=== PATIENT | male | born 1930 | race Caucasian/White ===

== ENCOUNTER 2017-01-06 13:05 | Inpatient (IN) | payer MEDICARE, OTHER ==
[~2017-01-06] VITALS: Ht 165.1 cm; Wt 67.3 kg
[2017-01-06] VITALS (9 sets, daily range): BP systolic 103–136; BP diastolic 56–76; PULSE 84–118; RESP 16–18; TEMP 96.3–97.6; O2SAT 94–98
[~2017-01-06 13:05] MED LIST: ALPR0.5T3 PO; ASPI81CH CHEW; BUME2TAB PO; DIGO0.12 PO; DONE10TA7 PO; FAMO20TA2 PO; GABA300C5 PO; LEVO75TA3 PO; METO25TA6 PO; POTA-245 PO; SERT-132 PO; TRAZ50TA12 PO
[2017-01-06] MEDS ORDERED: EYECAP PO (13:07)
[2017-01-06] MEDS ORDERED: TRAZ100T4 PO (13:07)
[2017-01-06] MEDS ORDERED: TRAZ50TA12 PO (13:52)
[2017-01-06] MEDS ORDERED: PROSTAB PO (13:52)
[2017-01-06] MEDS ORDERED: SENITAB2 PO (13:52)
[2017-01-06 14:37] LABS: CHLORIDE 102 MEQ/L (98-107); POTASSIUM 4.3 MEQ/L (3.5-5.1); SODIUM (NA) 138 MEQ/L (136-145)
[2017-01-06 14:41] LABS: ANION GAP 10 MEQ/L (5-15); BICARBONATE 26.2 MEQ/L (21.0-32.0); BLOOD UREA NITROGEN 40 MG/DL (7-18)
[2017-01-06 14:43] LABS: AUTOMATED NEUTROPHIL # 4.4 TH/MM3 (1.8-7.7); BASOPHIL % 0.5 % (0.0-2.0); EOSINOPHIL % 0.4 % (0.0-4.0); HEMATOCRIT 23.4 % (39.0-51.0); LYMPHOCYTE # 0.6 TH/MM3 (1.0-4.8); MEAN CELL VOLUME 106.3 FL (80.0-100.0); MEAN CORPUSCULAR HEMOGLOBIN 34.8 PG (27.0-34.0); MEAN CORPUSCULAR HGB CONC 32.7 % (32.0-36.0); MONO % 17.4 % (0.0-8.0); NEUT % 71.7 % (16.0-70.0); PLATELET COUNT 122 TH/MM3 (150-450); RED CELL DISTRIBUTION WIDTH 28.8 % (11.6-17.2); WHITE BLOOD COUNT 6.1 TH/MM3 (4.0-11.0)
--- NOTE | 2017-01-06 14:43 | RADHPO ---
EXAM DATE/TIME: 01/06/2017 13:58 [facility] COMPARISON: No previous studies available for comparison. INDICATIONS : Short of breath. MEDICAL HISTORY : Hypertension. Congestive heart failure. Afib. Anemia. SURGICAL HISTORY : Valve replacement. ENCOUNTER: Initial ACUITY: 1 day PAIN SCORE: 8/10 LOCATION: Bilateral chest FINDINGS: The heart is enlarged. Central bronchopulmonary markings are fairly well delineated. There is some patchy areas of consolidation in the right costophrenic angle. No definite infiltrates in the left l jennie. Evidence of prior median sternotomy and valve replacement. CONCLUSION: Partial consolidative infiltrate in the right costophrenic angle. Cardiomegaly. Dominick Carnes MD on January 06, 2017 at 14:40 Board Certified Radiologist. This report was verified electronically.
[2017-01-06 14:44] LABS: ALT (GPT) 61 U/L (12-78); AST (GOT) 41 U/L (15-37); GLOMERULAR FILTRATION RATE 41 ML/MIN (>89)
[2017-01-06 14:45] LABS: TOTAL BILIRUBIN ADULT 1.2 MG/DL (0.2-1.0)
[2017-01-06 14:47] LABS: ALKALINE PHOSPHATASE 133 U/L (45-117)
--- NOTE | 2017-01-06 14:47 | PD ---
HPI Chief Complaint: Respiratory Symptoms Time Seen by Provider: 13:22 Travel History International Travel<30 days: No Contact w/Intl Traveler<30days: No Traveled to known affect area: No History of Present Illness HPI This is an 86-year-old male who has a history of myelodysplastic syndrome and congestive heart failure who presents to the emergency department with increasing shortness of breath, constant, moderate severity, worse with laying flat which is been going on for 2 days. Patient reports he was blood transfusion-dependent and was getting blood transfusions every 2-3 weeks prior to leaving the [place]. 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 They just saw a nurse practitioner today who is going to be his primary care physician and she sent him to the emergency department for evaluation. His legs have also been increasingly swollen. He is supposed to be on Bumex but he didn't get it today because they were coming to the emergency department. PFSH Past Medical History Hx Anticoagulant Therapy: Yes (ASA 81 MG DAILY) Anemia: Yes Atrial Fibrillation: Yes High Cholesterol: Yes Congestive Heart Failure: Yes Dementia: Yes Hypertension: Yes Medical other: Yes (MYELODYSPLASTIC SYNDROME) Immunizations Current: Yes Thyroid Disease: Yes (HYPO) Past Surgical History Cardiac Surgery: Yes (1 VALVE REPLACEMENT, 1 VALVE REPAIR) Eye Surgery: Yes (BILATERAL CATARACTS REMOVED) Tonsillectomy: Yes Other Surgery: Yes (BILATERAL INGUINAL HERNIA REPAIR) Social History Alcohol Use: Yes (RARE) Tobacco Use: No (NEVER) Substance Use: No Allergies-Medications (Allergen,Severity, Reaction): Coded Allergies: No Known Allergies (Unverified , 01/06/17) Reported Meds & Prescriptions Reported Meds & Active Scripts Active Reported Trazodone (Trazodone HCl) 50 Mg Tab 100 Mg PO HS Senior Tabs (Multiple Vitamins W/ Minerals) 1 Tab Tab 1 Tab PO DAILY Prosight (Multiple Vitamins W/ Minerals) 1 Tab Tab 1 Tab PO BID Sertraline (Sertraline HCl) 50 Mg Tab 50 Mg PO DAILY Metoprolol Succinate ER 24 HR (Metoprolol Succinate) 25 Mg Tab 12.5 Mg PO HS Levothyroxine (Levothyroxine Sodium) 75 Mcg Tab 75 Mcg PO DAILY Gabapentin 300 Mg Cap 300 Mg PO TID Famotidine 20 Mg Tab 20 Mg PO DAILY Donepezil 10 Mg Tab 10 Mg PO BID Digoxin 0.125 Mg Tab 0.125 Mg PO DAILY Bumetanide 2 Mg Tab 2 Mg PO DAILY Aspirin 81 Mg Chew 81 Mg CHEW DAILY Alprazolam 0.5 Mg Tab 0.5 Mg PO HS PRN Review of Systems ROS Limitations: Hearing Impaired Physical Exam Narrative GENERAL: Frail elderly male in no acute distress SKIN: Focused skin assessment warm and dry. HEAD: Atraumatic. Normocephalic. EYES: Pupils equal and round. No injection or drainage. Pale conjunctiva ENT: Moist mucous membranes NECK: Trachea midline. CARDIOVASCULAR: Regular rate and rhythm. No murmur appreciated. 2+ pitting edema in the bilateral lower extremities, right greater than left which family reports is chronic. RESPIRATORY: Clear to auscultation. Breath sounds equal bilaterally. GASTROINTESTINAL: Abdomen soft, non-tender, nondistended. MUSCULOSKELETAL: No obvious deformities. NEUROLOGICAL: Awake and alert. No obvious cranial nerve deficits. Moving all extremities. PSYCHIATRIC: Appropriate mood and affect; insight and judgment normal. Data Data Last Documented VS Vital Signs Date Time Temp Pulse Resp B/P Pulse Ox O2 Delivery O2 Flow Rate FiO2 01/06/17 13:30 103 16 96 Room Air 01/06/17 13:15 97.4 108/59 Orders Type And Screen (01/06/17 13:42) Prothrombin Time / Inr (Pt) (01/06/17 13:42) Act Partial Throm Time (Ptt) (01/06/17 13:42) Complete Blood Count With Diff (01/06/17 13:42) Comprehensive Metabolic Panel (01/06/17 13:42) ^ Insert Iv (01/06/17 13:42) B-Type Natriuretic Peptide (01/06/17 13:42) Chest, Single Ap (01/06/17 ) Bumetanide Inj (Bumex Inj) (01/06/17 15:30) Admit Order (Ed Use Only) (01/06/17 15:37) Labs Laboratory Tests Test 01/06/17 14:10 White Blood Count 6.1 TH/MM3 Red Blood Count 2.20 MIL/MM3 Hemoglobin 7.6 GM/DL Hematocrit 23.4 % Mean Corpuscular Volume 106.3 FL Mean Corpuscular Hemoglobin 34.8 PG Mean Corpuscular Hemoglobin 32.7 % Concent Red Cell Distribution Width 28.8 % Platelet Count 122 TH/MM3 Mean Platelet Volume 8.7 FL Neutrophils (%) (Auto) 71.7 % Lymphocytes (%) (Auto) 10.0 % Monocytes (%) (Auto) 17.4 % Eosinophils (%) (Auto) 0.4 % Basophils (%) (Auto) 0.5 % Neutrophils # (Auto) 4.4 TH/MM3 Lymphocytes # (Auto) 0.6 TH/MM3 Monocytes # (Auto) 1.1 TH/MM3 Eosinophils # (Auto) 0.0 TH/MM3 Basophils # (Auto) 0.0 TH/MM3 CBC Comment AUTO DIFF Differential Comment AUTO DIFF CONFIRMED Platelet Estimate LOW Platelet Morphology Comment NORMAL Basophilic Stippling FAINT Ovalocytes 1+ Prothrombin Time 14.9 SEC Prothromb Time International 1.3 RATIO Ratio Activated Partial 29.7 SEC Thromboplast Time Sodium Level 138 MEQ/L Potassium Level 4.3 MEQ/L Chloride Level 102 MEQ/L Carbon Dioxide Level 26.2 MEQ/L Anion Gap 10 MEQ/L Blood Urea Nitrogen 40 MG/DL Creatinine 1.60 MG/DL Estimat Glomerular Filtration 41 ML/MIN Rate Random Glucose 116 MG/DL Calcium Level 8.6 MG/DL Total Bilirubin 1.2 MG/DL Aspartate Amino Transf 41 U/L (AST/SGOT) Alanine Aminotransferase 61 U/L (ALT/SGPT) Alkaline Phosphatase 133 U/L B-Type Natriuretic Peptide 3017 PG/ML Total Protein 7.4 GM/DL Albumin 3.8 GM/DL Blood Type A POSITIVE Antibody Screen NEGATIVE Blood Bank Comment [facility] Medical Decision Making Medical Screen Exam Complete: Yes Emergency Medical Condition: Yes Differential Diagnosis Congestive heart failure, symptomatic anemia, pneumonia, pulmonary embolism Narrative Course This is an 86-year-old male who presents to the emergency department with a history of myelodysplastic syndrome and congestive heart failure here with shortness of breath. He appears grossly volume overloaded on exam. He is placed in a monitor and an IV was established. Labs are obtained which demonstrate anemia and a BNP of 3000. He has an infiltrate on chest x-ray which I suspect is pulmonary edema as he is otherwise afebrile and has no leukocytosis. He was given a dose of IV Bumex. I think patient requires admission for IV diuresis. He likely requires a blood transfusion but I might consider diuresing the patient first in the setting of his high risk of worsening pulmonary edema. Physician Communication Physician Communication Discussed with Dr. Linn Diagnosis Primary Impression: Congestive heart failure Qualified Code: I50.9 - Acute congestive heart failure, unspecified congestive heart failure type Additional Impression: Symptomatic anemia Admitting Information Admitting Physician Requests: it La العراقي MD Jan 06, 2017 14:47
[2017-01-06 15:00] LABS: APTT (PATIENT) 29.7 SEC (24.3-30.1); INTERNATIONAL NORMALIZED RATIO 1.3 RATIO; PROTHROMBIN TIME - PATIENT 14.9 SEC (9.8-11.6)
[2017-01-06 15:15] LABS: HEMO FLAGS AUTO DIFF
[2017-01-06] MEDS ORDERED: BUMETANIDE INJ 1 MG/4 ML VIAL IV PUSH ONE ×2 (15:30→16:30)
[2017-01-06] MEDS ORDERED: SENNOSIDES 8.6 MG TAB PO PRN (15:45)
[2017-01-06] MEDS ORDERED: MAGNESIUM HYDROXIDE SUSP 30 ML CUP PO PRN (15:45)
[2017-01-06] MEDS ORDERED: BISACODYL 10 MG SUPP RECTAL PRN (15:45)
[2017-01-06] MEDS ORDERED: NALOXONE HCL 0.4 MG/ML AMP IV PRN (15:45)
[2017-01-06] MEDS ORDERED: SODIUM CHLORIDE 0.9% FLUSH 10 ML FLUSH IV FLUSH PRN (15:45)
[2017-01-06] MEDS ORDERED: LACTULOSE SYRUP 20 GM/30 ML CUP PO PRN (15:45)
[2017-01-06 15:59] LABS: OVALOCYTES 1+ (NORMAL)
[2017-01-06 16:00] LABS: PLATELET ESTIMATE SMEAR LOW (NORMAL); PLATELET MORPHOLOGY NORMAL (NORMAL); SCAN/DIFF AUTO DIFF CONFIRMED
[2017-01-06] MEDS ORDERED: PILL SPLITTER OTHER PRN (16:00)
[2017-01-06] MEDS ORDERED: SODIUM CHLOR 0.9% 250 ML INJ 250 ML IV ONE (16:15)
[2017-01-06] MEDS ORDERED: POTASSIUM CHLORIDE 10 MEQ CONTROLLED RELEASE TAB PO ONE (16:30)
[2017-01-06] MEDS ORDERED: FUROSEMIDE 40 MG/4 ML VIAL IV PUSH ONE (16:30)
--- NOTE | 2017-01-06 16:34 | HHI.HP ---
[facility] Primary Care Physician TREVOR Tapia Admission Diagnosis chf, symptomatic anemia Diagnoses: (1) Shortness of breath Diagnosis: Principal (2) Orthopnea Diagnosis: Principal (3) Acute exacerbation of congestive heart failure Diagnosis: Principal (4) Myelodysplastic syndrome Diagnosis: Secondary (5) Atrial fibrillation Diagnosis: Secondary Chief Complaint: Shortness of breath, can't sleep Travel History International Travel<30 Days: No Contact w/Intl Traveler <30 Da: No Traveled to Known Affected Are: No History of Present Illness Written by Jeffrey Soni, acting as scribe for Dr. Linn on 01/06/17 at 16: 33. 86 year-old male with known history of chronic atrial fibrillation, congestive heart failure, myelodysplastic disorder, cardiac valve replacement, hypertension, dementia, hypothyroidism who presented to hospital because of worsening shortness of breath and dyspnea. 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 He traveled here for vacation with his daughter and son-in-law. And over last couple days he is been having worsening shortness of breath, dyspnea, unable to sleep at night, orthopnea. He does have intermittent chest discomfort which he states that with known on for a long time. He is followed by his regular doctors in [place]. And indicates that his medications were adjusted a week ago. He states that his diuretic was decreased down to only 1 tablet a day from 2 tablets a day because of possible underlying kidney abnormalities. Patient indicates that he is Short of Breath like This in the past Because of His Myelodysplastic Disorder When He Had Severe Anemia Requiring Transfusion. Patient indicates that the last time that that happened was a couple months ago and his hemoglobin was in the 6ish. Patient does indicate he does have chronic atrial fibrillation which he is not on any anticoagulation at this time due to his anemia, myelodysplastic disorder. He does have chronic right lower extremity edema in which he states is had workup done before to rule out any DVT. The son-in-law indicates that he is had a 2 pound weight gain every day for the last 3 days. The patient had workup done emergency department and found to have elevated BNP, pleural effusion and recommended admission for further evaluation management. Review of Systems Constitutional: COMPLAINS OF: Weight gain, DENIES: Diaphoretic episodes, Fatigue, Fever, Weight loss, Chills, Dizziness, Change in appetite, Night Sweats Eyes: DENIES: Blurred vision, Diplopia, Eye inflammation, Eye pain, Vision loss , Photosensitivity, Double Vision Ears, nose, mouth, throat: DENIES: Vertigo, Nasal discharge, Throat pain, Ear Pain, Running Nose, Sinus Pain Respiratory: COMPLAINS OF: Cough, Sputum production, Shortness of breath, DENIES: Apneas, Snoring, Wheezing, Hemoptysis Cardiovascular: COMPLAINS OF: Lower Extremity Edema, Orthopnea, DENIES: Chest pain, Palpitations, Syncope, Dyspnea on Exertion Gastrointestinal: COMPLAINS OF: Diarrhea, DENIES: Abdominal pain, Black stools , Bloody stools, Constipation, Nausea, Vomiting, Difficulty Swallowing, Anorexia Musculoskeletal: DENIES: Joint pain, Muscle aches, Stiffness, Joint Swelling, Back pain, Neck pain Neurologic: DENIES: Abnormal gait, Headache, Localized weakness, Paresthesias, Seizures, Speech Problems, Tremor, Poor Balance Past Family Social History Past Medical History Hypertension Chronic atrial fibrillation Hypothyroidism Congestive heart failure Chronic kidney disease Dementia Myelodysplastic syndrome requiring transfusion Macular degeneration Hyperlipidemia Past Surgical History Cardiac valve replacement Cardiac valve repair Bilateral cataract surgery Bilateral hernia repair Reported Medications Reported Meds & Active Scripts Active Reported Trazodone (Trazodone HCl) 50 Mg Tab 100 Mg PO HS Senior Tabs (Multiple Vitamins W/ Minerals) 1 Tab Tab 1 Tab PO DAILY Prosight (Multiple Vitamins W/ Minerals) 1 Tab Tab 1 Tab PO BID Sertraline (Sertraline HCl) 50 Mg Tab 50 Mg PO DAILY Metoprolol Succinate ER 24 HR (Metoprolol Succinate) 25 Mg Tab 12.5 Mg PO HS Levothyroxine (Levothyroxine Sodium) 75 Mcg Tab 75 Mcg PO DAILY Gabapentin 300 Mg Cap 300 Mg PO TID Famotidine 20 Mg Tab 20 Mg PO DAILY Donepezil 10 Mg Tab 10 Mg PO BID Digoxin 0.125 Mg Tab 0.125 Mg PO DAILY Bumetanide 2 Mg Tab 2 Mg PO DAILY Aspirin 81 Mg Chew 81 Mg CHEW DAILY Alprazolam 0.5 Mg Tab 0.5 Mg PO HS PRN Allergies: Coded Allergies: No Known Allergies (Unverified , 01/06/17) Family History Reviewed is significant for mother having late onset diabetes, father having kidney stones Social History Patient denies any tobacco use, does drink alcohol occasionally. No illicit drug use Physical Exam Vital Signs Vital Signs Date Time Temp Pulse Resp B/P Pulse Ox O2 Delivery O2 Flow Rate FiO2 01/06/17 13:30 103 16 96 Room Air 01/06/17 13:15 97.4 112 16 108/59 96 Physical Exam GENERAL: Well-developed, well-nourished, in no acute distress. alert and orientated HEENT: Head is normocephalic without any lesions or masses noted. Facial features are symmetric. Eyes: Pupils equal round reactive to light. Extraocular muscles are intact. Conjunctivae were clear. Oropharyngeal: Pharynx without any erythema edema. Tongue is midline without deviation. Buccal mucosa is moist without any masses or lesions NECK: Supple without any masses. Trachea midline no deviation. No JVD, no bruits are appreciated CARDIAC: Regular rhythm, regular rate. S1/S2 are heard. 2 or 6 ejection murmur left sternal border. Gallops or rubs. LUNGS: Diminished breath sounds noted mainly right lower lung field. No wheeze, rhonchi or rales. No use of accessory muscles on inspiration or expiration. ABDOMEN: Soft, nontender. Nondistended. Bowel sounds heard in all 4 quadrants. No organomegaly or masses. Negative rebound, negative guarding EXTREMITIES: Bilateral lower extremity 2+ pitting edema. Right lower extremity is larger than left by 2 cm. Pulses are equal bilaterally. No cyanosis or clubbing NEUROLOGY: Mood and affect appear appropriate. Cranial nerves II through XII grossly intact. Muscle strength 5/5 in upper and lower extremities bilaterally. Deep tendon reflexes are 2+ in upper and lower extremities bilaterally. Laboratory Laboratory Tests Test 01/06/17 14:10 White Blood Count 6.1 Red Blood Count 2.20 Hemoglobin 7.6 Hematocrit 23.4 Mean Corpuscular Volume 106.3 Mean Corpuscular Hemoglobin 34.8 Mean Corpuscular Hemoglobin 32.7 Concent Red Cell Distribution Width 28.8 Platelet Count 122 Mean Platelet Volume 8.7 Neutrophils (%) (Auto) 71.7 Lymphocytes (%) (Auto) 10.0 Monocytes (%) (Auto) 17.4 Eosinophils (%) (Auto) 0.4 Basophils (%) (Auto) 0.5 Neutrophils # (Auto) 4.4 Lymphocytes # (Auto) 0.6 Monocytes # (Auto) 1.1 Eosinophils # (Auto) 0.0 Basophils # (Auto) 0.0 CBC Comment AUTO DIFF Differential Comment AUTO DIFF CONFIRMED Platelet Estimate LOW Platelet Morphology Comment NORMAL Basophilic Stippling FAINT Ovalocytes 1+ Prothrombin Time 14.9 Prothromb Time International 1.3 Ratio Activated Partial 29.7 Thromboplast Time Sodium Level 138 Potassium Level 4.3 Chloride Level 102 Carbon Dioxide Level 26.2 Anion Gap 10 Blood Urea Nitrogen 40 Creatinine 1.60 Estimat Glomerular Filtration 41 Rate Random Glucose 116 Calcium Level 8.6 Total Bilirubin 1.2 Aspartate Amino Transf 41 (AST/SGOT) Alanine Aminotransferase 61 (ALT/SGPT) Alkaline Phosphatase 133 B-Type Natriuretic Peptide 3017 Total Protein 7.4 Albumin 3.8 Blood Type A POSITIVE Antibody Screen NEGATIVE Blood Bank Comment Result Diagram: 01/06/17 1410 01/06/17 1410 Imaging Last Impressions Chest X-Ray 01/06/17 0000 Signed Impressions: Service Date/Time: Friday, January 06, 2017 13:58 - CONCLUSION: Partial consolidative infiltrate in the right costophrenic angle. Cardiomegaly. Dominick Carnes MD Assessment and Plan Assessment and Plan Acute congestive heart failure, unknown diastolic versus systolic Likely secondary to reduction in patient's diuretic over the last week. Chest x-ray does show pleural effusion noted in the right costophrenic angle, cardiomegaly, bilateral lower extremity edema, elevated BNP Patient given Bumex 1 mg IV, will continue diuretic Insert Lawson for fluid monitoring, likely some component of outlet obstruction. Strict input and output Continue beta benji, evaluate for KAYA inhibitor use. Patient blood pressure low at this time Obtain echocardiogram Lower extremity edema, right greater than left. Obtain venous Doppler/ultrasound to evaluate for DVT Chronic atrial fibrillation Obtain digoxin level Continue home medications Patient/family indicates that he has not anticoagulated secondary to myelodysplastic syndrome Myelodysplastic syndrome Hemoglobin 7.6, platelet count 122 Transfuse to maintain hemoglobin greater than 8.0 Hypothyroidism Obtain TSH Resume replacement therapy Chronic kidney disease, unknown stage at this time Continue monitor renal function Avoid nephrotoxins DVT prevention Sequential compression devices, avoid chemical prophylaxis secondary to myelodysplastic syndrome Code Status Full code Discussed Condition With [facility] ED physician, nurse, family at bedside. This note was transcribed by scribe [Jeffrey Soni]. I, Dr. Masoud Linn personally performed the history, physical exam, and medical decision making; and confirmed the accuracy of the information in the transcribed note. Authenticated by Dr. Masoud Linn on 01/06/17 at 17:55. Physician Certification 2 Midnight Certification Type: Admission for Inpatient Services Order for Inpatient Services The services are ordered in accordance with Medicare regulations or non- Medicare payer requirements, as applicable. In the case of services not specified as inpatient-only, they are appropriately provided as inpatient services in accordance with the 2-midnight benchmark. Estimated LOS (days): 2 days is the estimated time the patient will need to remain in the hospital, assuming treatment plan goals are met and no additional complications. Post-Hospital Plan: Not yet determined Problem Qualifiers (1) Acute exacerbation of congestive heart failure: Qualified Code: I50.9 - Acute on chronic congestive heart failure, unspecified congestive heart failure type (2) Atrial fibrillation: Qualified Code: I48.91 - Atrial fibrillation, unspecified type Jeffrey Soni Jan 06, 2017 16:33 Masoud Linn MD Jan 06, 2017 17:55
[2017-01-06 16:37] LABS: DIGOXIN 1.2 NG/ML (0.8-2.0)
--- NOTE | 2017-01-06 17:14 | RADHPO ---
EXAM DATE/TIME: 01/06/2017 16:50 [facility] COMPARISON: No previous studies available for comparison. INDICATIONS : Bilateral leg pain and swelling. MEDICAL HISTORY : Hypercholesterolemia. Hypothyroidism. Hypertension. CHF. A-fib. Dementia. Myelodysplastic syndrome. SURGICAL HISTORY : Tonsillectomy.Inguinal hernia repair. Valve replacement. ENCOUNTER: Initial ACUITY: 4 - 6 months PAIN SCORE: 3/10 LOCATION: Bilateral legs. TECHNIQUE: Venous ultrasound of the left and right leg was performed from the inguinal ligament to the proximal calf. Real-time, color Doppler and spectral tracing, compression and augmentation techniques were us ed. FINDINGS: RIGHT LEG: There is normal compressibility of the deep venous system from the inguinal region to the proximal ca lf. No echogenic clot is seen in the lumen of the common femoral, femoral, popliteal, and posterior tibial veins. There is a normal response of the venous system to proximal and distal augmentation an d respiration. LEFT LEG: There is normal compressibility of the deep venous system from the inguinal region to the proximal ca lf. No echogenic clot is seen in the lumen of the common femoral, femoral, popliteal, and posterior tibial veins. There is a normal response of the venous system to proximal and distal augmentation an d respiration. CONCLUSION: The study is negative for deep venous thrombosis bilateral lower extremities. Dominick Carnes MD on January 06, 2017 at 17:11 Board Certified Radiologist. This report was verified electronically.
[2017-01-06] MEDS: SODIUM CHLORIDE 0.9% FLUSH 10 ML FLUSH IV FLUSH SCH (21:00)
[2017-01-06] MEDS: DONEPEZIL HCL 5 MG TAB PO SCH (21:00)
[2017-01-06] MEDS: DOCUSATE SODIUM 50 MG/SENNA 8.6 MG TAB PO SCH (21:00)
[2017-01-06] MEDS ORDERED: GABAPENTIN 100 MG CAP PO SCH (21:00)
[2017-01-06] MEDS: METOPROLOL SUCCINATE 25 MG EXTENDED RELEASE TAB PO SCH (22:17)
[2017-01-07] VITALS: BP 103/65; PULSE 84; RESP 18; TEMP 96.5; O2SAT 94
[2017-01-07 04:00] VITALS: BP 118/60; PULSE 89; RESP 18; TEMP 96.4; O2SAT 94
[2017-01-07] MEDS: LEVOTHYROXINE SODIUM 75 MCG TAB PO SCH (04:52)
[2017-01-07 05:56] LABS: BASOPHIL % 0.5 % (0.0-2.0); EOSINOPHIL % 0.4 % (0.0-4.0); HEMATOCRIT 24.5 % (39.0-51.0); LYMPH % 8.4 % (9.0-44.0); LYMPHOCYTE # 0.7 TH/MM3 (1.0-4.8); MEAN CELL VOLUME 101.9 FL (80.0-100.0); MEAN CORPUSCULAR HEMOGLOBIN 34.6 PG (27.0-34.0); MEAN CORPUSCULAR HGB CONC 33.9 % (32.0-36.0); MONO % 12.8 % (0.0-8.0); NEUT % 77.9 % (16.0-70.0); PLATELET COUNT 111 TH/MM3 (150-450); RED CELL DISTRIBUTION WIDTH 31.7 % (11.6-17.2); WHITE BLOOD COUNT 8.8 TH/MM3 (4.0-11.0)
[2017-01-07 06:19] LABS: CHLORIDE 102 MEQ/L (98-107); POTASSIUM 4.1 MEQ/L (3.5-5.1); SODIUM (NA) 139 MEQ/L (136-145)
[2017-01-07 06:20] LABS: HEMO FLAGS AUTO DIFF
[2017-01-07 06:28] LABS: ANION GAP 10 MEQ/L (5-15); BICARBONATE 26.8 MEQ/L (21.0-32.0)
[2017-01-07 06:31] LABS: ALT (GPT) 55 U/L (12-78); AST (GOT) 37 U/L (15-37); BLOOD UREA NITROGEN 36 MG/DL (7-18); GLOMERULAR FILTRATION RATE 41 ML/MIN (>89)
[2017-01-07 06:33] LABS: TOTAL BILIRUBIN ADULT 2.5 MG/DL (0.2-1.0)
[2017-01-07 06:34] LABS: ALKALINE PHOSPHATASE 121 U/L (45-117)
[2017-01-07 07:40] LABS: OVALOCYTES 1+ (NORMAL); SCAN/DIFF AUTO DIFF CONFIRMED
[2017-01-07 08:00] VITALS: BP 101/63; PULSE 78; RESP 20; TEMP 96.5; O2SAT 90
[2017-01-07] MEDS: DOCUSATE SODIUM 50 MG/SENNA 8.6 MG TAB PO SCH ×2 (09:00→21:00)
[2017-01-07 10:00] VITALS: PULSE 80
[2017-01-07] MEDS: BUMETANIDE 1 MG TAB PO SCH (10:06)
[2017-01-07] MEDS: DONEPEZIL HCL 5 MG TAB PO SCH ×2 (10:06→21:40)
[2017-01-07] MEDS: DIGOXIN 0.125 MG TAB PO SCH (10:06)
[2017-01-07] MEDS: FAMOTIDINE 20 MG TAB PO SCH (10:07)
[2017-01-07] MEDS: SERTRALINE HCL 50 MG TAB PO SCH (10:07)
[2017-01-07] MEDS: GABAPENTIN 100 MG CAP PO SCH ×2 (10:08→21:40)
[2017-01-07] MEDS: SODIUM CHLORIDE 0.9% FLUSH 10 ML FLUSH IV FLUSH SCH ×2 (10:09→21:07)
[2017-01-07] MEDS ORDERED: traMADol HCL 50 MG TAB PO PRN (11:45)
[2017-01-07 11:57] VITALS: BP 136/71; PULSE 97; RESP 24; TEMP 97.1; O2SAT 95
[2017-01-07] MEDS ORDERED: BUMETANIDE INJ 1 MG/4 ML VIAL IV PUSH ONE (12:30)
[2017-01-07] MEDS ORDERED: TAMSULOSIN HCL 0.4 MG CAP PO ONE (12:30)
--- NOTE | 2017-01-07 12:40 | HHI.PR ---
Subjective Remarks Patient says that shortness of breath and alertness is better. He reports extreme pain from Lawson. Asking to be removed. Denies any chest pain. Patient also reports chronic diarrhea over the past month. He does report recent antibiotic use for tooth infection several months ago. Objective Vital Signs Date Time Temp Pulse Resp B/P Pulse Ox O2 Delivery O2 Flow Rate FiO2 01/07/17 11:57 97.1 97 24 136/71 95 01/07/17 08:00 96.5 78 20 101/63 90 01/07/17 04:00 96.4 89 18 118/60 94 01/07/17 00:00 96.5 84 18 103/65 94 01/06/17 23:25 96.3 84 18 103/63 94 01/06/17 23:10 97.6 99 18 121/56 94 01/06/17 20:00 96.5 87 18 121/76 97 01/06/17 20:00 118 01/06/17 18:20 110 01/06/17 17:44 96.5 87 18 121/76 97 01/06/17 16:00 90 16 118/68 96 Room Air 01/06/17 15:00 104 16 136/73 96 Room Air 01/06/17 14:00 100 16 124/74 98 Room Air 01/06/17 13:30 103 16 96 Room Air 01/06/17 13:15 97.4 112 16 108/59 96 I/O 01/06/17 01/06/17 01/06/17 01/07/17 01/07/17 01/07/17 07:00 15:00 23:00 07:00 15:00 23:00 Intake Total 980 ml 550 ml Output Total 200 ml 2135 ml 1200 ml Balance -200 ml -1155 ml -650 ml Intake Oral 980 ml 200 ml IV Total 350 ml Output Urine Total 200 ml 2135 ml 1200 ml # Voids 1 5 # Bowel Movements 0 Result Diagram: 01/07/173 01/07/173 Imaging Last Impressions Lower Extremity Ultrasound 01/06/17 0000 Signed Impressions: Service Date/Time: Friday, January 06, 2017 16:50 - CONCLUSION: The study is negative for deep venous thrombosis bilateral lower extremities. Dominick Carnes MD Chest X-Ray 01/06/17 0000 Signed Impressions: Service Date/Time: Friday, January 06, 2017 13:58 - CONCLUSION: Partial consolidative infiltrate in the right costophrenic angle. Cardiomegaly. Dominick Carnes MD Objective Remarks GENERAL: Incision sitting up in bed. Appears uncomfortable from Lawson. He is alert. SKIN: Warm and dry. HEAD: Normocephalic. EYES: No scleral icterus. No injection or drainage. NECK: Supple, trachea midline. No JVD. CARDIOVASCULAR: Regular rate and rhythm without murmurs, gallops, or rubs. RESPIRATORY: Breath sounds equal bilaterally. No accessory muscle use. Crackles from yesterday have improved. GASTROINTESTINAL: Abdomen soft, non-tender, nondistended. MUSCULOSKELETAL: No cyanosis, trace peripheral edema. BACK: Nontender without obvious deformity. No CVA tenderness. A/P Assessment and Plan =====01/07/17 C. difficile ordered for diarrhea Remove Lawson. Start Flomax Hemoglobin 8.3 improved from 7.6 after transfusion. No signs of bleeding. //Acute congestive heart failure, unknown diastolic versus systolic Likely secondary to reduction in patient's diuretic over the last week. Chest x-ray does show pleural effusion noted in the right costophrenic angle, cardiomegaly, bilateral lower extremity edema, elevated BNP Patient given Bumex 1 mg IV, will continue diuretic Insert Lawson for fluid monitoring, likely some component of outlet obstruction. Strict input and output Continue beta benji, evaluate for KAYA inhibitor use. -Trying Flomax for urinary retention. We'll evaluate a beta benji use. Fluid overload improving. Echocardiogram pending. //Lower extremity edema, right greater than left. This is relatively chronic. Ultrasound negative for DVT. //Chronic atrial fibrillation Obtain digoxin level Continue home medications Patient/family indicates that he has not anticoagulated secondary to myelodysplastic syndrome //Myelodysplastic syndrome Hemoglobin 7.6, platelet count 122 Transfuse to maintain hemoglobin greater than 8.0 //Hypothyroidism Obtain TSH Resume replacement therapy //Chronic kidney disease, unknown stage at this time [place] 1.6 on admission. Stable. Monitor. -Avoid nephrotoxins //BPH/urinary retention. Patient post void 380 MLS upon Lawson placement. -01/07. With significant pain. We'll remove Lawson. Try Flomax. //Subacute diarrhea We'll order C. difficile of stool. Recent antibiotics for tooth infection several months ago. //DVT prevention Sequential compression devices, avoid chemical prophylaxis secondary to myelodysplastic syndrome Discharge Planning Depending on clinical course, may be able to go home to family. Masoud Linn MD Jan 07, 2017 12:40
--- NOTE | 2017-01-07 13:17 | RADHPO ---
EXAM DATE/TIME: 01/07/2017 12:55 [facility] COMPARISON: CHEST SINGLE AP, January 06, 2017, 13:58. INDICATIONS : Short of breath MEDICAL HISTORY : Hypercholesterolemia. Hyperparathyroidism. Hypertension. Congestive heart failure. Afib. Anemia. SURGICAL HISTORY : Tonsillectomy. Valve replacement. ENCOUNTER: Subsequent ACUITY: 2 days PAIN SCORE: 0/10 LOCATION: Bilateral chest FINDINGS: A single portable frontal view the chest shows worsening consolidation within the right lung base. Le ft lung is clear. Blunting of the costophrenic angles is seen bilaterally. Heart is enlarged. Median sternotomy wires and prosthetic heart valve. CONCLUSION: Cardiomegaly with tiny bilateral pleural effusions and right lower lobe intraalveolar opacity likely related to pulmonary edema. Dominick Platt Jr., MD on January 07, 2017 at 13:14 Board Certified Radiologist. This report was verified electronically.
--- NOTE | 2017-01-07 17:07 | ECHRPT ---
Indication: chf CONCLUSIONS LV enlargement. Mild LVH. The left ventricular systolic function is severely reduced with an estimated ejection fraction of 20 %. The right ventricle is mildly dilated. The left atrial size is [id number] dilated. The right atrial size is mildly dilated. The aortic root and proximal ascending aorta are not well visualized. Trace mitral valve regurgitation. Normally functioning mitral valve prosthesis.Trace aortic valve regurgitation. Aortic sclerosis. There is mild tricuspid valve regurgitation. BP: 121 / 76 HR: 87 Rhythm: Sinus MEASUREMENTS (Male / Female) Normal Values Technical Quality:Good 2D ECHO LV Diastolic Diameter PLAX 5.8 cm 4.2 - 5.9 / 3.9 - 5.3 cm LV Systolic Diameter PLAX 5.1 cm IVS Diastolic Thickness 1.2 cm 0.6 - 1.0 / 0.6 - 0.9 cm LVPW Diastolic Thickness 1.2 cm 0.6 - 1.0 / 0.6 - 0.9 cm LV Relative Wall Thickness 0.4 RV Internal Dim ED PLAX 4.4 cm LVOT Diameter 2.1 cm M-MODE Aortic Root Diameter MM 2.7 cm LA Systolic Diameter MM 5.2 cm LA Ao Ratio MM 1.9 DOPPLER AV Peak Velocity 181.0 cm/s AV Peak Gradient 13.1 mmHg AI Peak Velocity 335.0 cm/s AI Peak Gradient 44.9 mmHg AI Pressure Half Time 661.0 ms LVOT Peak Velocity 79.0 cm/s LVOT Peak Gradient 2.5 mmHg AV Area Cont Eq pk 1.5 cm Mitral E Point Velocity 193.0 cm/s Mitral A Point Velocity 62.3 cm/s Mitral E to A Ratio 3.1 TR Peak Velocity 309.0 cm/s TR Peak Gradient 38.0 mmHg PV Peak Velocity 95.0 cm/s PV Peak Gradient 3.6 mmHg FINDINGS Left Ventricle LV enlargement. Mild LVH. The left ventricular systolic function is severely reduced with an estimated ejection fraction of 20 %. Right Ventricle The right ventricle is mildly dilated. Left Atrium The left atrial size is [id number] dilated. Right Atrium The right atrial size is mildly dilated. Atrial Septum Normal atrial septal thickness without atrial level shunting by limited color doppler interrogation. Aorta The aortic root and proximal ascending aorta are not well visualized. Mitral Valve Trace mitral valve regurgitation. Normally functioning mitral valve prosthesis. Aortic Valve Trace aortic valve regurgitation. Aortic sclerosis. Tricuspid Valve There is mild tricuspid valve regurgitation. Pulmonary Valve No pulmonary valve regurgitation or stenosis. Vessels The inferior vena cava is normal in size. Pericardium No pericardial effusion. Ya Diane MD, FACC Edited by: [employer] CV Insecticide Supervisor (Electronically Signed) Final Date:07 January 2017 17:07 Amended: 08 January 2017 13:42 MTDD
[2017-01-07 17:49] LABS: INTERNATIONAL NORMALIZED RATIO 1.4 RATIO; PROTHROMBIN TIME - PATIENT 15.2 SEC (9.8-11.6)
[2017-01-07 19:02] LABS: C. DIFF EPI 027 PRESUMPTIVE NEGATIVE (NEGATIVE); C. DIFF TOXIN PCR NEGATIVE (NEGATIVE)
--- NOTE | 2017-01-07 19:35 | EKG ---
Date Performed: 01/06/2017 Time Performed: 16:15:50 PTAGE: 86 years EKG: Atrial fibrillation Left anterior fascicular block Inferior/lateral ST-T changes are nonspe cific Abnormal ECG NO PREVIOUS TRACING DOCTOR: Jorge Malin Interpretating Date/Time 01/07/2017 19:34:48
[2017-01-07 20:00] VITALS: BP 109/62; PULSE 98; RESP 16; TEMP 96.8; O2SAT 96
[2017-01-07] MEDS: METOPROLOL SUCCINATE 25 MG EXTENDED RELEASE TAB PO SCH (21:39)
[2017-01-07] MEDS: ALPRAZolam 0.5 MG TAB PO PRN (21:43)
[2017-01-08] VITALS: BP 100/56; PULSE 84; RESP 16; TEMP 96.4; O2SAT 97
[2017-01-08 04:00] VITALS: BP 96/55; PULSE 76; RESP 16; TEMP 96; O2SAT 98
[2017-01-08 05:48] LABS: AUTOMATED NEUTROPHIL # 3.2 TH/MM3 (1.8-7.7); BASOPHIL % 0.6 % (0.0-2.0); EOSINOPHIL # 0.1 TH/MM3 (0-0.4); EOSINOPHIL % 1.3 % (0.0-4.0); HEMATOCRIT 23.4 % (39.0-51.0); LYMPH % 17.5 % (9.0-44.0); LYMPHOCYTE # 0.9 TH/MM3 (1.0-4.8); MEAN CELL VOLUME 102.2 FL (80.0-100.0); MEAN CORPUSCULAR HEMOGLOBIN 33.8 PG (27.0-34.0); MONO % 16.5 % (0.0-8.0); NEUT % 64.1 % (16.0-70.0); PLATELET COUNT 110 TH/MM3 (150-450); RED BLOOD COUNT 2.29 MIL/MM3 (4.50-5.90); RED CELL DISTRIBUTION WIDTH 31.6 % (11.6-17.2)
[2017-01-08 05:53] LABS: HEMO FLAGS AUTO DIFF; POTASSIUM 3.5 MEQ/L (3.5-5.1)
[2017-01-08 06:04] LABS: BICARBONATE 28.3 MEQ/L (21.0-32.0); MAGNESIUM 2.7 MG/DL (1.5-2.5)
[2017-01-08] MEDS: LEVOTHYROXINE SODIUM 75 MCG TAB PO SCH (06:33)
[2017-01-08 07:31] LABS: OVALOCYTES 1+ (NORMAL); TARGET CELLS 1+ (NORMAL)
[2017-01-08 07:32] LABS: KERATOCYTES OCC (NORMAL); SCAN/DIFF AUTO DIFF CONFIRMED
[2017-01-08 08:00] VITALS: BP 115/58; PULSE 87; RESP 24; TEMP 97; O2SAT 94
[2017-01-08] MEDS: TAMSULOSIN HCL 0.4 MG CAP PO SCH (08:14)
[2017-01-08] MEDS: FAMOTIDINE 20 MG TAB PO SCH (08:14)
[2017-01-08] MEDS: GABAPENTIN 100 MG CAP PO SCH ×2 (08:15→22:28)
[2017-01-08] MEDS ORDERED: PHYTONADIONE 5 MG TAB PO ONE (08:15)
[2017-01-08] MEDS: DIGOXIN 0.125 MG TAB PO SCH (08:15)
[2017-01-08] MEDS: SERTRALINE HCL 50 MG TAB PO SCH (08:16)
[2017-01-08] MEDS: DONEPEZIL HCL 5 MG TAB PO SCH ×2 (08:16→22:27)
[2017-01-08] MEDS: BUMETANIDE 1 MG TAB PO SCH (08:17)
[2017-01-08] MEDS: DOCUSATE SODIUM 50 MG/SENNA 8.6 MG TAB PO SCH ×2 (08:17→21:00)
[2017-01-08] MEDS: SODIUM CHLORIDE 0.9% FLUSH 10 ML FLUSH IV FLUSH SCH ×2 (08:19→22:26)
[2017-01-08 08:32] LABS: ALT (GPT) 42 U/L (12-78); AST (GOT) 25 U/L (15-37)
[2017-01-08 08:33] LABS: INDIRECT BILIRUBIN 0.6 MG/DL (0.0-0.8); TOTAL BILIRUBIN ADULT 1.1 MG/DL (0.2-1.0)
[2017-01-08 08:34] LABS: ALKALINE PHOSPHATASE 106 U/L (45-117)
[2017-01-08] MEDS ORDERED: TAMSULOSIN HCL 0.4 MG CAP PO SCH (09:00)
--- NOTE | 2017-01-08 09:02 | MB ---
cc: AMILCAR GARCIA MD DATE OF CONSULTATION 01/07/2017 REASON FOR CONSULTATION 1. Gross hematuria following removal of Lawson catheter. 2. History of urinary retention. HISTORY OF PRESENT ILLNESS The patient is a 86-year-old male with a history of dementia who presented to the hospital yesterday with a several day history of worsening shortness of breath and dyspnea. The patient is here vacation from [place] where he is seen by multiple medical doctors including a tool and die inspector, sand molder and [employer] wms consultant. He has a known history of congestive heart failure and chronic atrial fibrillation. He recently had his diuretic decreased down to one tablet a day from q and since that time he has had perhaps worsened shortness of breath. He had also gained two pounds weight gain everyday for the last three days per his son-in-law. Upon admission, the patient had a Lawson catheter placed for strict intake and out take and was found to have approximately 400 in his bladder. He was started on aggressive diuresis when he was admitted. His urine was initially clear, however this morning, his urine became quite bloody but per the nurse the patient had been pulling on it quite frequently. The patient during this time was complaining of significant pain from the catheter especially at the tip of his penis. His catheter was subsequently removed at 3:30 earlier this afternoon. He has since voided at that time and had a PVR of only 132, however once he had voided, he does not have complete control of his bladder and his urine is grossly bloody was some clots. He states he usually does not have any problems urinating. He has a good stream and only gets up several times a night. However, since the catheter has been removed, he has had a very hard time controlling his bladder with symptom of leakage of urine as he gets a strong urge to go, but cannot make it to the urinal in time. He denies a history of hematuria in the past. Denies a history of kidney stones or urinary tract infections. He denies dysuria or frequency. He did not feel his bladder was full. He does feel like he emptying his bladder, but he is concerned about not being able to control his bladder. Denies abdominal pain, flank pain, nausea or vomiting. REVIEW OF SYSTEMS See HPI, otherwise all systems reviewed and were otherwise negative. PAST HISTORY Significant for: 1. Hypertension 2. Chronic atrial fibrillation 3. Hypothyroidism 4. Congestive heart failure 5. Chronic kidney disease 6. Dementia 7. Myelodysplastic syndrome 8. Macular degeneration 9. Hyperlipidemia PAST SURGICAL HISTORY 1. He has had a cardiac valve replacement 2. Bilateral cataract surgery 3. Bilateral hernia repair MEDICATIONS Include: 1. Trazodone 1. Metoprolol 2. Synthroid 3. Digoxin 4. Bumex 5. Alprazolam 6. Aspirin ALLERGIES NO KNOWN DRUG ALLERGIES. FAMILY HISTORY Father had kidney stones. No evidence of malignancies. SOCIAL HISTORY He denies any tobacco or illicit drug use. Does drink alcohol on occasion and is from [place]. PHYSICAL EXAMINATION VITAL SIGNS: Temperature 97.1, pulse 97, respiratory rate 24, BP 136/71, sating 95% on room air. GENERAL: He is alert and oriented x3 in no apparent distress, pleasant, cooperative gentleman who appears his stated age. HEAD: Normocephalic, atraumatic. NECK: Supple. Trachea is midline. No JVD. HEENT: Extraocular muscles intact. No scleral icterus and external nares are normal. LUNGS: Clear to auscultation bilaterally. No wheezes, rales or rhonchi. HEART: Irregularly irregular. No murmurs, gallops or rubs. ABDOMEN: Soft, nontender, nondistended. Positive bowel sounds. GENITOURINARY: No CVA tenderness bilaterally. His penis is circumcised. Testes are descended bilaterally, normal in size and consistency. He does have some blood at the meatus. His bladder is nonpalpable. EXTREMITIES: Nontender, 2+ edema. SKIN: No ulcers or rashes. Warm and moist. PSYCH: Normal affect. NEUROLOGIC: Cranial nerves II-XII intact. Strength 5/5 in all four extremities. He does ambulate. LABORATORY DATA White count 8.8, hemoglobin 8.3, hematocrit 24.5, platelet count 111. Sodium 139, potassium 4.1, chloride 102, bicarb 26.8, BUN 36, creatinine 1.60, calcium 8.4, glucose 108, C. Diff pending. ASSESSMENT AND PLAN The patient is an 86-year-old male admitted with CHF exacerbation with gross hematuria following catheter removal and possible urinary retention. Recommend conservative management at this time. The hematuria is likely from him pulling at the catheter. As long as he is adequately emptying his bladder and is not uncomfortable, would leave Lawson catheter out. Can use a [place] condom catheter if need to help prevent messes from happening on his bed as that is what the patient is ultimately concerned about. However if he does go into clot retention, he would need a three-way Lawson catheter placed and possibly start on continuous bladder irrigation. Hematuria is likely from him pulling at the catheter. We will start him on Flomax 0.4 mg daily. I instructed him on the proper use and possible side effects. Thank you for this consult. MD GAYLA Allen/JEFF /6:17 PM /8:46 AM
[2017-01-08 09:32] LABS: INTERNATIONAL NORMALIZED RATIO 1.3 RATIO; PROTHROMBIN TIME - PATIENT 14.4 SEC (9.8-11.6)
--- NOTE | 2017-01-08 11:14 | RADHPO ---
EXAM DATE/TIME: 01/08/2017 08:32 [facility] COMPARISON: No previous studies available for comparison. INDICATIONS : Abnormal labs. MEDICAL HISTORY : Hypothyroidism. Hypercholesterolemia. Congestive heart failure. Dementia. A-fib. Hypertension. Dyspne a. Anemia. Myelodysplastic syndrome. SURGICAL HISTORY : Tonsillectomy. Inguinal hernia repair. Valve replacement. ENCOUNTER: Initial ACUITY: 1 day PAIN SCORE: 2/10 LOCATION: Bilateral upper quadrant MEASUREMENTS: LIVER: 17.1 cm length COMMON DUCT: 5 mm RIGHT KIDNEY: 9.6 x 4.7 x 5.6 cm SPLEEN: 14.4 cm length FINDINGS: LIVER: Liver demonstrates normal echogenicity and is normal in size. There is a small amount of ascites. COMMON DUCT: Normal in caliber. GALLBLADDER: There is an isoechoic lesion in the gallbladder which appears adherent/associated with the gallbladde r wall measuring 1.2 x 0.5 x 0.6 cm. This demonstrates no significant internal vascularity. Gallbladd er wall is minimally prominent measuring up to 3 mm. This is regularly seen in patient's with abdomin al ascites. Minimal pericholecystic fluid is likely extension of ascites fluid. There is no sonograph ic Park's sign. PANCREAS: The visualized portions are within normal limits. RIGHT KIDNEY: No hydronephrosis, stone or mass. SPLEEN: Spleen is slightly enlarged measuring up to 14.4 cm. Ancillary: Incidental note of right pleural effusion. CONCLUSION: 1. Grossly normal-appearing liver by ultrasound examination. Mild splenomegaly. Small Amount of ascit es and right pleural effusion. Overall findings may reflect positive fluid balance in this patient wi th history of congestive heart failure. Congestive hepatopathy is in the differential diagnosis if pa arlynnt's liver enzymes are elevated. 2. 1.2 x 0.5 x 0.6 cm lesion in the gallbladder wall without significant internal vascularity. The di fferential considerations include adherent debris/sludge versus non-sessile gallbladder polyp. In gen eral, surgical consultation should be considered in patient's with polyps greater than 10 mm. Alterna tively followup examination may be performed, particularly if patient is a suboptimal surgical candid ate. Petey Vzaquez MD on January 08, 2017 at 10:55 Board Certified Radiologist. This report was verified electronically.
[2017-01-08 11:22] LABS: TRANSFERRIN IRON PROFILE 114 MG/DL (200-360)
[2017-01-08 11:37] LABS: FERRITIN 2102 NG/ML (26-388)
[2017-01-08 12:00] VITALS: BP 115/50; PULSE 86; RESP 20; TEMP 96.5; O2SAT 98
--- NOTE | 2017-01-08 14:44 | HHI.FF ---
Face to Face Verification Diagnosis: (1) Atrial fibrillation (2) Acute exacerbation of congestive heart failure (3) Congestive heart failure (4) Myelodysplastic syndrome (5) H/O heart valve replacement with bioprosthetic valve Physical Therapy Order: Evaluate and Treat Home Health Nursing Order: CHF education Nursing assessment with vital signs Instructions: Home health nursing for medication management. Home health nursing for CHF education. I have seen patient Gab Mancia on 01/08/17. My clinical findings support the need for the requested home health care services because: Deconditioned w/ increased weakness Med compliance is questionable I certify that my clinical findings support that this patient is homebound because: Unsafe to leave home unassisted Masoud Linn MD Jan 08, 2017 14:44
--- NOTE | 2017-01-08 15:25 | HHI.PR ---
Subjective Remarks Patient seen this morning around 10 AM. Says he is feeling better. Hematuria has improved. Urine now yellow. Patient continues with small liquid bowel movements. Denies any chest pain or shortness of breath. Discussed patient's case with daughter over the phone. She is planning on sending him to assisted living tomorrow where she will be staying with him full- time. We discussed the patient did not sleep too well last night, and that this is common in the hospital, and that it is an improvement from the somnolence on admission. We have gone down on his gabapentin which can build up in patients with renal failure. Daughter indicates that he shouldn't has a primary care doctor in the area, as well as Dr. Beverly and hematology who he will follow with. Daughter reports hemoglobin has been in the sixes in the past. Objective Vital Signs Date Time Temp Pulse Resp B/P Pulse Ox O2 Delivery O2 Flow Rate FiO2 01/08/17 12:00 96.5 86 20 115/50 98 01/08/17 08:00 97.0 87 24 115/58 94 01/08/17 04:00 96.0 76 16 96/55 98 01/08/17 00:00 96.4 84 16 100/56 97 01/07/17 20:00 96.8 98 16 109/62 96 01/07/17 20:00 98 I/O 01/07/17 01/07/17 01/07/17 01/08/17 01/08/17 01/08/17 07:00 15:00 23:00 07:00 15:00 23:00 Intake Total 550 ml 240 ml 250 ml 540 ml Output Total 1200 ml 500 ml 1350 ml 400 ml 650 ml Balance -650 ml -500 ml -1110 ml -150 ml -110 ml Intake Oral 200 ml 240 ml 250 ml 540 ml IV Total 350 ml Output Urine Total 1200 ml 500 ml 1350 ml 400 ml 650 ml Stool Total 0 ml Bladder Scan Volume Amount 132 ml # Voids 1 # Bowel Movements 1 2 Result Diagram: 01/08/17 0440 01/08/17 0440 Imaging Last Impressions Liver Ultrasound 01/08/17 0000 Signed Impressions: Service Date/Time: January 08:32 - CONCLUSION: 1. Grossly normal-appearing liver by ultrasound examination. Mild splenomegaly. Small Amount of ascites and right pleural effusion. Overall findings may reflect positive fluid balance in this patient with history of congestive heart failure. Congestive hepatopathy is in the differential diagnosis if patient's liver enzymes are elevated. 2. 1.2 x 0.5 x 0.6 cm lesion in the gallbladder wall without significant internal vascularity. The differential considerations include adherent debris/sludge versus non-sessile gallbladder polyp. In general , surgical consultation should be considered in patient's with polyps greater than 10 mm. Alternatively followup examination may be performed, particularly if patient is a suboptimal surgical candidate. Petey Vazquez MD Chest X-Ray 01/07/17 0000 Signed Impressions: Service Date/Time: Saturday, January 07, 2017 12:55 - CONCLUSION: Cardiomegaly with tiny bilateral pleural effusions and right lower lobe intraalveolar opacity likely related to pulmonary edema. Dominick Platt Jr., MD Lower Extremity Ultrasound 01/06/17 0000 Signed Impressions: Service Date/Time: Friday, January 06, 2017 16:50 - CONCLUSION: The study is negative for deep venous thrombosis bilateral lower extremities. Dominick Carnes MD Objective Remarks GENERAL: sitting up on edge of bed. Appears comfortable.. He is alert. SKIN: Warm and dry. HEAD: Normocephalic. EYES: No scleral icterus. No injection or drainage. NECK: Supple, trachea midline. No JVD. CARDIOVASCULAR: Regular rate and rhythm without murmurs, gallops, or rubs. RESPIRATORY: Breath sounds equal bilaterally. No accessory muscle use. No crackles. GASTROINTESTINAL: Abdomen soft, non-tender, nondistended. MUSCULOSKELETAL: No cyanosis, trace peripheral edema. BACK: Nontender without obvious deformity. No CVA tenderness. A/P Assessment and Plan =====01/08/17 //CHF. improved fluid overload. EF 20%. unknown baseline. We'll try to get outside records. We'll discuss with family. //Chronic diarrhea. C. difficile reviewed and negative. Discontinue precautions. Stool pathogens, as well as Giardia pending. //Hematuria appears improved. Discontinue condom catheter. Continue Flomax. Urology assistance appreciated. 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 As patient says he is feeling well, his fatigue was likely not from anemia. //Iron overload. Elevated ferritin. Likely from multiple blood transfusions. We'll hold off on blood pressure and fusion and loss of sleep necessary. Patient will follow-up with hematology as outpatient. //1.2 x 0.5 x 0.6 cm lesion in the gallbladder wall. Only to follow with PCP as outpatient. //Acute congestive heart failure, unknown diastolic versus systolic Likely secondary to reduction in patient's diuretic over the last week. Chest x-ray does show pleural effusion noted in the right costophrenic angle, cardiomegaly, bilateral lower extremity edema, elevated BNP Patient given Bumex 1 mg IV, will continue diuretic Insert Lawson for fluid monitoring, likely some component of outlet obstruction. Strict input and output Continue beta benji, evaluate for KAYA inhibitor use. -Trying Flomax for urinary retention. We'll evaluate a beta benji use. Fluid overload improving. Echocardiogram pending. //Lower extremity edema, right greater than left. This is relatively chronic. Ultrasound negative for DVT. //Chronic atrial fibrillation Obtain digoxin level Continue home medications Patient/family indicates that he has not anticoagulated secondary to myelodysplastic syndrome //Myelodysplastic syndrome Hemoglobin 7.6, platelet count 122 Initially considered to maintain hemoglobin greater than 8.0, however patient appears to be in better with diuresis, hemoglobin at same level as admission. -As patient already has what appears to be iron low overload, will conservatively manage anemia, transfuse if symptomatic. -Patient will follow-up with scruff worker, Dr. Beverly as outpatient //Hypothyroidism TSH 6.0. However this is in hospitalized setting. Resume replacement therapy -This will need to be rechecked as an outpatient. //Chronic kidney disease, unknown stage at this time -Possibly cardiorenal syndrome from fluid overload. CR 1.6 on admission. Improving with diuresis. Monitor. -Avoid nephrotoxins //BPH/urinary retention. Patient post void 380 MLS upon Lawson placement. -01/07. With significant pain. We'll remove Lawson. Try Flomax. -01/08. Pain resolved. Appears to be urinating without obstruction. Removed condom catheter. //Subacute diarrhea We'll order C. difficile of stool. Recent antibiotics for tooth infection several months ago. -Negative for C. difficile. Labs are still pending. -Follow up with primary care for this when discharge. //DVT prevention Sequential compression devices, avoid chemical prophylaxis secondary to myelodysplastic syndrome Discharge Planning Patient will be going to assisted living possibly tomorrow. Daughter will likely be staying with him. Masoud Linn MD Jan 08, 2017 15:25
[2017-01-08 16:00] VITALS: BP 114/61; PULSE 78; RESP 20; TEMP 96.2; O2SAT 96
[2017-01-08 20:00] VITALS: BP 121/87; PULSE 103; PULSE 90; RESP 16; TEMP 95.9; O2SAT 95
[2017-01-08] MEDS: ALPRAZolam 0.5 MG TAB PO PRN (22:26)
[2017-01-08] MEDS: METOPROLOL SUCCINATE 25 MG EXTENDED RELEASE TAB PO SCH (22:28)
[2017-01-09] VITALS: BP_SYST 101; BP_SYST 155; BP_DIAS 108; BP_DIAS 53; PULSE 88; RESP 16; TEMP 95.7; O2SAT 96
[2017-01-09 04:00] VITALS: BP 102/60; PULSE 86; RESP 16; TEMP 95.9; O2SAT 96
[2017-01-09] MEDS: LEVOTHYROXINE SODIUM 75 MCG TAB PO SCH (06:28)
[2017-01-09 07:10] LABS: AUTOMATED NEUTROPHIL # 3.3 TH/MM3 (1.8-7.7); BASOPHIL % 0.6 % (0.0-2.0); EOSINOPHIL # 0.1 TH/MM3 (0-0.4); EOSINOPHIL % 1.5 % (0.0-4.0); HEMATOCRIT 23.4 % (39.0-51.0); LYMPH % 14.9 % (9.0-44.0); LYMPHOCYTE # 0.8 TH/MM3 (1.0-4.8); MEAN CORPUSCULAR HEMOGLOBIN 33.8 PG (27.0-34.0); MEAN CORPUSCULAR HGB CONC 32.8 % (32.0-36.0); MONO % 16.7 % (0.0-8.0); NEUT % 66.3 % (16.0-70.0); PLATELET COUNT 108 TH/MM3 (150-450); RED BLOOD COUNT 2.27 MIL/MM3 (4.50-5.90); RED CELL DISTRIBUTION WIDTH 30.6 % (11.6-17.2); WHITE BLOOD COUNT 5.1 TH/MM3 (4.0-11.0)
[2017-01-09 07:12] LABS: POTASSIUM 3.6 MEQ/L (3.5-5.1)
[2017-01-09 07:15] LABS: HEMO FLAGS AUTO DIFF
[2017-01-09 07:16] LABS: BICARBONATE 27.1 MEQ/L (21.0-32.0); MAGNESIUM 2.6 MG/DL (1.5-2.5)
[2017-01-09 07:48] LABS: ACANTHOCYTES 1+ (NORMAL); KERATOCYTES OCC (NORMAL); OVALOCYTES 1+ (NORMAL); TEARDROP RBCS 1+ (NORMAL)
[2017-01-09 07:49] LABS: SCAN/DIFF AUTO DIFF CONFIRMED
[2017-01-09 08:00] VITALS: BP 102/60; PULSE 73; RESP 18; TEMP 97.4; O2SAT 94
[2017-01-09] MEDS: DIGOXIN 0.125 MG TAB PO SCH (08:04)
[2017-01-09] MEDS: BUMETANIDE 1 MG TAB PO SCH (08:04)
[2017-01-09] MEDS: TAMSULOSIN HCL 0.4 MG CAP PO SCH (08:05)
[2017-01-09] MEDS: GABAPENTIN 100 MG CAP PO SCH (08:05)
[2017-01-09] MEDS: FAMOTIDINE 20 MG TAB PO SCH (08:06)
[2017-01-09] MEDS: DONEPEZIL HCL 5 MG TAB PO SCH (08:06)
[2017-01-09] MEDS: SERTRALINE HCL 50 MG TAB PO SCH (08:07)
[2017-01-09] MEDS: DOCUSATE SODIUM 50 MG/SENNA 8.6 MG TAB PO SCH (08:07)
[2017-01-09] MEDS: SODIUM CHLORIDE 0.9% FLUSH 10 ML FLUSH IV FLUSH SCH (08:09)
[2017-01-09] MEDS ORDERED: GABA100C4 PO (09:14)
[2017-01-09] MEDS ORDERED: BUME1TAB PO (09:14)
[2017-01-09] MEDS ORDERED: TAMS5CAP PO (09:14)
--- NOTE | 2017-01-09 11:10 | HHI.PR ---
Subjective Remarks Patient seen this morning around 10 AM. Says he is feeling well. Denies any chest pain or shortness of breath. Denies any nausea or vomiting. Denies any dysuria or hematuria. Denies any diarrhea. Eating breakfast. Objective Vital Signs Date Time Temp Pulse Resp B/P Pulse Ox O2 Delivery O2 Flow Rate FiO2 01/09/17 08:00 97.4 73 18 102/60 94 01/09/17 04:00 95.9 86 16 102/60 96 01/09/17 00:00 95.7 88 16 101/53 96 01/08/17 20:00 95.9 90 16 121/87 95 01/08/17 20:00 103 01/08/17 16:00 96.2 78 20 114/61 96 01/08/17 12:00 96.5 86 20 115/50 98 I/O 01/08/17 01/08/17 01/08/17 01/09/17 01/09/17 01/09/17 07:00 15:00 23:00 07:00 15:00 23:00 Intake Total 250 ml 540 ml 240 ml Output Total 400 ml 650 ml 300 ml Balance -150 ml -110 ml -60 ml Intake Oral 250 ml 540 ml 240 ml Output Urine Total 400 ml 650 ml 300 ml Stool Total 0 ml # Voids 6 # Bowel Movements 2 1 Result Diagram: 01/09/1762601/09/17626 Objective Remarks GENERAL: sitting up on edge of bed eating breakfast. Appears comfortable.. He is alert to being in hospital, year, not to month. No change on exam. SKIN: Warm and dry. HEAD: Normocephalic. EYES: No scleral icterus. No injection or drainage. NECK: Supple, trachea midline. No JVD. CARDIOVASCULAR: Regular rate and rhythm without murmurs, gallops, or rubs. RESPIRATORY: Breath sounds equal bilaterally. No accessory muscle use. No crackles. GASTROINTESTINAL: Abdomen soft, non-tender, nondistended. MUSCULOSKELETAL: No cyanosis, trace peripheral edema. BACK: Nontender without obvious deformity. No CVA tenderness. A/P Assessment and Plan =====01/09/17 //CHF. improved fluid overload. EF 20%. Baseline ejection fraction around 30 % one month prior. Patient has refused AICD, catheterization in the past, and he is high risk for catheterization. Fluid restrictions. //Chronic diarrhea. Appears to be improved. Giardia antigen reviewed and negative. Stool pathogens pending. //Urinary obstruction Hematuria appears improved. I'll with urology as outpatient. Continue Flomax. //Chronic anemia secondary to myelodysplastic syndrome hemoglobin and 7.7 again today. Discussed with daughter yesterday. will follow-up with hematology as outpatient //Acute congestive heart failure, unknown diastolic versus systolic Likely secondary to reduction in patient's diuretic over the last week. Chest x-ray does show pleural effusion noted in the right costophrenic angle, cardiomegaly, bilateral lower extremity edema, elevated BNP Patient given Bumex 1 mg IV, will continue diuretic Insert Lawson for fluid monitoring, likely some component of outlet obstruction. Strict input and output Continue beta benji, evaluate for KAYA inhibitor use. -Trying Flomax for urinary retention. We'll evaluate a beta benji use. Fluid overload improved. Echocardiogram 20%. pt and family decline any invasive intervention. -avoid kaya due to kidney function, can be considered in future. //Lower extremity edema, right greater than left. This is relatively chronic. Ultrasound negative for DVT. //Chronic atrial fibrillation Obtain digoxin level Continue home medications Patient/family indicates that he is not anticoagulated secondary to myelodysplastic syndrome //Myelodysplastic syndrome Hemoglobin 7.6, platelet count 122 Initially considered to maintain hemoglobin greater than 8.0, however patient appears to be in better with diuresis, hemoglobin at same level as admission. -As patient already has what appears to be iron low overload, will conservatively manage anemia, transfuse if symptomatic. -Patient will follow-up with laborer livestock, Dr. Beverly as outpatient //Hypothyroidism TSH 6.0. However this is in hospitalized setting. Resume replacement therapy -This will need to be rechecked as an outpatient. //Chronic kidney disease, unknown stage at this time -Possibly cardiorenal syndrome from fluid overload. CR 1.6 on admission. Improving with diuresis. Monitor. -Avoid nephrotoxins //BPH/urinary retention. Patient post void 380 MLS upon Lawson placement. -/7. With significant pain. We'll remove Lawson. Try Flomax. -01/08. Pain resolved. Appears to be urinating without obstruction. Removed condom catheter. //Subacute diarrhea We'll order C. difficile of stool. Recent antibiotics for tooth infection several months ago. -Negative for C. difficile. Giardia negative. Labs are still pending. -Follow up with primary care for this when discharge. //Iron overload. Elevated ferritin. Likely from multiple blood transfusions. Hold off on blood transfusions. Patient will follow-up with hematology as outpatient. //1.2 x 0.5 x 0.6 cm lesion in the gallbladder wall. follow with PCP as outpatient. //DVT prevention Sequential compression devices, avoid chemical prophylaxis secondary to myelodysplastic syndrome Discharge Planning Patient will be going to assisted living today. Daughter will likely be staying with him. Masoud Linn MD Jan 09, 2017 11:10
--- NOTE | 2017-01-09 11:14 | HHI.DS ---
Discharge Summary Admission Date Jan 06, 2017 at 15:37 Discharge Date: Jan 09, 2017 Admitting Diagnosis chf, symptomatic anemia (1) Shortness of breath ICD Code: R06.02 Diagnosis: Principal (2) Orthopnea ICD Code: R06.01 Diagnosis: Principal (3) Acute exacerbation of congestive heart failure ICD Code: I50.9 Diagnosis: Principal (4) Myelodysplastic syndrome ICD Code: D46.9 Diagnosis: Secondary (5) Atrial fibrillation ICD Code: I48.91 Diagnosis: Secondary Procedures no invasive procedures. Please see echocardiogram report. Brief History - From Admission Written by Jeffrey Soni, acting as scribe for Dr. Linn on 01/06/17 at 16: 33. 86 year-old male with known history of chronic atrial fibrillation, congestive heart failure, myelodysplastic disorder, cardiac valve replacement, hypertension, dementia, hypothyroidism who presented to hospital because of worsening shortness of breath and dyspnea. 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 He traveled here for vacation with his daughter and son-in-law. And over last couple days he is been having worsening shortness of breath, dyspnea, unable to sleep at night, orthopnea. He does have intermittent chest discomfort which he states that with known on for a long time. He is followed by his regular doctors in [place]. And indicates that his medications were adjusted a week ago. He states that his diuretic was decreased down to only 1 tablet a day from 2 tablets a day because of possible underlying kidney abnormalities. Patient indicates that he is Short of Breath like This in the past Because of His Myelodysplastic Disorder When He Had Severe Anemia Requiring Transfusion. Patient indicates that the last time that that happened was a couple months ago and his hemoglobin was in the 6ish. Patient does indicate he does have chronic atrial fibrillation which he is not on any anticoagulation at this time due to his anemia, myelodysplastic disorder. He does have chronic right lower extremity edema in which he states is had workup done before to rule out any DVT. The son-in-law indicates that he is had a 2 pound weight gain every day for the last 3 days. The patient had workup done emergency department and found to have elevated BNP, pleural effusion and recommended admission for further evaluation management. CBC/BMP: 01/09/17 0627 01/09/17 0627 Significant Findings Laboratory Tests Test 01/06/17 01/06/17 01/07/17 01/07/17 14:10 15:04 04:43 17:30 Red Blood Count 2.20 MIL/MM3 2.40 MIL/MM3 (4.50-5.90) (4.50-5.90) Hemoglobin 7.6 GM/DL 8.3 GM/DL (13.0-17.0) (13.0-17.0) Hematocrit 23.4 % 24.5 % (39.0-51.0) (39.0-51.0) Mean Corpuscular Volume 106.3 FL 101.9 FL (80.0-100.0) (80.0-100.0) Mean Corpuscular Hemoglobin 34.8 PG 34.6 PG (27.0-34.0) (27.0-34.0) Red Cell Distribution Width 28.8 % 31.7 % (11.6-17.2) (11.6-17.2) Platelet Count 122 TH/MM3 111 TH/MM3 (150-450) (150-450) Neutrophils (%) (Auto) 71.7 % 77.9 % (16.0-70.0) (16.0-70.0) Monocytes (%) (Auto) 17.4 % 12.8 % (0.0-8.0) (0.0-8.0) Lymphocytes # (Auto) 0.6 TH/MM3 0.7 TH/MM3 (1.0-4.8) (1.0-4.8) Monocytes # (Auto) 1.1 TH/MM3 1.1 TH/MM3 (0-0.9) (0-0.9) Platelet Estimate LOW (NORMAL) Basophilic Stippling FAINT (NORMAL) Ovalocytes 1+ (NORMAL) 1+ (NORMAL) Prothrombin Time 14.9 SEC 15.2 SEC (9.8-11.6) (9.8-11.6) Blood Urea Nitrogen 40 MG/DL (7-18) 36 MG/DL (7-18) Creatinine 1.60 MG/DL 1.60 MG/DL (0.60-1.30) (0.60-1.30) Estimat Glomerular Filtration 41 ML/MIN (>89) 41 ML/MIN (>89) Rate Random Glucose 116 MG/DL 108 MG/DL (74-106) (74-106) Total Bilirubin 1.2 MG/DL 2.5 MG/DL (0.2-1.0) (0.2-1.0) Aspartate Amino Transf 41 U/L (15-37) (AST/SGOT) Alkaline Phosphatase 133 U/L 121 U/L (45-117) (45-117) B-Type Natriuretic Peptide 3017 PG/ML (0-100) Thyroid Stimulating Hormone 6.000 uIU/ML 3rd Gen (0.358-3.740) Lymphocytes (%) (Auto) 8.4 % (9.0-44.0) Calcium Level 8.4 MG/DL (8.5-10.1) Vitamin B12 Level GREATER THAN 2000 PG/ML (193-986) Test 01/08/17 01/08/17 01/08/17 01/09/17 04:40 09:15 14:54 06:27 Red Blood Count 2.29 MIL/MM3 2.27 MIL/MM3 (4.50-5.90) (4.50-5.90) Hemoglobin 7.7 GM/DL 8.2 GM/DL 7.7 GM/DL (13.0-17.0) (13.0-17.0) (13.0-17.0) Hematocrit 23.4 % 23.4 % (39.0-51.0) (39.0-51.0) Mean Corpuscular Volume 102.2 FL 103.0 FL (80.0-100.0) (80.0-100.0) Red Cell Distribution Width 31.6 % 30.6 % (11.6-17.2) (11.6-17.2) Platelet Count 110 TH/MM3 108 TH/MM3 (150-450) (150-450) Monocytes (%) (Auto) 16.5 % 16.7 % (0.0-8.0) (0.0-8.0) Lymphocytes # (Auto) 0.9 TH/MM3 0.8 TH/MM3 (1.0-4.8) (1.0-4.8) Target Cells 1+ (NORMAL) Ovalocytes 1+ (NORMAL) 1+ (NORMAL) Blood Urea Nitrogen 34 MG/DL (7-18) 34 MG/DL (7-18) Creatinine 1.50 MG/DL 1.40 MG/DL (0.60-1.30) (0.60-1.30) Estimat Glomerular Filtration 44 ML/MIN (>89) 48 ML/MIN (>89) Rate Magnesium Level 2.7 MG/DL 2.6 MG/DL (1.5-2.5) (1.5-2.5) Total Iron Binding Capacity 160 MCG/DL (250-450) Percent Iron Saturation GREATER THAN 50.0 % (20-50) Ferritin 2102 NG/ML (26-388) Total Bilirubin 1.1 MG/DL (0.2-1.0) Direct Bilirubin 0.5 MG/DL (0.0-0.2) Prothrombin Time 14.4 SEC (9.8-11.6) Tear Drop Cells 1+ (NORMAL) Acanthocytes 1+ (NORMAL) Calcium Level 8.4 MG/DL (8.5-10.1) Imaging Last Impressions Liver Ultrasound 01/08/17 0000 Signed Impressions: Service Date/Time: January 08:32 - CONCLUSION: 1. Grossly normal-appearing liver by ultrasound examination. Mild splenomegaly. Small Amount of ascites and right pleural effusion. Overall findings may reflect positive fluid balance in this patient with history of congestive heart failure. Congestive hepatopathy is in the differential diagnosis if patient's liver enzymes are elevated. 2. 1.2 x 0.5 x 0.6 cm lesion in the gallbladder wall without significant internal vascularity. The differential considerations include adherent debris/sludge versus non-sessile gallbladder polyp. In general , surgical consultation should be considered in patient's with polyps greater than 10 mm. Alternatively followup examination may be performed, particularly if patient is a suboptimal surgical candidate. Petey Vazquez MD Chest X-Ray 01/07/17 0000 Signed Impressions: Service Date/Time: Saturday, January 07, 2017 12:55 - CONCLUSION: Cardiomegaly with tiny bilateral pleural effusions and right lower lobe intraalveolar opacity likely related to pulmonary edema. Dominick Platt Jr., MD Lower Extremity Ultrasound 01/06/17 0000 Signed Impressions: Service Date/Time: Friday, January 06, 2017 16:50 - CONCLUSION: The study is negative for deep venous thrombosis bilateral lower extremities. Dominick Carnes MD Hospital Course Patient presented with fluid overload, improved with diuresis. Flomax helped with his urinary retention, gabapentin level was decreased secondary to suspected toxicity. Ejection fraction measured to be 20%, from baseline around 30%. Patient did not wish any invasive intervention, which is consistent with his previous wishes as per family. Patient was discharged home with diuretics, 2 L fluid restriction, instructions for daily weights. Follow up with cardiology. Regarding anemia. Hemoglobin in the sevens on admission, Patient was transfused on admission, initially with hemoglobin increased to 8.3, however downtrending to the sevens. Patient has follow-up with oncology as outpatient. Patient fatigue improved greatly with diuresis, decrease in gabapentin dosage , which is most likely the primary cause of his fatigue. He will follow-up with oncology as outpatient. creatinine and was 1.6, improved by discharge with diuresis.Lawson was placed on admission, however this continued secondary to discomfort. Patient did have some hematuria, which resolved spontaneously. He will follow up with urology as outpatient. for problem-based summary from most recent progress note, please see below. =====01/09/17 //CHF. improved fluid overload. EF 20%. Baseline ejection fraction around 30 % one month prior. Patient has refused AICD, catheterization in the past, and he is high risk for catheterization. Fluid restrictions. //Chronic diarrhea. Appears to be improved. Giardia antigen reviewed and negative. Stool pathogens pending. //Urinary obstruction Hematuria appears improved. I'll with urology as outpatient. Continue Flomax. //Chronic anemia secondary to myelodysplastic syndrome hemoglobin and 7.7 again today. Discussed with daughter yesterday. will follow-up with hematology as outpatient //Acute congestive heart failure, unknown diastolic versus systolic Likely secondary to reduction in patient's diuretic over the last week. Chest x-ray does show pleural effusion noted in the right costophrenic angle, cardiomegaly, bilateral lower extremity edema, elevated BNP Patient given Bumex 1 mg IV, will continue diuretic Insert Lawson for fluid monitoring, likely some component of outlet obstruction. Strict input and output Continue beta benji, evaluate for KAYA inhibitor use. -Trying Flomax for urinary retention. We'll evaluate a beta benji use. Fluid overload improved. Echocardiogram 20%. pt and family decline any invasive intervention. -avoid kaya due to kidney function, can be considered in future. //Lower extremity edema, right greater than left. This is relatively chronic. Ultrasound negative for DVT. //Chronic atrial fibrillation Obtain digoxin level Continue home medications Patient/family indicates that he is not anticoagulated secondary to myelodysplastic syndrome //Myelodysplastic syndrome Hemoglobin 7.6, platelet count 122 Initially considered to maintain hemoglobin greater than 8.0, however patient appears to be in better with diuresis, hemoglobin at same level as admission. -As patient already has what appears to be iron low overload, will conservatively manage anemia, transfuse if symptomatic. -Patient will follow-up with swift tender, Dr. Beverly as outpatient //Hypothyroidism TSH 6.0. However this is in hospitalized setting. Resume replacement therapy -This will need to be rechecked as an outpatient. //Chronic kidney disease, unknown stage at this time -Possibly cardiorenal syndrome from fluid overload. CR 1.6 on admission. Improving with diuresis. Monitor. -Avoid nephrotoxins //BPH/urinary retention. Patient post void 380 MLS upon Lawson placement. -01/07. With significant pain. We'll remove Lawson. Try Flomax. -01/08. Pain resolved. Appears to be urinating without obstruction. Removed condom catheter. //Subacute diarrhea We'll order C. difficile of stool. Recent antibiotics for tooth infection several months ago. -Negative for C. difficile. Giardia negative. Labs are still pending. -Follow up with primary care for this when discharge. //Iron overload. Elevated ferritin. Likely from multiple blood transfusions. Hold off on blood transfusions. Patient will follow-up with hematology as outpatient. //1.2 x 0.5 x 0.6 cm lesion in the gallbladder wall. follow with PCP as outpatient. //DVT prevention Sequential compression devices, avoid chemical prophylaxis secondary to myelodysplastic syndrome Discharge Planning Patient will be going to assisted living today. Daughter will likely be staying with him. Pt Condition on Discharge: Good Discharge Disposition: ACLF/NARAYAN Discharge Time: > 30 minutes Discharge Instructions DIET: Follow Instructions for: Heart Healthy Diet Fluid Restrictions: 2 Liters Activities you can perform: Regular-No Restrictions Follow up Referrals: Appointment for Follow Up with Mando Crow MD referral for palliative care. Cardiology - 1 Week Oncology - 1 Week with Charisse Beverly MD PCP Follow-up - 1 Week with Shanda [facility] Urology - 1 Week with Luis Antonio Rowe MD New Medications: Bumetanide (Bumetanide) 1 Mg Tab 1 MG PO DAILY@1600 #30 Ref 0 TAB Gabapentin (Gabapentin) 100 Mg Cap 100 MG PO BID Pain Management Days 30 CAP Tamsulosin (Flomax) 0.4 Mg Cap 0.4 MG PO DAILY help urine flow Days 30 CAP Continued Medications: Alprazolam (Alprazolam) 0.5 Mg Tab 0.5 MG PO HS PRN SLEEP Ref 0 TAB Aspirin (Aspirin) 81 Mg Chew 81 MG CHEW DAILY Ref 0 TAB Bumetanide (Bumetanide) 2 Mg Tab 2 MG PO DAILY Ref 0 TAB Digoxin (Digoxin) 0.125 Mg Tab 0.125 MG PO DAILY Regulate Heart Beat #30 Ref 0 TAB Donepezil (Donepezil) 10 Mg Tab 10 MG PO BID Dementia #30 Ref 0 TAB Famotidine (Famotidine) 20 Mg Tab 20 MG PO DAILY #60 Ref 0 TAB Levothyroxine (Levothyroxine) 75 Mcg Tab 75 MCG PO DAILY Thyroid #30 Ref 0 TAB Metoprolol Succinate ER 24 HR (Metoprolol Succinate ER 24 HR) 25 Mg Tab 12.5 MG PO HS #30 Ref 0 TAB Multiple Vitamins W/ Minerals (Prosight) 1 Tab Tab 1 TAB PO BID Multiple Vitamins W/ Minerals (Senior Tabs) 1 Tab Tab 1 TAB PO DAILY Sertraline (Sertraline) 50 Mg Tab 50 MG PO DAILY #30 Ref 0 TAB Discontinued Medications: Gabapentin (Gabapentin) 300 Mg Cap 300 MG PO TID #90 Ref 0 CAP Trazodone (Trazodone) 50 Mg Tab 100 MG PO HS Control Depression #30 Ref 0 TAB Masoud Linn MD Jan 09, 2017 11:14
[2017-01-26] MEDS ORDERED: TRAZ100T6 PO (11:06)
[2017-02-02] MEDS ORDERED: TAMS5CAP PO (13:59)
== END 2017-01-09 15:03 | DRG 292 ==
LOC: PHED 13:05 → PHEDA 15:37 → PH3A 16:36
PROVIDERS: ADMIT Internal Medicine; ATTEND Internal Medicine
PROC: 0T9B70Z Drainage of Bladder with Drainage Device, Via Natural or Artificial Opening (ICD-10-PCS; principal; 2017-01-06)
PROC: 30233N1 Transfusion of Nonautologous Red Blood Cells into Peripheral Vein, Percutaneous Approach (ICD-10-PCS; 2017-01-06)
DX: I13.0 Hypertensive heart and chronic kidney disease with heart failure and stage 1 through stage 4 chronic kidney disease, or unspecified chronic kidney disease (principal); T83.84XA Pain due to genitourinary prosthetic devices, implants and grafts, initial encounter; I48.2 Chronic atrial fibrillation; F03.90 Unspecified dementia, unspecified severity, without behavioral disturbance, psychotic disturbance, mood disturbance, and anxiety; D46.9 Myelodysplastic syndrome, unspecified; I50.9 Heart failure, unspecified; R31.0 Gross hematuria; N13.9 Obstructive and reflux uropathy, unspecified; N18.9 Chronic kidney disease, unspecified; E03.9 Hypothyroidism, unspecified; D63.8 Anemia in other chronic diseases classified elsewhere; Y84.6 Urinary catheterization as the cause of abnormal reaction of the patient, or of later complication, without mention of misadventure at the time of the procedure; H35.30 Unspecified macular degeneration; E78.00 Pure hypercholesterolemia, unspecified; Z95.2 Presence of prosthetic heart valve; Z79.82 Long term (current) use of aspirin; E78.5 Hyperlipidemia, unspecified; Z84.1 Family history of disorders of kidney and ureter; Z83.3 Family history of diabetes mellitus; K52.9 Noninfective gastroenteritis and colitis, unspecified
CPT/HCPCS: 36430; 71010; 76705; 80053; 80069; 80076; 80162; 82247; 82248; 82607; 82728; 83540; 83550; 83735; 83880; 84443; 85018; 85025; 85384; 85610; 85730; 86850; 86900; 86901; 86920; 87329; 87493; 93005; 93306; 93970; J1940; J7050; P9016

== ENCOUNTER 2017-01-26 12:15 | Emergency (ER) | payer MEDICARE, OTHER ==
[~2017-01-26] VITALS: Ht 165.1 cm; Wt 72.0 kg
[~2017-01-26 12:15] MED LIST changes: +BUME1TAB PO; +GABA100C4 PO; -GABA300C5 PO; -POTA-245 PO; +PROSTAB PO; +SENITAB2 PO; +TAMS5CAP PO; +TRAZ100T6 PO; -TRAZ50TA12 PO
[2017-01-26 12:17] VITALS: BP 121/59; PULSE 94; RESP 20; TEMP 97.5; O2SAT 98
--- NOTE | 2017-01-26 12:44 | PD ---
Physical Exam Time Seen by Provider: 12:42 Narrative 86yo M c/o SOB x 1 week w/ worsening. Sent by TREVOR Barron; seen at office this morning. Blood transfusion or Thursday. Hx CHF. Daughter reports his "belly is filling up." Patient seen in triage. Awaiting bed placement. VS reviewed. Data Data Last Documented VS Vital Signs Date Time Temp Pulse Resp B/P Pulse Ox O2 Delivery O2 Flow Rate FiO2 01/26/17 12:17 97.5 94 20 121/59 98 Room Air MDM Supervised Visit with MIMI: Portia Diaz Jan 26, 2017 12:44
--- NOTE | 2017-01-26 13:43 | RADRPT ---
EXAM DATE/TIME: 01/26/2017 13:16 [facility] COMPARISON: CHEST SINGLE AP, January 07, 2017, 12:55. INDICATIONS : Shortness of breath and cough. MEDICAL HISTORY : Hypertension. Congestive heart failure. Afib. SURGICAL HISTORY : Valve repair. ENCOUNTER: Initial ACUITY: 1 week PAIN SCORE: 0/10 LOCATION: Bilateral chest FINDINGS: Median sternotomy wires with surgical features of prior cardiac valve replacement. Mild diffuse inter stitial prominence. Mild posterior bilateral lower lobe airspace disease. Cardiac silhouette is enlar ged. Remainder of the exam is unchanged. CONCLUSION: 1. Mild bilateral posterior lower lobe airspace disease which may reflect atelectasis although differ ential considerations include aspiration and pneumonia. 2. Cardiomegaly with mild positive fluid balance. Petey Vazquez MD on January 26, 2017 at 13:38 Board Certified Radiologist. This report was verified electronically.
[2017-01-26 14:27] VITALS: BP 143/75; PULSE 98; RESP 16; O2SAT 99
[2017-01-26] MEDS ORDERED: SODIUM CHLORIDE 0.9% FLUSH 10 ML FLUSH IVF PRN (14:45)
--- NOTE | 2017-01-26 14:47 | PD ---
HPI Chief Complaint: Respiratory Distress Time Seen by Provider: 14:47 Travel History International Travel<30 days: No Contact w/Intl Traveler<30days: No Traveled to known affect area: No History of Present Illness HPI 86-year-old male with a history of atrial fibrillation, congestive heart failure , hyperlipidemia, hypertension, valve replacement and repair, myelodysplastic syndrome, dementia presents to the emergency department for evaluation of worsening orthopnea over the past 3 days. Patient is accompanied by his daughter who provides much of the history due to the patient's dementia and poor memory. The patient's daughter states that the patient has been unable to sleep since Thursday night due to shortness of breath at night. States that he also had abdominal distention over the past several days as well. He has swelling in his lower legs but states this is stable and unchanged. States he has had a dry nonproductive cough over the past 2-3 days. Denies any fever, chills, nausea, vomiting, abdominal pain, diarrhea, constipation. No other complaints. PFSH Past Medical History Hx Anticoagulant Therapy: Yes (ASA 81 MG DAILY) Anemia: Yes Atrial Fibrillation: Yes Heart Rhythm Problems: Yes (AFIB) Cancer: No Cardiovascular Problems: Yes (CHF) High Cholesterol: Yes Congestive Heart Failure: Yes Dementia: Yes Endocrine: Yes Genitourinary: Yes Hypertension: Yes Immune Disorder: No Musculoskeletal: No Neurologic: No Psychiatric: No Reproductive: No Respiratory: Yes Immunizations Current: Yes Thyroid Disease: Yes (HYPO) Influenza Vaccination: Yes Past Surgical History Cardiac Surgery: Yes (1 VALVE REPLACEMENT, 1 VALVE REPAIR 3 yrs ago) Eye Surgery: Yes (BILATERAL CATARACTS REMOVED) Tonsillectomy: Yes Other Surgery: Yes (BILATERAL INGUINAL HERNIA REPAIR) Social History Alcohol Use: Yes (RARE) Tobacco Use: No (NEVER) Substance Use: No Allergies-Medications (Allergen,Severity, Reaction): Coded Allergies: No Known Allergies (Unverified , 01/26/17) Reported Meds & Prescriptions Reported Meds & Active Scripts Active Zithromax (Azithromycin) 500 Mg Tab 500 Mg PO DAILY 5 Days Flomax (Tamsulosin HCl) 0.4 Mg Cap 0.4 Mg PO DAILY 30 Days Bumetanide 1 Mg Tab 1 Mg PO DAILY@1600 Reported Klor-Con M20 (Potassium Chloride Microencaps) 20 Meq Tab 20 Meq PO DAILY Gabapentin 300 Mg Cap 300 Mg PO BID Tamsulosin (Tamsulosin HCl) 0.4 Mg Cap 0.4 Mg PO DAILY@1600 Preservision Areds (Multiple Vitamins W/ Minerals) 1 Tab 1 Tab PO BID Trazodone (Trazodone HCl) 100 Mg Tablet 100 Mg PO HS Senior Tabs (Multiple Vitamins W/ Minerals) 1 Tab Tab 1 Tab PO DAILY Sertraline (Sertraline HCl) 50 Mg Tab 50 Mg PO DAILY Metoprolol Succinate ER 24 HR (Metoprolol Succinate) 25 Mg Tab 12.5 Mg PO HS Levothyroxine (Levothyroxine Sodium) 75 Mcg Tab 75 Mcg PO DAILY Famotidine 20 Mg Tab 20 Mg PO DAILY Donepezil 10 Mg Tab 10 Mg PO BID Digoxin 0.125 Mg Tab 0.125 Mg PO DAILY Bumetanide 2 Mg Tab 2 Mg PO DAILY Aspirin 81 Mg Chew 81 Mg CHEW DAILY Alprazolam 0.5 Mg Tab 0.5 Mg PO HS PRN Review of Systems Except as stated in HPI: all other systems reviewed are Neg Physical Exam Narrative GENERAL: Well-nourished and well-developed pleasant male patient in no acute distress who is nontoxic appearing. SKIN: Warm and dry. HEAD: Normocephalic and atraumatic. EYES: No injection, drainage, or hyphema noted. PERRLA. EOMI. ENT: No nasal drainage noted. Oropharynx is clear. NECK: Supple and the trachea is midline. CARDIOVASCULAR: Regular rate and rhythm. RESPIRATORY: Breath sounds decreased in bilateral bases. No accessory muscle use, wheezing, rhonchi, or crackles. GASTROINTESTINAL: Abdomen is mildly distended however soft and nontender. No rebound tenderness or guarding. No peritoneal signs. MUSCULOSKELETAL: Mild bilateral ankle edema. No obvious deformities, cyanosis, or ecchymosis is present throughout the upper and lower extremities. Patient has full range of motion without any signs of neurovascular compromise. NEUROLOGICAL: Awake, alert, and oriented. Normal speech and gait. Cranial nerves are grossly intact. Data Data Last Documented VS Vital Signs Date Time Temp Pulse Resp B/P Pulse Ox O2 Delivery O2 Flow Rate FiO2 01/26/17 17:04 76 16 138/65 99 Room Air 01/26/17 12:17 97.5 Orders Chest, Pa & Lat (01/26/17 ) Electrocardiogram (01/26/17 ) Complete Blood Count With Diff (01/26/17 14:43) Comprehensive Metabolic Panel (01/26/17 14:43) B-Type Natriuretic Peptide (01/26/17 14:43) Act Partial Throm Time (Ptt) (01/26/17 14:43) Prothrombin Time / Inr (Pt) (01/26/17 14:43) Ckmb (Isoenzyme) Profile (01/26/17 14:43) Troponin I (01/26/17 14:43) Iv Access Insert/Monitor (01/26/17 14:43) Ecg Monitoring (01/26/17 14:43) Oximetry (01/26/17 14:43) Sodium Chloride 0.9% Flush (Ns Flush) (01/26/17 14:45) Furosemide Inj (Lasix Inj) (01/26/17 16:30) Ct Abd/Pel W/O Iv Contrast (01/26/17 16:26) Labs Laboratory Tests Test 01/26/17 15:05 White Blood Count 5.8 TH/MM3 Red Blood Count 2.49 MIL/MM3 Hemoglobin 8.7 GM/DL Hematocrit 25.8 % Mean Corpuscular Volume 103.4 FL Mean Corpuscular Hemoglobin 35.1 PG Mean Corpuscular Hemoglobin 33.9 % Concent Red Cell Distribution Width 31.5 % Platelet Count 90 TH/MM3 Mean Platelet Volume 9.8 FL Neutrophils (%) (Auto) 73.5 % Lymphocytes (%) (Auto) 10.1 % Monocytes (%) (Auto) 13.7 % Eosinophils (%) (Auto) 1.4 % Basophils (%) (Auto) 1.3 % Neutrophils # (Auto) 4.3 TH/MM3 Lymphocytes # (Auto) 0.6 TH/MM3 Monocytes # (Auto) 0.8 TH/MM3 Eosinophils # (Auto) 0.1 TH/MM3 Basophils # (Auto) 0.1 TH/MM3 CBC Comment AUTO DIFF Differential Comment AUTO DIFF CONFIRMED Platelet Estimate LOW Platelet Morphology Comment NORMAL Ovalocytes 1+ Keratocytes OCC Prothrombin Time 14.0 SEC Prothromb Time International 1.3 RATIO Ratio Activated Partial 30.4 SEC Thromboplast Time Sodium Level 136 MEQ/L Potassium Level 4.8 MEQ/L Chloride Level 102 MEQ/L Carbon Dioxide Level 25.1 MEQ/L Anion Gap 9 MEQ/L Blood Urea Nitrogen 29 MG/DL Creatinine 1.55 MG/DL Estimat Glomerular Filtration 43 ML/MIN Rate Random Glucose 138 MG/DL Calcium Level 9.0 MG/DL Total Bilirubin 0.8 MG/DL Aspartate Amino Transf 25 U/L (AST/SGOT) Alanine Aminotransferase 24 U/L (ALT/SGPT) Alkaline Phosphatase 114 U/L Total Creatine Kinase 59 U/L Troponin I 0.05 NG/ML B-Type Natriuretic Peptide 1757 PG/ML Total Protein 7.2 GM/DL Albumin 3.7 GM/DL MDM Medical Decision Making Medical Screen Exam Complete: Yes Emergency Medical Condition: Yes Differential Diagnosis CHF exacerbation versus pneumonia versus dehydration versus electrolyte abnormality Narrative Course 86-year-old male with history of heart failure presents to the emergency department for evaluation of worsening shortness of breath at night when sleeping. Patient is afebrile, vital signs are stable. On physical examination his abdomen is distended and he has some bilateral lower extremity edema. Breath sounds are decreased at bases. EKG shows atrial fibrillation with a ventricular rate of 80 bpm, elevations or depressions. IV access is obtained, labs of been drawn and sent. Patient was placed on cardiac telemetry and pulse oximetry monitoring. Chest x-ray shows bilateral lower lobe airspace disease which may reflect atelectasis although differential considerations include aspiration or pneumonia. There is a mild positive fluid balance. CBC shows anemia with a hemoglobin of 8.7, hematocrit 25.8. This appears about at the patient's baseline. CMP shows renal insufficiency with a creatinine of 1.55, BUN 29, GFR 43. This is at the patient's baseline. Troponin is 0.05. BNP is 1757. Coags are unremarkable. CT of the abdomen and pelvis without contrast shows small shrunken liver with trace ascites and moderate intra-abdominal fat. There is no mass identified on this noncontrast head CT. Discussed all findings with the patient and his daughter. He has remained stable and without complaint while here in the emergency department. The patient's labs show he has heart failure however I don't believe this is acute heart failure. He is given a dose of Lasix 40 mg IV and is instructed to take his diuretics at home as prescribed. He'll be discharged with Zithromax for potential pneumonia noted on chest x-ray and the cough he has been experiencing over the last several days. I discussed the case with my attending physician Dr. Newell who also evaluated the patient and is in agreement with this plan. Patient is stable for discharge to home. Diagnosis Primary Impression: Congestive heart failure Qualified Code: I50.9 - Chronic congestive heart failure, unspecified congestive heart failure type Additional Impressions: Distended abdomen Pneumonia Qualified Code: J18.9 - Pneumonia of both lower lobes due to infectious organism Referrals: Primary Care Physician Patient Instructions: General Instructions Additional Instructions: Take your diuretic as prescribed by your doctor. Follow-up with your Primary Care Physician. Return to the ED for any acute worsening of symptoms. Med/Other Pt SpecificInfo: Prescription(s) given Scripts Azithromycin (Zithromax)500 Mg [id number] Mg PO DAILY 5 Days Ref 0 Prov:Vanessa Newell DO 01/26/17 Disposition: 01 DISCHARGE HOME Condition: Stable Portia Marlow Jan 26, 2017 14:47
[2017-01-26] MEDS ORDERED: TAMS0.4C4 PO (14:57)
[2017-01-26] MEDS ORDERED: OCUVTAB4 PO (14:57)
[2017-01-26] MEDS ORDERED: GABA300C5 PO (14:59)
[2017-01-26] MEDS ORDERED: POTA-245 PO (15:00)
[2017-01-26 15:30] LABS: APTT (PATIENT) 30.4 SEC (24.3-30.1); INTERNATIONAL NORMALIZED RATIO 1.3 RATIO
[2017-01-26 15:33] LABS: AUTOMATED NEUTROPHIL # 4.3 TH/MM3 (1.8-7.7); BASOPHIL # 0.1 TH/MM3 (0-0.2); BASOPHIL % 1.3 % (0.0-2.0); EOSINOPHIL # 0.1 TH/MM3 (0-0.4); EOSINOPHIL % 1.4 % (0.0-4.0); HEMATOCRIT 25.8 % (39.0-51.0); HEMO FLAGS AUTO DIFF; LYMPH % 10.1 % (9.0-44.0); LYMPHOCYTE # 0.6 TH/MM3 (1.0-4.8); MEAN CELL VOLUME 103.4 FL (80.0-100.0); MEAN CORPUSCULAR HEMOGLOBIN 35.1 PG (27.0-34.0); MEAN CORPUSCULAR HGB CONC 33.9 % (32.0-36.0); MONO % 13.7 % (0.0-8.0); NEUT % 73.5 % (16.0-70.0); PLATELET COUNT 90 TH/MM3 (150-450); RED BLOOD COUNT 2.49 MIL/MM3 (4.50-5.90); RED CELL DISTRIBUTION WIDTH 31.5 % (11.6-17.2); WHITE BLOOD COUNT 5.8 TH/MM3 (4.0-11.0)
[2017-01-26 16:00] LABS: ALKALINE PHOSPHATASE 114 U/L (45-117); ALT (GPT) 24 U/L (12-78); ANION GAP 9 MEQ/L (5-15); AST (GOT) 25 U/L (15-37); BICARBONATE 25.1 MEQ/L (21.0-32.0); BLOOD UREA NITROGEN 29 MG/DL (7-18); CHLORIDE 102 MEQ/L (98-107); GLOMERULAR FILTRATION RATE 43 ML/MIN (>89); POTASSIUM 4.8 MEQ/L (3.5-5.1); SODIUM (NA) 136 MEQ/L (136-145); TOTAL BILIRUBIN ADULT 0.8 MG/DL (0.2-1.0)
[2017-01-26 16:05] LABS: CREATINE KINASE 59 U/L (39-308)
[2017-01-26 16:12] LABS: KERATOCYTES OCC (NORMAL); OVALOCYTES 1+ (NORMAL); PLATELET ESTIMATE SMEAR LOW (NORMAL); PLATELET MORPHOLOGY NORMAL (NORMAL); SCAN/DIFF AUTO DIFF CONFIRMED
[2017-01-26] MEDS ORDERED: FUROSEMIDE 40 MG/4 ML VIAL IV PUSH ONE (16:30)
[2017-01-26 17:04] VITALS: BP 138/65; PULSE 76; RESP 16; O2SAT 99
--- NOTE | 2017-01-26 17:19 | RADRPT ---
EXAM DATE/TIME: 01/26/2017 16:46 [facility] COMPARISON: No previous studies available for comparison. INDICATIONS : Abdominal pain and distention for three months. ORAL CONTRAST: No oral contrast ingested. RADIATION DOSE: 14.27 CTDIvol (mGy) MEDICAL HISTORY : Hypothyroidism. Congestive heart failure. SURGICAL HISTORY : None. ENCOUNTER: Initial ACUITY: 3 months PAIN SCALE: 5/10 LOCATION: Bilateral abdomen TECHNIQUE: Volumetric scanning of the abdomen and pelvis was performed. Using automated exposure control and ad justment of the mA and/or kV according to patient size, radiation dose was kept as low as reasonably achievable to obtain optimal diagnostic quality images. DICOM format image data is available electro nically for review and comparison. FINDINGS: Small right pleural effusion is evident. There is biventricular cardiomegaly and mitral valve prosth esis evident. Trace ascites is evident. The liver is small. The spleen is prominent. The pancreas and adrenals a re unremarkable. Small gallstones are noted. The kidneys are small without hydronephrosis. Multiple diverticuli are present in the sigmoid colon without diverticulitis. Abundant abdominal fat is noted There is an inguinal hernia on the left containing only fat Moderate vascular calcifications are noted Extensive degenerative changes are present in the thoracolumbar spine. CONCLUSION: Small shrunken liver with trace ascites and moderate intra-abdominal fat. There is n o mass identified on this noncontrast CT Terry Carrero MD FACR on January 26, 2017 at 17:14 Board Certified Radiologist. This report was verified electronically.
[2017-01-26] MEDS ORDERED: ZITH500T PO (17:37)
--- NOTE | 2017-01-27 17:23 | EKG ---
Date Performed: 01/26/2017 Time Performed: 14:35:47 PTAGE: 86 years EKG: ATRIAL FIBRILLATION BORDERLINE LEFT AXIS DEVIATION POSSIBLE RIGHT VENTRICULAR CONDUCTION DE LAY NONSPECIFIC ST & T-WAVE ABNORMALITY ABNORMAL RHYTHM ECG PREVIOUS TRACING : 01/06/2017 16.15 Compared to prior tracing no significant change DOCTOR: Moreno Najera Interpretating Date/Time 01/27/2017 17:21:21
[2017-02-02] MEDS ORDERED: TAMS5CAP PO (13:59)
== END 2017-01-26 18:23 | disposition home or self-care (01) ==
LOC: NEPE 12:15
DX: I50.9 Heart failure, unspecified (principal); J18.9 Pneumonia, unspecified organism; D64.9 Anemia, unspecified; N28.9 Disorder of kidney and ureter, unspecified; E78.5 Hyperlipidemia, unspecified; I10 Essential (primary) hypertension; D46.9 Myelodysplastic syndrome, unspecified; F03.90 Unspecified dementia, unspecified severity, without behavioral disturbance, psychotic disturbance, mood disturbance, and anxiety; I48.91 Unspecified atrial fibrillation
CPT/HCPCS: 71020; 74176; 80053; 82550; 83880; 84484; 85025; 85610; 85730; 93005; 96374; 99285; J1940

== ENCOUNTER → 2017-04-08 | Outpatient (CLI) | payer MEDICARE, OTHER ==
[~2017-04-08] MED LIST changes: +ALBUAER3 INH; +ATOR40TA16 PO; -BUME2TAB PO; -DONE10TA7 PO; +FINA5TAB2 PO; +FLUT1SPR5 EACH NARE; -GABA100C4 PO; +OCUVTAB4 PO; -PROSTAB PO; +SACU1TAB PO; +SPIR25 PO; +TAMS0.4C4 PO; +TORS1TAB12 PO; +TRAZ50TA12 PO; +TRIAM.1%T TOPICAL
[2017-04-08 12:19] LABS: AUTOMATED NEUTROPHIL # 3.2 TH/MM3 (1.8-7.7); BASOPHIL # 0.1 TH/MM3 (0-0.2); BASOPHIL % 1.9 % (0.0-2.0); EOSINOPHIL # 0.1 TH/MM3 (0-0.4); EOSINOPHIL % 1.6 % (0.0-4.0); HEMATOCRIT 25.9 % (39.0-51.0); LYMPH % 13.6 % (9.0-44.0); LYMPHOCYTE # 0.6 TH/MM3 (1.0-4.8); MEAN CELL VOLUME 101.9 FL (80.0-100.0); MEAN CORPUSCULAR HEMOGLOBIN 32.6 PG (27.0-34.0); MONO % 14.7 % (0.0-8.0); NEUT % 68.2 % (16.0-70.0); PLATELET COUNT 53 TH/MM3 (150-450); RED BLOOD COUNT 2.54 MIL/MM3 (4.50-5.90); WHITE BLOOD COUNT 4.7 TH/MM3 (4.0-11.0)
[2017-04-08 12:20] LABS: HEMO FLAGS AUTO DIFF
[2017-04-08 12:27] LABS: PLATELET ESTIMATE SMEAR LOW (NORMAL); PLATELET MORPHOLOGY NORMAL (NORMAL); SCAN/DIFF AUTO DIFF CONFIRMED
[2017-04-08 13:47] LABS: BLOOD, URINE NEG (NEG); GLUCOSE,URINE NEG (NEG); HYALINE CAST, URINE 4 /lpf (RARE); KETONE, URINE NEG (NEG); NITRITE,URINE NEG (NEG); URINE COLOR LIGHT-YELLOW (YELLW/STRAW)
[2017-04-08 14:23] LABS: DIGOXIN 1.2 NG/ML (0.8-2.0)
== END ==
LOC: OLAB 12:00
PROVIDERS: ATTEND Nurse Practitioner Family
DX: Z00.00 Encounter for general adult medical examination without abnormal findings (principal)
CPT/HCPCS: 36415; 80162; 81001; 82306; 82570; 83970; 84156; 85025; 86160; 86162; 86803

== ENCOUNTER → 2017-04-21 | Outpatient (CLI) | payer MEDICARE, OTHER ==
[~2017-04-21] MED LIST changes: -TAMS5CAP PO; -TRAZ100T6 PO
[2017-04-21 10:12] LABS: HEMATOCRIT 24.1 % (39.0-51.0); MEAN CELL VOLUME 101.1 FL (80.0-100.0); MEAN CORPUSCULAR HEMOGLOBIN 34.1 PG (27.0-34.0); MEAN CORPUSCULAR HGB CONC 33.7 % (32.0-36.0); PLATELET COUNT 88 TH/MM3 (150-450); RED BLOOD COUNT 2.39 MIL/MM3 (4.50-5.90); RED CELL DISTRIBUTION WIDTH 29.6 % (11.6-17.2); WHITE BLOOD COUNT 7.7 TH/MM3 (4.0-11.0)
[2017-04-21 10:17] LABS: REVIEW FLAG FINAL
[2017-04-21 12:52] LABS: ALT (GPT) 19 U/L (12-78); ANION GAP 9 MEQ/L (5-15); AST (GOT) 16 U/L (15-37); BICARBONATE 23.9 MEQ/L (21.0-32.0); BLOOD UREA NITROGEN 34 MG/DL (7-18); CHLORIDE 104 MEQ/L (98-107); GLOMERULAR FILTRATION RATE 33 ML/MIN (>89); GLUCOSE,FASTING 107 MG/DL (74-99); POTASSIUM 4.3 MEQ/L (3.5-5.1); SODIUM (NA) 137 MEQ/L (136-145)
[2017-04-21 12:55] LABS: ALKALINE PHOSPHATASE 88 U/L (45-117)
== END ==
LOC: OLAB 09:51
PROVIDERS: ATTEND Nurse Practitioner Family
DX: R06.02 Shortness of breath (principal); D64.9 Anemia, unspecified; I50.22 Chronic systolic (congestive) heart failure
CPT/HCPCS: 36415; 80053; 85027

== ENCOUNTER 2017-05-13 12:38 | Inpatient (IN) | payer MEDICARE, OTHER ==
[~2017-05-13] VITALS: Ht 165.1 cm; Wt 71.6 kg
[2017-05-13] VITALS (14 sets, daily range): BP systolic 91–137; BP diastolic 55–69; PULSE 52–136; RESP 16–21; TEMP 97.4–98.5; O2SAT 95–100
[~2017-05-13 12:38] MED LIST changes: -ALBUAER3 INH; -ATOR40TA16 PO; -SPIR25 PO; -TORS1TAB12 PO
[2017-05-13] MEDS ORDERED: SODIUM CHLOR 0.9% 1000 ML INJ 1,000 ML IV ONE (13:00)
[2017-05-13] MEDS ORDERED: SODIUM CHLORIDE 0.9% FLUSH 10 ML FLUSH IVF PRN (13:00)
--- NOTE | 2017-05-13 13:09 | PD ---
HPI Chief Complaint: Chest Pain Time Seen by Provider: 12:51 Travel History International Travel<30 days: No Contact w/Intl Traveler<30days: No Traveled to known affect area: No History of Present Illness HPI 86-year-old male with PMH of A. fib, CHF, HTN, hypothyroidism, bovine valve replacement, myelodysplastic syndrome presents to the ED for evaluation of 1 week history of increasing shortness of breath and burning chest pain. Worsened on exertion. Patient also complains of decreased appetite over the last few days. He denies fevers, chills, palpitations, cough, nausea, vomiting. He endorses chronic loose stools, no worse today. Denies melena, hematochezia , BRBPR. The patient went to see his primary care provider today, EKG there showed A. fib with RVR. The patient was encouraged to come to the ED. He refused and decided to go have lab work drawn. After being called back with the result that his hemoglobin was 6.2 he decided to present to the ED. The patient's daughter is at bedside and helps to provide the history. He is followed by Dr. Crooks, cardiology and Dr. Mcgraw, heme/onc. [facility] Past Medical History Hx Anticoagulant Therapy: Yes (ASA 81 MG DAILY) Anemia: Yes Atrial Fibrillation: Yes Heart Rhythm Problems: Yes (AFIB) Cancer: No Cardiovascular Problems: Yes (CHF) High Cholesterol: Yes Congestive Heart Failure: Yes Dementia: Yes Endocrine: Yes Genitourinary: Yes Hypertension: Yes Immune Disorder: No Musculoskeletal: No Neurologic: No Psychiatric: No Reproductive: No Respiratory: Yes Immunizations Current: Yes Thyroid Disease: Yes (HYPO) Past Surgical History Cardiac Surgery: Yes (1 VALVE REPLACEMENT, 1 VALVE REPAIR 3 yrs ago) Eye Surgery: Yes (BILATERAL CATARACTS REMOVED) Tonsillectomy: Yes Other Surgery: Yes (BILATERAL INGUINAL HERNIA REPAIR) Social History Alcohol Use: Yes (RARE) Tobacco Use: No (NEVER) Substance Use: No Allergies-Medications (Allergen,Severity, Reaction): Coded Allergies: No Known Allergies (Unverified , 05/13/17) Reported Meds & Prescriptions Reported Meds & Active Scripts Active Tamsulosin (Tamsulosin HCl) 0.4 Mg Cap 0.4 Mg PO HS Flonase Nasal [place] (Fluticasone Nasal [place]) 50 Mcg/Act [place] 50 Mcg EACH NARE BID Entresto (Sacubitril-Valsartan) 24-26 Mg Tab 1 Tab PO BID Sertraline (Sertraline HCl) 50 Mg Tab 50 Mg PO DAILY Metoprolol Succinate ER 24 HR (Metoprolol Succinate) 25 Mg Tab 12.5 Mg PO HS Famotidine 20 Mg Tab 20 Mg PO DAILY Digoxin 0.125 Mg Tab 0.125 Mg PO DAILY Bumetanide 1 Mg Tab 1 Mg PO DAILY Triamcinolone Topical (Triamcinolone Acetonide) 0.1 % Oint 1 Applic TOPICAL BID Levothyroxine (Levothyroxine Sodium) 75 Mcg Tab 75 Mcg PO DAILY Reported Finasteride 5 Mg Tab 5 Mg PO DAILY Do not crush. Preservision Areds (Multiple Vitamins W/ Minerals) 1 Tab 1 Tab PO BID Senior Tabs (Multiple Vitamins W/ Minerals) 1 Tab Tab 1 Tab PO DAILY Aspirin 81 Mg Chew 81 Mg CHEW DAILY Alprazolam 0.5 Mg Tab 0.5 Mg PO HS PRN Review of Systems Except as stated in HPI: all other systems reviewed are Neg Physical Exam Narrative GENERAL: Well-nourished, well-developed thin, pleasant white male in no acute distress.. SKIN: Focused skin assessment warm/dry. HEAD: Normocephalic. EYES: No scleral icterus. No injection or drainage. NECK: Supple, trachea midline. No JVD or lymphadenopathy. CARDIOVASCULAR: Irregularly irregular rate without appreciable M/R/G. RESPIRATORY: Breath sounds clear and equal bilaterally. No accessory muscle use. GASTROINTESTINAL: Abdomen soft, non-tender, nondistended. Active bowel sounds. RECTAL EXAM: No masses or tenderness, stool is brown. Guaiac negative. MUSCULOSKELETAL: No cyanosis, or edema. BACK: Nontender without obvious deformity. No CVA tenderness. Data Data Last Documented VS Vital Signs Date Time Temp Pulse Resp B/P (MAP) Pulse Ox O2 Delivery O2 Flow Rate FiO2 05/13/17 15:16 97.4 110 19 117/68 99 05/13/17 12:56 Nasal Cannula 2.00 Orders Orders Electrocardiogram (05/13/17 12:52) Basic Metabolic Panel (Bmp) (05/13/17 12:52) B-Type Natriuretic Peptide (05/13/17 12:52) Ckmb (Isoenzyme) Profile (05/13/17 12:52) Complete Blood Count With Diff (05/13/17 12:52) Magnesium (Mg) (05/13/17 12:52) Prothrombin Time / Inr (Pt) (05/13/17 12:52) Act Partial Throm Time (Ptt) (05/13/17 12:52) Troponin I (05/13/17 12:52) Chest, Single Ap (05/13/17 12:52) Ecg Monitoring (05/13/17 12:52) Bilateral Bp Monitoring (05/13/17 12:52) Iv Access Insert/Monitor (05/13/17 12:52) Oximetry (05/13/17 12:52) Oxygen Administration (05/13/17 12:52) Sodium Chloride 0.9% Flush (Ns Flush) (05/13/17 13:00) Type And Screen (05/13/17 12:52) Red Blood Cells (Rbc) (05/13/17 12:52) Blood Product Administration (05/13/17 12:52) Sodium Chlor 0.9% 1000 Ml Inj (Ns 1000 M (05/13/17 13:00) Furosemide Inj (Lasix Inj) (05/13/17 14:45) Consult Cardiology (05/13/17 ) Consult Hematology (05/13/17 ) (Hub Use Only)Inp Phy Cons/Ref (05/13/17 ) Admit Order (Ed Use Only) (05/13/17 15:50) Labs Laboratory Tests Test 05/13/17 13:00 White Blood Count 4.7 TH/MM3 Red Blood Count 1.80 MIL/MM3 Hemoglobin 6.5 GM/DL Hematocrit 19.6 % Mean Corpuscular Volume 108.9 FL Mean Corpuscular Hemoglobin 36.0 PG Mean Corpuscular Hemoglobin Concent 33.1 % Red Cell Distribution Width 31.1 % Platelet Count 95 TH/MM3 Mean Platelet Volume 9.9 FL Neutrophils (%) (Auto) 73.3 % Lymphocytes (%) (Auto) 12.5 % Monocytes (%) (Auto) 12.2 % Eosinophils (%) (Auto) 0.8 % Basophils (%) (Auto) 1.2 % Neutrophils # (Auto) 3.4 TH/MM3 Lymphocytes # (Auto) 0.6 TH/MM3 Monocytes # (Auto) 0.6 TH/MM3 Eosinophils # (Auto) 0.0 TH/MM3 Basophils # (Auto) 0.1 TH/MM3 CBC Comment AUTO DIFF Differential Comment AUTO DIFF CONFIRMED Prothrombin Time 14.4 SEC Prothromb Time International Ratio 1.3 RATIO Activated Partial Thromboplast Time 27.9 SEC Blood Urea Nitrogen 46 MG/DL Creatinine 1.91 MG/DL Random Glucose 147 MG/DL Calcium Level 9.2 MG/DL Magnesium Level 2.8 MG/DL Sodium Level 138 MEQ/L Potassium Level 4.5 MEQ/L Chloride Level 107 MEQ/L Carbon Dioxide Level 20.0 MEQ/L Anion Gap 11 MEQ/L Estimat Glomerular Filtration Rate 33 ML/MIN Total Creatine Kinase 182 U/L Troponin I 2.34 NG/ML B-Type Natriuretic Peptide 4271 PG/ML MDM Medical Decision Making Medical Screen Exam Complete: Yes Emergency Medical Condition: Yes Differential Diagnosis Chest pain versus CHF exacerbation versus symptomatic anemia versus pneumonia versus ACS versus metabolic drainage from versus other Narrative Course 86-year-old male with PMH of A. fib, CHF, HTN, hypothyroidism, bovine valve replacement, myelodysplastic syndrome presents to the ED for evaluation of 1 week history of increasing shortness of breath and burning chest pain. Worsened on exertion. He denies fevers, chills, palpitations, cough, nausea, vomiting. He endorses chronic loose stools, no worse today. Denies melena, hematochezia, BRBPR. She was seen by the PCP today, EKG in the office showed A. fib with RVR. Hemoglobin on outpatient labs was 6.2. He is followed by Dr. Crooks, cardiology and Dr. Mcgraw, heme/onc. Vitals reviewed. Patient is tachycardic on presentation. Physical exam reveals a humerus white male in no acute distress. Heart rate irregularly irregular without appreciable M/R/G. Chest CTAB. Abdomen soft, nontender. No lower extremity edema. Area patient was administered a liter of fluids. EKG rate 114, A. fib with RVR. Mild ST depression with slurring in V4 V5 and V6, similar to previous EKG of . Reviewed by Dr. Almonte CXR: Mild CHF per radiology read. Cardiac enzymes: Troponin 2.3. CBC: WBCs 4.7. Hemoglobin 6.5. Hematocrit 19.6. Platelet 95. CMP: BUN 46, creatinine 1.91. BNP: [address] Crooks, who recommends treatment of the heart failure. He does not recommend heparin initiation at this time for NSTEMI. I spoke with Dr. Hernández, supervisor bonding heme onc provider. He recommends 2 units of PRBCs and admission. I spoke with the residents who agreed to accept the patient to the CICU under Dr.Van Monet. Please see medicine, heme/onc and cardiology notes for disposition. HemaPrompt Point of Care Internal Pos. & Neg. Controls: Passed Fecal Specimen Occult Blood: Negative Dara Horowitz May 13, 2017 13:09
[2017-05-13 13:30] LABS: AUTOMATED NEUTROPHIL # 3.4 TH/MM3 (1.8-7.7); BASOPHIL # 0.1 TH/MM3 (0-0.2); BASOPHIL % 1.2 % (0.0-2.0); EOSINOPHIL % 0.8 % (0.0-4.0); LYMPH % 12.5 % (9.0-44.0); LYMPHOCYTE # 0.6 TH/MM3 (1.0-4.8); MEAN CELL VOLUME 108.9 FL (80.0-100.0); MEAN CORPUSCULAR HGB CONC 33.1 % (32.0-36.0); MONO % 12.2 % (0.0-8.0); NEUT % 73.3 % (16.0-70.0); PLATELET COUNT 95 TH/MM3 (150-450); RED CELL DISTRIBUTION WIDTH 31.1 % (11.6-17.2); WHITE BLOOD COUNT 4.7 TH/MM3 (4.0-11.0)
[2017-05-13 13:36] LABS: HEMO FLAGS AUTO DIFF
--- NOTE | 2017-05-13 13:37 | RADRPT ---
EXAM DATE/TIME: 05/13/2017 13:27 [facility] COMPARISON: CHEST SINGLE AP, January 07, 2017, 12:55. INDICATIONS : Chest pain and shortness of breath. MEDICAL HISTORY : Hypertension. Congestive heart failure. Afib. SURGICAL HISTORY : Valve repair. ENCOUNTER: Initial ACUITY: 2 days PAIN SCORE: 7/10 LOCATION: Bilateral chest FINDINGS: First moderate congestive failure present, with minimal blunting right posterior sulcus. Would valve prosthesis is noted. There is no pneumothorax. The portion of the bony skeleton visualized is unrem arkable. CONCLUSION: Moderate congestive failure. Terry Carrero MD FACR on May 13, 2017 at 13:29 Board Certified Radiologist. This report was verified electronically.
[2017-05-13 13:38] LABS: APTT (PATIENT) 27.9 SEC (24.3-30.1); INTERNATIONAL NORMALIZED RATIO 1.3 RATIO; PROTHROMBIN TIME - PATIENT 14.4 SEC (9.8-11.6)
[2017-05-13 13:44] LABS: HEMATOCRIT 19.6 % (39.0-51.0)
[2017-05-13 14:10] LABS: MAGNESIUM 2.8 MG/DL (1.5-2.5); POTASSIUM 4.5 MEQ/L (3.5-5.1)
[2017-05-13 14:19] LABS: SCAN/DIFF AUTO DIFF CONFIRMED
[2017-05-13] MEDS ORDERED: FUROSEMIDE 40 MG/4 ML VIAL IV PUSH ONE ×2 (14:45→16:15)
--- NOTE | 2017-05-13 15:57 | HHI.HP ---
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 he is unable to lie flat and has to prop himself up at night. He does wake up multiple times during the night to pee and notices that he is short of breath. Patient claims he continues to urinate frequently this week. In addition, He has been experiencing chest pain every night this week; this pain feels like an epigastric burning and occurs at rest in the evenings. The patient states this pain lasts a couple of minutes and does not feel like acid reflux. He did not try any medications to alleviate the pain. He did not have any radiation of the pain. He did not experience any shortness of breath or dizziness during these episodes. He is able to walk long distances( for example around the grocery store) and not experience any chest pain. Patient denies any fevers/chills. Patient denies any palpitations. Patient denies any recent illnesses. He is followed by Dr. Crooks, cardiology and Dr. Mcgraw, heme/onc. (Ivanna Baumann MD R2) Review of Systems Constitutional: DENIES: Fever, Chills Endocrine: DENIES: Polydipsia, Polyuria Eyes: DENIES: Blurred vision, Diplopia Ears, nose, mouth, throat: DENIES: Hearing loss, Vertigo Respiratory: DENIES: Snoring, Wheezing Cardiovascular: DENIES: Palpitations, Syncope Gastrointestinal: DENIES: Black stools, Bloody stools Genitourinary: DENIES: Urinary frequency, Urinary incontinence Musculoskeletal: DENIES: Muscle aches Hematologic/lymphatic: DENIES: Bruising Psychiatric: DENIES: Anxiety, Confusion (Ivanna Baumann MD R2) Past Family Social History Past Medical History Hypertension Chronic atrial fibrillation Hypothyroidism Congestive heart failure Chronic kidney disease Dementia Myelodysplastic syndrome requiring transfusion Macular degeneration Hyperlipidemia Past Surgical History Cardiac valve replacement Cardiac valve repair Bilateral cataract surgery Bilateral hernia repair (Ivanna Baumann MD R2) Allergies: Coded Allergies: No Known Allergies (Unverified , 05/13/17) Family History Reviewed is significant for mother having late onset diabetes, father having kidney stones Social History Patient denies any tobacco use, does drink alcohol occasionally. No illicit drug use (Ivanna Baumann MD R2) Physical Exam Vital Signs Vital Signs Date Time Temp Pulse Resp B/P (MAP) Pulse Ox O2 Delivery O2 Flow Rate FiO2 05/13/17 15:16 97.4 110 19 117/68 99 05/13/17 14:42 97.4 112 21 137/58 05/13/17 12:56 96 Nasal Cannula 2.00 05/13/17 12:56 96 05/13/17 12:50 111 20 125/60 (81) 97 05/13/17 12:42 98.5 136 16 107/60 (76) 98 Physical Exam GENERAL: This is a well-nourished, well-developed patient, in no apparent distress. SKIN: No rashes, ecchymoses or lesions. Cool and dry. HEAD: Atraumatic. Normocephalic. No temporal or scalp tenderness. EYES: Pupils equal round and reactive. Extraocular motions intact. No scleral icterus. No injection or drainage. ENT: Nose without bleeding, purulent drainage or septal hematoma. Throat without erythema, tonsillar hypertrophy or exudate. Uvula midline. Airway patent. NECK: Trachea midline. No JVD or lymphadenopathy. Supple, nontender, no meningeal signs. CARDIOVASCULAR: Irregular rate and rhythm without murmurs, gallops, or rubs. RESPIRATORY: Decreased breath sounds, sounds equal bilaterally. No wheezes, rales, or rhonchi. GASTROINTESTINAL: Abdomen soft, non-tender, nondistended. No hepato-splenomegaly , or palpable masses. No guarding. MUSCULOSKELETAL: Extremities without clubbing, cyanosis, or edema. No joint tenderness, effusion, trace edema equal bilaterally. No calf tenderness. Negative Homans sign bilaterally. NEUROLOGICAL: Awake and alert. Cranial nerves II through XII intact. Motor and sensory grossly within normal limits. Five out of 5 muscle strength in all muscle groups. Normal speech. Laboratory Laboratory Tests Test 05/13/17 13:00 White Blood Count 4.7 Red Blood Count 1.80 Hemoglobin 6.5 Hematocrit 19.6 Mean Corpuscular Volume 108.9 Mean Corpuscular Hemoglobin 36.0 Mean Corpuscular Hemoglobin Concent 33.1 Red Cell Distribution Width 31.1 Platelet Count 95 Mean Platelet Volume 9.9 Neutrophils (%) (Auto) 73.3 Lymphocytes (%) (Auto) 12.5 Monocytes (%) (Auto) 12.2 Eosinophils (%) (Auto) 0.8 Basophils (%) (Auto) 1.2 Neutrophils # (Auto) 3.4 Lymphocytes # (Auto) 0.6 Monocytes # (Auto) 0.6 Eosinophils # (Auto) 0.0 Basophils # (Auto) 0.1 CBC Comment AUTO DIFF Differential Comment AUTO DIFF CONFIRMED Prothrombin Time 14.4 Prothromb Time International Ratio 1.3 Activated Partial Thromboplast Time 27.9 Blood Urea Nitrogen 46 Creatinine 1.91 Random Glucose 147 Calcium Level 9.2 Magnesium Level 2.8 Sodium Level 138 Potassium Level 4.5 Chloride Level 107 Carbon Dioxide Level 20.0 Anion Gap 11 Estimat Glomerular Filtration Rate 33 Total Creatine Kinase 182 Troponin I 2.34 B-Type Natriuretic Peptide 4271 (Ivanna Baumann MD R2) Result Diagram: 05/13/17 1300 05/13/17 1300 Caprini VTE Risk Assessment Caprini VTE Risk Assessment: No/Low Risk (score <= 1) Caprini Risk Assessment Model Point Value = 1 Point Value = 2 Point Value = 3 Point Value = 5 Age 41-60 Minor surgery BMI > 25 kg/m2 Swollen legs Varicose veins or History of unexplained or recurrent spontaneous Oral contraceptives or hormone replacement Sepsis (< 1 month) Serious lung disease, including pneumonia (< 1 month) Abnormal pulmonary function Acute myocardial infarction Congestive heart failure (< 1 month) History of inflammatory bowel disease Medical patient at bed rest Age 61-74 Arthroscopic surgery Major open surgery (> 45 min) Laparoscopic surgery (> 45 min) Malignancy Confined to bed (> 72 hours) Immobilizing plaster cast Central venous access Age >= 75 History of VTE Family history of VTE Factor V Leiden Prothrombin 44009G Lupus anticoagulant Anticardiolipin antibodies Elevated serum homocysteine Heparin-induced thrombocytopenia Other congenital or acquired thrombophilia Stroke (< 1 month) Elective arthroplasty Hip, pelvis, or leg fracture Acute spinal cord injury (< 1 month) Prophylaxis Regimen Total Risk Factor Score Risk Level Prophylaxis Regimen 0-1 Low Early ambulation 2 Moderate Order ONE of the following: *Sequential Compression Device (SCD) *Heparin 5000 units SQ BID 3-4 Higher Order ONE of the following medications: *Heparin 5000 units SQ TID *Enoxaparin/Lovenox 40 mg SQ daily (WT < 150 kg, CrCl > 30 mL/min) *Enoxaparin/Lovenox 30 mg SQ daily (WT < 150 kg, CrCl > 10-29 mL/min) *Enoxaparin/Lovenox 30 mg SQ BID (WT < 150 kg, CrCl > 30 mL/min) AND/OR *Sequential Compression Device (SCD) 5 or more Highest Order ONE of the following medications: *Heparin 5000 units SQ TID (Preferred with Epidurals) *Enoxaparin/Lovenox 40 mg SQ daily (WT < 150 kg, CrCl > 30 mL/min) *Enoxaparin/Lovenox 30 mg SQ daily (WT < 150 kg, CrCl > 10-29 mL/min) *Enoxaparin/Lovenox 30 mg SQ BID (WT < 150 kg, CrCl > 30 mL/min) AND *Sequential Compression Device (SCD) (Ivanna Baumann MD R2) Assessment and Plan Assessment and Plan 86-year-old male with past medical history of A. 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 Code Status Full code Discussed Condition With Dr. Urbina (Ivanna Baumann MD R2) Attending Attestation THIS CASE WAS DISCUSSED WITH THE RESIDENT PHYSICIANS. I HAVE REVIEWED THE RECORD AND AGREE WITH THE ABOVE NOTE AND PLAN OF CARE WAS DISCUSSED. I HAVE AUTHORIZED THE ORDER FOR ADMISSION TO AN IN-PATIENT STATUS. (Anna Travis MD) Problem List: (1) Chronic kidney disease ICD Codes: N18.9 - Chronic kidney disease, unspecified Status: Chronic Plan: Creatinine 1.9 Follow-up serial BMPs Continue furosemide 40 IV twice a day Baseline creatinine 1.6-2.8 (2) Hypothyroidism ICD Codes: E03.9 - Hypothyroidism, unspecified Status: Chronic Plan: Continue levothyroxine 75 mg daily (3) Acute exacerbation of congestive heart failure ICD Codes: I50.9 - Heart failure, unspecified Status: Acute Plan: Follow up cardiology recs as follows Continue metoprolol 25 daily Continue entresto 1 tab twice a day Hold Bumex 1 mg daily Furosemide 40 IV twice a day f/u daily weights f/u I&Os 1.5L fluid restriction f/u TSH BNP 4000 CXR (05/14) :FINDINGS: First moderate congestive failure present, with minimal blunting right posterior sulcus. Would valve prosthesis is noted. There is no pneumothorax. The portion of the bony skeleton visualized is unremarkable.CONCLUSION: Moderate congestive failure. Digitoxin level WNL (4) Atrial fibrillation ICD Codes: I48.91 - Unspecified atrial fibrillation Status: Chronic Plan: Continue management as above (5) Myelodysplastic syndrome ICD Codes: D46.9 - Myelodysplastic syndrome, unspecified Status: Chronic Plan: History of myelodysplastic disorder with need for multiple transfusions Follow-up hematology recommendations (6) Demand ischemia of myocardium ICD Codes: I24.8 - Other forms of acute ischemic heart disease Status: Acute Plan: Troponin 2.67 --> 2.34 --> 3.90. Episodes of chest pain this week Follow-up cardiology recs - Likely demand ischemia due to anemia - Continue aspirin - Not a candidate for catheterization due to comorbidities and advanced age - Not a candidate for heparin due to myelodysplastic disorder Baseline troponin .05 in 01/17 (7) BPH (benign prostatic hyperplasia) ICD Codes: N40.0 - Benign prostatic hyperplasia without lower urinary tract symptoms Status: Chronic Plan: Per patient records. Patient is unsure of this condition. Continue tamsulosin 0.4 daily Hold finasteride 5 daily (suspecting it is old medication) (8) Dementia ICD Codes: F03.90 - Unspecified dementia without behavioral disturbance Status: Chronic Plan: Continue sertraline 50 daily (9) Hyperlipidemia ICD Codes: E78.5 - Hyperlipidemia, unspecified Status: Chronic Plan: Start atorvastatin 40 daily (10) Anemia ICD Codes: D64.9 - Anemia, unspecified Status: Acute Plan: Acute on chronic anemia, related to myelodysplastic syndrome - Hemoglobin 6.2 - Transfuse 2 units PRBCs - Follow up posttransfusion H&H - Per cardiology recommendations: Continue to transfuse until hemoglobin 9.0 (11) fen/ppx Status: Acute Plan: Fluids: By mouth fluids only, 1.5 L restriction Electrolytes: Follow-up serial BMPs Nutrition: Heart healthy diet DVT prophylaxis: Contraindication for anticoagulation due to myelodysplastic disorder, continue aspirin (Ivanna Baumann MD R2) Physician Certification 2 Midnight Certification Type: Admission for Inpatient Services Order for Inpatient Services The services are ordered in accordance with Medicare regulations or non- Medicare payer requirements, as applicable. In the case of services not specified as inpatient-only, they are appropriately provided as inpatient services in accordance with the 2-midnight benchmark. Estimated LOS (days): 2 days is the estimated time the patient will need to remain in the hospital, assuming treatment plan goals are met and no additional complications. Post-Hospital Plan: Not yet determined (Ivanna Baumann MD R2) 2 Midnight Certification Type: Admission for Inpatient Services Post-Hospital Plan: Not yet determined (Anna Travis MD) Problem Qualifiers (1) Chronic kidney disease: Qualified Codes: N18.9 - Chronic kidney disease, unspecified (2) Acute exacerbation of congestive heart failure: Qualified Codes: I50.23 - Acute on chronic systolic (congestive) heart failure Ivanna Baumann MD R2 May 13, 2017 15:57 Anna Travis MD May 14, 2017 14:36
[2017-05-13] MEDS ORDERED: SODIUM CHLORIDE 0.9% FLUSH 10 ML FLUSH IV FLUSH PRN (16:00)
[2017-05-13] MEDS ORDERED: MULTIPLE VITAMINS PO SCH (16:30)
[2017-05-13] MEDS ORDERED: ALPRAZolam 0.5 MG TAB PO PRN (16:30)
[2017-05-13] MEDS ORDERED: MINERALS PO SCH (16:30)
[2017-05-13] MEDS: FUROSEMIDE 40 MG/4 ML VIAL IVP SCH (18:00)
[2017-05-13] MEDS: ASPIRIN 81 MG CHEW TAB CHEW SCH (18:21)
[2017-05-13] MEDS: FAMOTIDINE 20 MG TAB PO SCH (18:21)
[2017-05-13] MEDS: DIGOXIN 0.125 MG TAB PO SCH (18:26)
[2017-05-13] MEDS: SERTRALINE HCL 50 MG TAB PO SCH (18:36)
[2017-05-13] MEDS: FLUTICASONE PROPIONATE 50 MCG/ACT 16 GM NASAL SPRAY EACH NARE SCH (21:00)
[2017-05-13] MEDS: SODIUM CHLORIDE 0.9% FLUSH 10 ML FLUSH IV FLUSH SCH (21:00)
[2017-05-13] MEDS: TRIAMCINOLONE ACETONIDE 0.1% OINT 15 GM TUBE TOPICAL SCH (21:00)
--- NOTE | 2017-05-13 21:13 | MB ---
cc: KAL STEPHENSON M.D. DATE OF CONSULTATION 05/13/2017 REASON FOR CONSULTATION Atrial fibrillation with rapid ventricular response, abnormal troponin level. HISTORY OF PRESENT ILLNESS The patient is an 86-year-old white male, followed in our office by Dr. Peter Crooks, with a history of moderate cardiomyopathy, chronic renal insufficiency, dementia, myelodysplastic syndrome, chronic atrial fibrillation, history of mitral valve replacement who was brought to the hospital after he was found to be severely anemic. The patient was initially at his primary care physician's office where EKG showed elevated heart rates. He was recommended going to the emergency department but he initially declined. The patient states he has been more dyspneic on exertion in the last several days. He also notes intermittent mild pedal edema. In the last 3 or 4 days he has experienced occasional upper chest "burning" lasting up to a few minutes. He has had similar chest burning awaken him from sleep in the past. He denies dizziness, syncope, near-syncope, paroxysmal nocturnal dyspnea. Since coming into hospital he states he feels "better." He also denies melena or bright red blood per rectum. PAST MEDICAL HISTORY 1. Cardiomyopathy with ejection fraction of 35% by echo 09/28/2016. 2. Chronic renal insufficiency. 3. Dementia. 4. Iron overload due to repeated red blood cell transfusions. 5. Myelodysplastic syndrome. 6. Chronic atrial fibrillation. 7. Remote history of bovine pericardial mitral valve replacement. MEDICATIONS His cardiac medications at home: 1. Aspirin 81 mg daily. 2. Digoxin 0.125 mg daily. 3. Entresto 24 - 26 one tablet daily. 4. Metoprolol succinate 12.5 mg daily. ALLERGIES NO KNOWN DRUG ALLERGIES. FAMILY HISTORY Noncontributory. SOCIAL HISTORY The patient denies alcohol or tobacco abuse. REVIEW OF SYSTEMS As in the history of present illness otherwise negative or noncontributory. He also denies headache, abdominal pain, nausea, vomiting, melena, fevers, cough, wheezing. PHYSICAL EXAMINATION VITAL SIGNS: On physical examination his blood pressure 117/68 with a pulse of 86, respirations 15. GENERAL: He is a well-developed, well-nourished white male in no acute distress. HEENT: Jugular venous pressure is 7-8 cm of water. Carotid pulses are 2+ bilaterally and without bruits. CHEST: Examination of the chest reveals diminished breath sounds at the bases. CARDIOVASCULAR: On cardiac examination he has an irregularly irregular rhythm without definite S3 or murmur. ABDOMEN: On abdominal examination he has a soft, nontender abdomen. Bowel sounds are present. There is no definite hepatosplenomegaly. EXTREMITIES: Examination of extremities reveals no clubbing or cyanosis. There is trace pretibial edema bilaterally. LABORATORY DATA Includes hemoglobin 6.5, platelets 95, WBC 4.7. Potassium 4.5, BUN 46, creatinine 1.91. Troponin 2.34. Brain nitrate peptide level 4271. IMAGING Chest x-ray shows moderate congestive heart failure. EKG shows atrial fibrillation with rapid ventricular response, poor R-wave progression, inferior and lateral ST depression consider ischemia. IMPRESSION Severe anemia, congestive heart failure, abnormal troponin level in this 86-year-old white male with a history of myelodysplastic syndrome with repeated need for blood transfusions, chronic atrial fibrillation, chronic renal insufficiency, moderate cardiomyopathy with ejection fraction of 35%, history of mitral valve replacement. At this time he is symptomatically much improved. His heart rate is now down into the 80s after receiving some blood transfusion today. I suspect the elevated heart rates are due to severe anemia and respiratory distress. The elevated troponin level may be due to "demand ischemia" due to the severe anemia. He also has renal insufficiency which may elevate the troponin level. He has had some "chest burning" sensations although much of it appears to be more GI in origin. He is overall a poor candidate for aggressive invasive cardiac evaluation with his severe anemia, renal insufficiency, advanced age. RECOMMENDATIONS 1. Continue his usual metoprolol and digoxin. 2. As he is not a candidate for oral anticoagulation therapy, continue daily baby aspirin. 3. Continue gentle diuresis as well as his Entresto. 4. Continue blood transfusions to raise his hemoglobin to at least 9.0. MD CHRISTINE Lawrence/PORTER /4:31 PM /8:58 PM MTDMarisa
[2017-05-13 21:14] LABS: HEMATOCRIT 25.3 % (39.0-51.0)
[2017-05-13 21:19] LABS: REVIEW FLAG FINAL
[2017-05-13] MEDS: POTASSIUM CHLORIDE 20 MEQ CONTROLLED RELEASE TAB PO SCH (21:20)
[2017-05-13] MEDS: METOPROLOL SUCCINATE 25 MG EXTENDED RELEASE TAB PO SCH (21:20)
[2017-05-13] MEDS: TAMSULOSIN HCL 0.4 MG CAP PO SCH (21:21)
[2017-05-13] MEDS: MULTIVITAMIN-OPHTHALMIC 1 TAB PO SCH (21:52)
[2017-05-13] MEDS: SACUBITRIL/VALSARTAN 24 MG-26 MG TAB PO SCH (21:52)
[2017-05-14] VITALS (29 sets, daily range): BP systolic 98–136; BP diastolic 51–68; PULSE 51–64; RESP 14–20; TEMP 96.5–97.8; O2SAT 60–100
[2017-05-14 01:56] LABS: BICARBONATE 23.2 MEQ/L (21.0-32.0); POTASSIUM 4.5 MEQ/L (3.5-5.1)
[2017-05-14 05:48] LABS: AUTOMATED NEUTROPHIL # 3.7 TH/MM3 (1.8-7.7); BASOPHIL # 0.1 TH/MM3 (0-0.2); BASOPHIL % 1.4 % (0.0-2.0); EOSINOPHIL % 0.9 % (0.0-4.0); HEMATOCRIT 22.9 % (39.0-51.0); LYMPH % 11.2 % (9.0-44.0); LYMPHOCYTE # 0.6 TH/MM3 (1.0-4.8); MEAN CELL VOLUME 101.3 FL (80.0-100.0); MEAN CORPUSCULAR HEMOGLOBIN 34.8 PG (27.0-34.0); MEAN CORPUSCULAR HGB CONC 34.4 % (32.0-36.0); MONO % 16.6 % (0.0-8.0); NEUT % 69.9 % (16.0-70.0); PLATELET COUNT 79 TH/MM3 (150-450); RED BLOOD COUNT 2.27 MIL/MM3 (4.50-5.90); RED CELL DISTRIBUTION WIDTH 30.6 % (11.6-17.2); WHITE BLOOD COUNT 5.3 TH/MM3 (4.0-11.0)
[2017-05-14 05:52] LABS: INTERNATIONAL NORMALIZED RATIO 1.3 RATIO; PROTHROMBIN TIME - PATIENT 15.1 SEC (9.8-11.6)
[2017-05-14 05:58] LABS: HEMO FLAGS AUTO DIFF
[2017-05-14] MEDS: LEVOTHYROXINE SODIUM 75 MCG TAB PO SCH (05:59)
[2017-05-14 06:06] LABS: ANION GAP 12 MEQ/L (5-15); AST (GOT) 42 U/L (15-37); BICARBONATE 21.2 MEQ/L (21.0-32.0); BLOOD UREA NITROGEN 49 MG/DL (7-18); CHLORIDE 108 MEQ/L (98-107); GLOMERULAR FILTRATION RATE 32 ML/MIN (>89); MAGNESIUM 2.6 MG/DL (1.5-2.5); POTASSIUM 4.7 MEQ/L (3.5-5.1); SODIUM (NA) 141 MEQ/L (136-145)
[2017-05-14 06:07] LABS: ALT (GPT) 17 U/L (12-78)
[2017-05-14 06:20] LABS: ALKALINE PHOSPHATASE 88 U/L (45-117); INDIRECT BILIRUBIN 1.3 MG/DL (0.0-0.8); TOTAL BILIRUBIN ADULT 1.9 MG/DL (0.2-1.0)
[2017-05-14] MEDS ORDERED: SODIUM CHLOR 0.9% 250 ML INJ 250 ML IV ONE (06:30)
[2017-05-14 07:21] LABS: SCAN/DIFF AUTO DIFF CONFIRMED
[2017-05-14 07:22] LABS: ACANTHOCYTES OCC (NORMAL)
[2017-05-14] MEDS: FUROSEMIDE 40 MG/4 ML VIAL IVP SCH ×2 (09:00→17:43)
[2017-05-14] MEDS: ASPIRIN 81 MG CHEW TAB CHEW SCH (09:00)
[2017-05-14] MEDS: SERTRALINE HCL 50 MG TAB PO SCH (09:45)
[2017-05-14] MEDS: MULTIVITAMIN-OPHTHALMIC 1 TAB PO SCH ×2 (09:45→20:35)
[2017-05-14] MEDS: ATORVASTATIN 40 MG TAB PO SCH (09:45)
[2017-05-14] MEDS: DIGOXIN 0.125 MG TAB PO SCH (09:45)
[2017-05-14] MEDS: POTASSIUM CHLORIDE 20 MEQ CONTROLLED RELEASE TAB PO SCH ×2 (09:45→20:32)
[2017-05-14] MEDS: SACUBITRIL/VALSARTAN 24 MG-26 MG TAB PO SCH ×2 (09:45→20:33)
[2017-05-14] MEDS: FAMOTIDINE 20 MG TAB PO SCH (09:45)
[2017-05-14] MEDS: SODIUM CHLORIDE 0.9% FLUSH 10 ML FLUSH IV FLUSH SCH ×2 (09:46→20:34)
[2017-05-14] MEDS: TRIAMCINOLONE ACETONIDE 0.1% OINT 15 GM TUBE TOPICAL SCH ×2 (09:46→20:34)
[2017-05-14] MEDS: FLUTICASONE PROPIONATE 50 MCG/ACT 16 GM NASAL SPRAY EACH NARE SCH ×2 (09:47→20:34)
--- NOTE | 2017-05-14 11:28 | HHI.FPPN ---
Problem Problem List: (1) Acute exacerbation of congestive heart failure (2) Atrial fibrillation (3) Demand ischemia of myocardium (4) Chronic kidney disease (5) Myelodysplastic syndrome (6) Anemia Subjective Subjective 86 year old male was admitted to the hospital for symptomatic anemia and acute on chronic CHF exacerbation. He was reportedly doing well at home and had been to see his heme that was following for myelodysplastic syndrome was noted to have Hgb 6.3 and was sent to the ED for eval. Patient states he has been increasing in SOB as well with some chest pressure in the sternal area at night. He has h/o CHF, AFIB and CAD. He is s/p 2 units PRBC and receiving a third at the time of my evaluation. He has been placed on IV diuretics and his CHF exacerbation is being treated. He does feel better since admission -- slight improvement in his breathing and less SOB. States no longer having chest pain since his admission. PMH/PSH Cardiomyopathy CAD AFIB myelodyspasia with anemia HTN high cholesterol dementia CKD mitral valve repair hernia repair SOCIAL - no tobacco, occ ETOH, no illicits FH - NC ROS -- negative except per HPI Hospital Objective Objective Laboratory Tests - Abnormals Test 05/13/17 13:00 05/13/17 20:30 05/14/17 01:20 05/14/17 05:12 Red Blood Count 1.80 MIL/MM3 2.27 MIL/MM3 Hemoglobin 6.5 GM/DL 8.6 GM/DL 7.9 GM/DL Hematocrit 19.6 % 25.3 % 22.9 % Mean Corpuscular Volume 108.9 FL 101.3 FL Mean Corpuscular Hemoglobin 36.0 PG 34.8 PG Red Cell Distribution Width 31.1 % 30.6 % Platelet Count 95 TH/MM3 79 TH/MM3 Neutrophils (%) (Auto) 73.3 % Monocytes (%) (Auto) 12.2 % 16.6 % Lymphocytes # (Auto) 0.6 TH/MM3 0.6 TH/MM3 Prothrombin Time 14.4 SEC 15.1 SEC Blood Urea Nitrogen 46 MG/DL 51 MG/DL 49 MG/DL Creatinine 1.91 MG/DL 2.01 MG/DL 2.01 MG/DL Random Glucose 147 MG/DL 107 MG/DL Magnesium Level 2.8 MG/DL 2.6 MG/DL Carbon Dioxide Level 20.0 MEQ/L Estimat Glomerular Filtration Rate 33 ML/MIN 32 ML/MIN 32 ML/MIN Troponin I 2.34 NG/ML 3.90 NG/ML 5.38 NG/ML B-Type Natriuretic Peptide 4271 PG/ML GREATER THAN 5000 PG/ML Calcium Level 8.4 MG/DL Chloride Level 109 MEQ/L 108 MEQ/L Aspartate Amino Transf (AST/SGOT) 42 U/L Total Bilirubin 1.9 MG/DL Direct Bilirubin 0.6 MG/DL Indirect Bilirubin 1.3 MG/DL Folate GREATER THAN 20.0 NG/ML Thyroid Stimulating Hormone 3rd Gen 4.660 uIU/ML Vital Signs 05/13/17 05/13/17 05/13/17 05/13/17 12:42 12:50 12:56 12:56 Temp 98.5 Pulse 136 111 Resp 16 20 B/P (MAP) 107/60 (76) 125/60 (81) Pulse Ox 98 97 96 96 O2 Delivery Nasal Cannula O2 Flow Rate 2.00 05/13/17 05/13/17 05/13/17 05/13/17 14:42 15:16 17:14 17:25 Temp 97.4 97.4 97.7 97.7 Pulse 112 110 109 104 Resp 21 19 20 20 B/P (MAP) 137/58 117/68 131/63 131/63 Pulse Ox 99 97 98 05/13/17 05/13/17 05/13/17 05/13/17 17:49 18:26 18:45 20:00 Temp 97.9 97.7 Pulse 101 101 74 Resp 18 21 18 B/P (MAP) 126/62 131/69 (89) 119/56 (77) Pulse Ox 95 97 100 O2 Delivery Room Air Nasal Cannula O2 Flow Rate 1.00 05/13/17 05/13/17 05/13/17 05/13/17 20:00 21:00 22:32 23:48 Temp 97.9 Pulse 86 90 58 52 Resp 16 B/P (MAP) 91/55 (67) Pulse Ox 95 05/13/17 05/14/17 05/14/17 05/14/17 23:48 00:09 00:19 01:15 Pulse 54 62 52 Pulse Ox 98 05/14/17 05/14/17 05/14/17 05/14/17 02:19 03:13 03:13 04:04 Temp 97.8 Pulse 52 53 52 56 Resp 20 B/P (MAP) 98/53 (68) Pulse Ox 98 05/14/17 05/14/17 05/14/17 05/14/17 05:27 06:28 07:15 08:05 Temp 97.5 Pulse 55 57 54 58 Resp 18 B/P (MAP) 98/52 (67) Pulse Ox 95 05/14/17 05/14/17 05/14/17 09:52 09:54 10:15 Temp 97.3 97.5 Pulse 53 51 Resp 16 16 B/P (MAP) 99/54 104/51 Pulse Ox 97 98 FiO2 21 INTAKE & OUTPUT 05/15/17 07:00 Intake Total 10 ml Balance 10 ml Physical exam O. CONSTITUTIONAL/GEN: normally nourished, slightly breathless with speaking - - he was just up with PT prior to the exam and pt noted increase SOB after ambulation with PT EYES: conjunctiva normal, PERRLA, EOMI. ENT: Mouth and pharynx normal. NECK: thyroid midline, carotids symmetrical. LUNGS: good air movement, no wheezing, bilateral crackles bases CARDIOVASCULAR: irr, irr. GI/ABD: soft without masses, without organomegaly. : no CVA tenderness NEURO: No focal deficits - able to ambulate with assistance SKIN: color normal, no rashes noted. HEME/LYMPH: no bruising, petechia or significant adenopathy MUSC: back is normal in appearance. Extremities are normal in appearance. PSYCH/MENTAL STATUS: Alert and oriented x 3. Assessment Assessment: (1) Acute exacerbation of congestive heart failure Plan: patient has improved since admission -- he still has a positive fluid balance but clinically feels better. 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 Not a candidate for intervention continue current medical management (4) Myelodysplastic syndrome Plan: this is managed per heme -- this is the source of the anemia -- looking through the records looks like his baseline is around 8.0-8.5 for hemoglobin. he has received three units PRBCS at this time -- will reassess his h/h (5) Symptomatic anemia (6) Hypothyroidism Plan: TSH slightly elevated but not a concern based on his current acute issues. No changes and continue his home medication (7) Hyperlipidemia Plan: cont home meds (8) Dementia Plan: stable-- mild -- continue home meds Assessment 86 year old male with CHF exac and anemia secondary to myelodysplastic syndrome -- improved with gentle diuresis and transfusion. Continue the current plan of care. PLAN PLAN Patient seen and discussed with the resident team, Dr. Murrieta, Dr. Baumann, Dr. Carlitos Travis,Anna Brownlee MD May 14, 2017 11:28
--- NOTE | 2017-05-14 12:15 | EKG ---
Date Performed: 05/14/2017 Time Performed: 01:26:30 PTAGE: 86 years EKG: Atrial fibrillation with slow ventricular response Prolonged QT interval Indeterminate axis Poor R wave progression - probable normal variant Extensive ST-T changes may be due to myocardial is chemia Compared to prior tracing no significant change Abnormal ECG PREVIOUS TRACING : 05/13/2017 20.19 DOCTOR: Shantelle Almodovar Interpretating Date/Time 05/14/2017 12:13:02
--- NOTE | 2017-05-14 12:46 | ECHRPT ---
Indication: lv function CONCLUSIONS The left ventricular systolic function is severely reduced with an estimated ejection fraction less than 20%. Moderately dilated left ventricle. Wall thickness is normal. There is global left ventricular dysfunction. The left atrial size is [id number]-[id number] dilated. Mild mitral valve regurgitation. Normally functioning mitral valve bioprosthesis. There is mild tricuspid valve regurgitation. The estimated pulmonary arterial pressure is 43.6 mmHg. BP: / HR: Rhythm: MEASUREMENTS (Male / Female) Normal Values Technical Quality:Good 2D ECHO LV Diastolic Diameter PLAX 5.7 cm 4.2 - 5.9 / 3.9 - 5.3 cm LV Systolic Diameter PLAX 5.3 cm IVS Diastolic Thickness 1.2 cm 0.6 - 1.0 / 0.6 - 0.9 cm LVPW Diastolic Thickness 1.1 cm 0.6 - 1.0 / 0.6 - 0.9 cm LV Relative Wall Thickness 0.4 RV Internal Dim ED PLAX 4.1 cm DOPPLER MV Area PHT 3.3 cm TR Peak Velocity 290.0 cm/s TR Peak Gradient 33.6 mmHg Right Atrial Pressure 10.0 mmHg Pulmonary Artery Systolic Pressu 43.6 mmHg Right Ventricular Systolic Press 43.6 mmHg FINDINGS LEFT VENTRICLE The left ventricular systolic function is severely reduced with an estimated ejection fraction less than 20%. Moderately dilated left ventricle. Wall thickness is normal. There is global left ventricular dysfunction. RIGHT VENTRICLE Normal right ventricular size and systolic function. LEFT ATRIUM The left atrial size is ltbbvtin-ti-fjbwrzkj dilated. RIGHT ATRIUM The right atrial size is normal. ATRIAL SEPTUM Normal atrial septal thickness without atrial level shunting by limited color doppler interrogation. AORTA The aortic root and proximal ascending aorta are normal in size on limited imaging. MITRAL VALVE Structurally normal mitral valve. Mild mitral valve regurgitation. Normally functioning mitral valve bioprosthesis. AORTIC VALVE Trileaflet aortic valve. No aortic valve stenosis or regurgitation. TRICUSPID VALVE Structurally normal tricuspid valve. There is mild tricuspid valve regurgitation. The estimated pulmonary arterial pressure is 43.6 mmHg. PULMONARY VALVE No pulmonary valve regurgitation or stenosis. VESSELS The inferior vena cava is normal in size. PERICARDIUM No pericardial effusion. Allen Cunha MD, FACC (Electronically Signed) Final Date:14 May 2017 12:45
[2017-05-14] MEDS ORDERED: BUMETANIDE INJ 1 MG/4 ML VIAL IV PUSH ONE (13:00)
--- NOTE | 2017-05-14 14:04 | EKG ---
Date Performed: 05/13/2017 Time Performed: 12:56:47 PTAGE: 86 years EKG: ATRIAL FIBRILLATION WITH RAPID VENTRICULAR RESPONSE POSSIBLE ANTERIOR MYOCARDIAL INFARCTION ST DEPRESSION, CONSIDER SUBENDOCARDIAL INJURY ABNORMAL ECG Compared to PREVIOUS TRACING , there has been an increase in the inferior/lateral ST segment depressi on. Clinical correlation will be important. PREVIOUS TRACIN01/26/2017 14.35 DOCTOR: Shantelle Almodovar Interpretating Date/Time 05/14/2017 14:03:36
--- NOTE | 2017-05-14 14:05 | EKG ---
Date Performed: 05/13/2017 Time Performed: 20:19:20 PTAGE: 86 years EKG: Atrial fibrillation with rapid ventricular response Indeterminate axis Possible anterior in farct - age undetermined Lateral ST-T changes are nonspecific Abnormal ECG Compared to PREVIOUS TRACING , there has been improvement in the inferior/lateral ST segment changes. Clinical correlation remains important. PREVIOUS TRACIN05/13/2017 12.56 DOCTOR: Shantelle Almodovar Interpretating Date/Time 05/14/2017 14:04:15
--- NOTE | 2017-05-14 19:35 | MB ---
cc: TANNER REYEZ DATE OF CONSULTATION 05/14/17 DATE OF 1930 REASON FOR CONSULTATION Patient with a history of MDS who was admitted to the hospital with acute on chronic congestive heart failure and severe anemia. HISTORY OF PRESENT ILLNESS Mr. Mancia is an 86-year-old male who has a diagnosis of low grade MDS with refractory anemia. He was diagnosed in 2014. He is transfusion dependent. He requires frequent PRBC transfusions. He is also receiving Aranesp injections. He has not been treated with A HYPOMETHYLATING or immunomodulatory agent for his MDS yet. Due to a advanced age, a repeat bone marrow biopsy was not obtained. He has mild degree of dementia, He also has hearing loss. He was sent to the emergency room after he developed acute dyspnea. His hemoglobin was 6.2. He was having difficulty lying flat. He was also urinating frequently. In the emergency department, he was found to have acute on chronic congestive heart failure based on the chest x-ray. He was started on diuretics. His BNP on admission was quite elevated at 4271. The patient has been seen by cardiology and they have recommended continued medical management with metoprolol and Digoxin. They also recommended daily aspirin. Due to the patient's history of GI bleeding in the past, oral anticoagulation has not been recommended. The patient feels somewhat better today. He is sitting up in a chair. He is largely asymptomatic at this time. He has been transfused two units of packed red blood cells. REVIEW OF SYSTEMS A comprehensive 14-point review of systems was completed which is negative except as described in HPI. PAST MEDICAL HISTORY 1. Myelodysplastic syndrome, 2. Hypertension, 3. Chronic atrial fibrillation, 4. Hypothyroidism, 5. Congestive heart failure, 6. Chronic kidney disease, 7. Mild dementia, 8. Macular degeneration 9. Hyperlipidemia. PAST SURGICAL HISTORY 1. Cardiac valve replacement, 2. Bilateral cataract surgery 3. Bilateral hernia repair FAMILY HISTORY Reviewed and is noncontributory to this admission. SOCIAL HISTORY He does not smoke cigarettes. He does not drink alcohol. No illicit drug use. MEDICATIONS 1. Lipitor 40 mg daily, 2. Levothyroxine 75 mcg daily, 3. Metoprolol 12.5 mg p.o. q.h.s. 4. Entresto 24 x 26 1 tablet p.o. b.i.d., 5. Flomax 0.4 mg p.o. q.h.s. 6. Fluticasone spray each nostril as needed 7. Lasix 40 mg b.i.d., 8. Xanax 0.5 mg p.o. q.h.s. 9. Aspirin 81 mg daily, 10. Digoxin 0.125 mg p.o. daily, 11. Pepcid 20 mg p.o. daily, 12. Zoloft 50 mg p.o. daily. ALLERGIES NO KNOWN DRUG ALLERGIES PHYSICAL EXAMINATION VITAL SIGNS: Blood pressure is 117/68, pulse is in the 50s, temperature 97.7, O2 sats are 99% on room air. GENERAL: Well-developed, well-nourished elderly male who is no apparent distress. HEENT: Pupils are equal, round, react to light. EOMI. No oral thrush. No oral lesions. NECK: Supple. No JVD, no bruits. No lymphadenopathy. CHEST: Clear to auscultation bilaterally. CARDIAC: S1-S2 regular rate and rhythm. ABDOMEN: Soft, nontender, nondistended. Bowel sounds are present. EXTREMITIES: Without edema, erythema or cyanosis. SKIN: Without any petechiae, lesions or bruises. NEUROLOGIC: No focal deficits. PSYCHIATRIC: Mood and affect is appropriate. No lymphadenopathy on exam. LABORATORY DATA WBCs 5.3, hemoglobin is 7.9, MCV is 101.3, platelet count is 79,000. Serum chemistries show sodium of 141, potassium 4.7, chloride 108, CO2 21.2, BUN 49, creatinine 2, GFR is 32, calcium is 8.7, total bilirubin is 1.9, direct bilirubin is 0.6, indirect bilirubin is 1.3, AST is 42, ALT is 17, alk phos is 18. BNP is greater than 5000. His folate levels are greater than 20. TSH is 4.6. ASSESSMENT/PLAN This is an 86-year-old male with a history of MDS with refractory anemia who was admitted to the hospital with increasing dyspnea and severe anemia. 1. Severe anemia secondary to MDS. The patient's baseline hemoglobin is between 7 and 8. He has been given 3 units of packed red blood cells. On presentation, his hemoglobin was in the 6 range. We would be very judicious in transfusing this patient. Threshold for transfusion is hemoglobin of 8 or less or if he is symptomatic. This is also important given that he has congestive heart failure. Fluid overload is a concern. 2. Acute on chronic congestive heart failure with BNP of 5000. Continued medical management with diuresis and optimization of his medications. Appreciate cardiology recommendations. 3. Mild thrombocytopenia. No evidence of bleeding. We will continue to monitor. 4. Acute on chronic kidney failure likely from hypotension and anemia. CR is 2.01. Thank you for allowing me to participate in the care of this patient. I will continue to follow this patient along. MD JOHN Tran/ /6:42 PM /7:06 PM MTDD
[2017-05-14] MEDS: TAMSULOSIN HCL 0.4 MG CAP PO SCH (20:33)
[2017-05-14] MEDS: METOPROLOL SUCCINATE 25 MG EXTENDED RELEASE TAB PO SCH (21:00)
--- NOTE | 2017-05-14 22:28 | PD.CARD.PN ---
Subjective Subjective Remarks c/o SOB Objective Medications Current Medications Medications (Trade) Dose Ordered Sig/Haley Route Start Time Stop Time Status Last Admin (NS Flush) 2 ml UNSCH PRN IV FLUSH 05/13/17 16:00 (NS Flush) 2 ml BID IV FLUSH 05/13/17 21:00 05/14/17 20:34 (Xanax) 0.5 mg HS PRN PO 05/13/17 16:30 05/13/17 21:20 (Aspirin Chew) 81 mg DAILY CHEW 05/13/17 16:30 05/13/17 18:21 (Lanoxin) 0.125 mg DAILY PO 05/13/17 16:30 05/14/17 09:45 (Pepcid) 20 mg DAILY PO 05/13/17 16:30 05/14/17 09:45 (Synthroid) 75 mcg DAILY@0600 PO 05/14/17 06:00 05/14/17 05:59 (Toprol Xl) 12.5 mg HS PO 05/13/17 21:00 05/13/17 21:20 (Entresto 24-26 Mg) 1 tab BID PO 05/13/17 21:00 05/14/17 20:33 (Zoloft) 50 mg DAILY PO 05/13/17 16:30 05/14/17 09:45 (Flomax) 0.4 mg HS PO 05/13/17 21:00 05/14/17 20:33 (Aristocort 0.1% Oint) 1 applic BID TOPICAL 05/13/17 21:00 05/14/17 20:34 (Flonase Jagdish Spr) 1 spray BID EACH NARE 05/13/17 21:00 05/14/17 20:34 (Ocuvite) 1 tab BID PO 05/13/17 21:00 05/14/17 20:35 (Lasix Inj) 40 mg BID@,18 IVP 05/13/17 18:00 05/14/17 17:43 (KCl) 20 meq BID PO 05/13/17 21:00 05/14/17 20:32 (Lipitor) 40 mg DAILY PO 05/14/17 09:00 05/14/17 09:45 Sodium Chloride 250 ml @ 15 mls/hr ONCE ONCE IV 05/14/17 06:30 05/14/17 23:09 05/14/17 09:46 Vital Signs / I&O Vital Signs Date Time Temp Pulse Resp B/P (MAP) Pulse Ox O2 Delivery O2 Flow Rate FiO2 05/14/17 19:15 97.7 60 17 112/57 (75) 60 05/14/17 19:09 97.6 63 14 136/68 94 05/14/17 18:36 64 05/14/17 17:20 53 05/14/17 16:41 97.7 57 14 117/68 100 05/14/17 16:20 52 05/14/17 16:19 97.7 53 16 111/56 (74) 99 05/14/17 16:07 97.7 52 16 111/56 100 05/14/17 15:43 53 05/14/17 12:02 55 05/14/17 11:30 97.5 54 14 104/53 99 05/14/17 11:29 97.5 55 14 104/53 (70) 99 05/14/17 10:15 97.5 51 16 104/51 98 05/14/17 09:54 97.3 53 16 99/54 97 05/14/17 09:52 21 05/14/17 08:05 97.5 58 18 98/52 (67) 95 05/14/17 07:15 54 05/14/17 06:28 57 05/14/17 05:27 55 05/14/17 04:04 56 05/14/17 03:13 97.8 52 20 98/53 (68) 98 05/14/17 03:13 53 05/14/17 02:19 52 05/14/17 01:15 52 05/14/17 00:19 98 05/14/17 00:09 62 05/13/17 23:48 54 05/13/17 23:48 97.9 52 16 91/55 (67) 95 05/13/17 22:32 58 I/O 05/13/17 05/13/17 05/13/17 05/14/17 05/14/17 05/14/17 06:59 14:59 22:59 06:59 14:59 22:59 Intake Total 1000 ml 1060 ml 240 ml 460 ml 1240 ml Output Total 1325 ml 300 ml 425 ml Balance 1000 ml -265 ml -60 ml 460 ml 815 ml Intake Oral 240 ml 240 ml 800 ml IV Total 1000 ml 30 ml Packed Cells 800 ml 400 ml 400 ml Blood Product IV Normal Saline Flush 20 ml 30 ml 40 ml Output Urine Total 1325 ml 300 ml 425 ml # Voids 3 # Bowel Movements 0 1 Physical Exam GENERAL: Well developed, well nourished. No acute distress. HEENT: +JVD CHEST: Lungs clear to auscultation bilaterally. Unlabored respiratory effort. CARDIAC: Irregularly irregular rate and rhythm with S3 ABDOMEN: Soft, hepatos Bowel sounds present. EXTREMITIES: No clubbing, cyanosis, or edema. Laboratory Laboratory Tests Test 05/14/17 01:20 05/14/17 05:12 Blood Urea Nitrogen 51 MG/DL 49 MG/DL Creatinine 2.01 MG/DL 2.01 MG/DL Random Glucose 105 MG/DL 107 MG/DL Calcium Level 8.4 MG/DL 8.7 MG/DL Sodium Level 140 MEQ/L 141 MEQ/L Potassium Level 4.5 MEQ/L 4.7 MEQ/L Chloride Level 109 MEQ/L 108 MEQ/L Carbon Dioxide Level 23.2 MEQ/L 21.2 MEQ/L Anion Gap 8 MEQ/L 12 MEQ/L Estimat Glomerular Filtration Rate 32 ML/MIN 32 ML/MIN Troponin I 5.38 NG/ML White Blood Count 5.3 TH/MM3 Red Blood Count 2.27 MIL/MM3 Hemoglobin 7.9 GM/DL Hematocrit 22.9 % Mean Corpuscular Volume 101.3 FL Mean Corpuscular Hemoglobin 34.8 PG Mean Corpuscular Hemoglobin Concent 34.4 % Red Cell Distribution Width 30.6 % Platelet Count 79 TH/MM3 Mean Platelet Volume 9.8 FL Neutrophils (%) (Auto) 69.9 % Lymphocytes (%) (Auto) 11.2 % Monocytes (%) (Auto) 16.6 % Eosinophils (%) (Auto) 0.9 % Basophils (%) (Auto) 1.4 % Neutrophils # (Auto) 3.7 TH/MM3 Lymphocytes # (Auto) 0.6 TH/MM3 Monocytes # (Auto) 0.9 TH/MM3 Eosinophils # (Auto) 0.0 TH/MM3 Basophils # (Auto) 0.1 TH/MM3 CBC Comment AUTO DIFF Differential Comment AUTO DIFF CONFIRMED Acanthocytes OCC Prothrombin Time 15.1 SEC Prothromb Time International Ratio 1.3 RATIO Total Protein 6.5 GM/DL Albumin 3.7 GM/DL Magnesium Level 2.6 MG/DL Alkaline Phosphatase 88 U/L Aspartate Amino Transf (AST/SGOT) 42 U/L Alanine Aminotransferase (ALT/SGPT) 17 U/L Total Bilirubin 1.9 MG/DL Direct Bilirubin 0.6 MG/DL Indirect Bilirubin 1.3 MG/DL B-Type Natriuretic Peptide GREATER THAN 5000 PG/ML Folate GREATER THAN 20.0 NG/ML Thyroid Stimulating Hormone 3rd Gen 4.660 uIU/ML Assessment and Plan Problem List: (1) Type 2 myocardial infarction ICD Codes: I21.A1 - Myocardial infarction type 2 (2) Acute on chronic systolic (congestive) heart failure ICD Codes: I50.23 - Acute on chronic systolic (congestive) heart failure (3) Atrial fibrillation ICD Codes: I48.91 - Unspecified atrial fibrillation Status: Chronic Assessment and Plan ? transfuse. Needs more diuresis Peter Crooks MD May 14, 2017 22:28
[2017-05-14 23:25] LABS: HEMATOCRIT 27.9 % (39.0-51.0); REVIEW FLAG FINAL
[2017-05-15] VITALS (25 sets, daily range): BP systolic 103–128; BP diastolic 53–62; PULSE 51–62; RESP 16–18; TEMP 97–97.6; O2SAT 94–98
[2017-05-15 04:50] LABS: HEMATOCRIT 26.9 % (39.0-51.0); MEAN CELL VOLUME 99.5 FL (80.0-100.0); MEAN CORPUSCULAR HEMOGLOBIN 34.3 PG (27.0-34.0); MEAN CORPUSCULAR HGB CONC 34.4 % (32.0-36.0); PLATELET COUNT 79 TH/MM3 (150-450); RED BLOOD COUNT 2.71 MIL/MM3 (4.50-5.90); RED CELL DISTRIBUTION WIDTH 28.5 % (11.6-17.2); WHITE BLOOD COUNT 6.3 TH/MM3 (4.0-11.0)
[2017-05-15 04:55] LABS: REVIEW FLAG FINAL
[2017-05-15] MEDS: LEVOTHYROXINE SODIUM 75 MCG TAB PO SCH (06:10)
[2017-05-15 08:45] LABS: BICARBONATE 21.9 MEQ/L (21.0-32.0); POTASSIUM 4.4 MEQ/L (3.5-5.1)
[2017-05-15] MEDS: MULTIVITAMIN-OPHTHALMIC 1 TAB PO SCH ×2 (09:00→22:27)
[2017-05-15] MEDS: FUROSEMIDE 40 MG/4 ML VIAL IVP SCH ×2 (09:00→17:21)
[2017-05-15] MEDS: POTASSIUM CHLORIDE 20 MEQ CONTROLLED RELEASE TAB PO SCH ×2 (09:00→22:29)
[2017-05-15] MEDS: SERTRALINE HCL 50 MG TAB PO SCH (09:00)
[2017-05-15] MEDS: FLUTICASONE PROPIONATE 50 MCG/ACT 16 GM NASAL SPRAY EACH NARE SCH ×2 (09:00→22:27)
[2017-05-15] MEDS: ATORVASTATIN 40 MG TAB PO SCH (09:00)
[2017-05-15] MEDS: DIGOXIN 0.125 MG TAB PO SCH (09:00)
[2017-05-15] MEDS: FAMOTIDINE 20 MG TAB PO SCH (09:01)
[2017-05-15] MEDS: ASPIRIN 81 MG CHEW TAB CHEW SCH (09:02)
[2017-05-15] MEDS: SODIUM CHLORIDE 0.9% FLUSH 10 ML FLUSH IV FLUSH SCH ×2 (09:02→22:27)
[2017-05-15] MEDS: SACUBITRIL/VALSARTAN 24 MG-26 MG TAB PO SCH ×2 (09:02→22:27)
[2017-05-15] MEDS: TRIAMCINOLONE ACETONIDE 0.1% OINT 15 GM TUBE TOPICAL SCH ×2 (09:03→22:27)
--- NOTE | 2017-05-15 09:41 | HHI.FPPN ---
Subjective Remarks Patient seen and examined this morning. Patient is lying in bed and states he has not gotten out of bed yet. He says he was so poorly yesterday that he went to bed at 7 PM and has been laying there sent. He thinks his shortness of breath has improved a little bit but it is hard for him to tell as he has not gotten up yet. He is inquiring as to why his hemoglobin is always low. He also feels like he does not feel ready to go home yet. He still had shortness of breath and difficulty walking around yesterday. He denies any cough or productive sputum. He denies any fever/chills. He denies any chest pain or pressure. (Ivanna Baumann MD R2) Objective Vitals Vital Signs Date Time Temp Pulse Resp B/P (MAP) Pulse Ox O2 Delivery O2 Flow Rate FiO2 05/15/17 08:25 98 05/15/17 08:05 97.6 55 16 128/62 (84) 98 05/15/17 06:02 57 05/15/17 05:04 58 05/15/17 04:05 62 05/15/17 04:04 97.0 61 17 123/59 (80) 94 05/15/17 03:11 53 05/15/17 02:07 62 05/15/17 01:14 56 05/15/17 00:02 57 05/14/17 23:07 96.5 55 20 108/58 (75) 94 05/14/17 23:00 55 05/14/17 22:00 55 05/14/17 20:00 52 05/14/17 19:15 97.7 60 17 112/57 (75) 60 05/14/17 19:09 97.6 63 14 136/68 94 05/14/17 19:00 61 05/14/17 18:36 64 05/14/17 17:20 53 05/14/17 16:41 97.7 57 14 117/68 100 05/14/17 16:20 52 05/14/17 16:19 97.7 53 16 111/56 (74) 99 05/14/17 16:07 97.7 52 16 111/56 100 05/14/17 15:43 53 05/14/17 12:02 55 05/14/17 11:30 97.5 54 14 104/53 99 05/14/17 11:29 97.5 55 14 104/53 (70) 99 05/14/17 10:15 97.5 51 16 104/51 98 05/14/17 09:54 97.3 53 16 99/54 97 05/14/17 09:52 21 I/O 05/14/17 05/14/17 05/14/17 05/15/17 05/15/17 05/15/17 07:00 15:00 23:00 07:00 15:00 23:00 Intake Total 240 ml 460 ml 1240 ml Output Total 300 ml 425 ml 975 ml Balance -60 ml 460 ml 815 ml -975 ml Intake Oral 240 ml 800 ml IV Total 30 ml Packed Cells 400 ml 400 ml Blood Product IV Normal Saline Flush 30 ml 40 ml Output Urine Total 300 ml 425 ml 975 ml # Bowel Movements 0 1 (Ivanna Baumann MD R2) Result Diagram: 05/15/1742605/15/17426 Objective Remarks GENERAL: No acute distress, lying in bed SKIN: Warm and dry. HEAD: Normocephalic. EYES: No scleral icterus. No injection or drainage. NECK: Supple, trachea midline. No JVD or lymphadenopathy. CARDIOVASCULAR: Irregularly irregular rhythm,, gallops, or rubs. RESPIRATORY: Breath sounds are distant and equal bilaterally, soft crackles in lower matthews of the lungs. No accessory muscle use. GASTROINTESTINAL: Abdomen soft, non-tender, nondistended. MUSCULOSKELETAL: No cyanosis, or edema. BACK: Nontender without obvious deformity. No CVA tenderness. (Ivanna Baumann MD R2) A/P Assessment and Plan 86-year-old male with past medical history of A. 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 Discharge Planning Pending clinical improvement (Ivanna Baumann MD R2) Attending Attestation Patient seen and examined. Case reviewed and discussed with the resident team. Agree with plan of care as discussed with me and documented in the resident note. (Anna Travis MD) Problem List: (1) Chronic kidney disease ICD Codes: N18.9 - Chronic kidney disease, unspecified Status: Chronic Plan: Creatinine 1.9 Follow-up serial BMPs Continue furosemide 40 IV twice a day Baseline creatinine 1.6-2.8 (2) Hypothyroidism ICD Codes: E03.9 - Hypothyroidism, unspecified Status: Chronic Plan: Continue levothyroxine 75 mg daily (3) Acute exacerbation of congestive heart failure ICD Codes: I50.9 - Heart failure, unspecified Status: Acute Plan: Sustained symptoms, output has improved, s/p 4 units PRBCs has limited diuresis Follow up cardiology recs as follows Continue metoprolol 25 daily Continue entresto 1 tab twice a day Continue digoxin 0.125 daily Hold Bumex 1 mg daily Furosemide 40 IV twice a day, Cont KCl 20meq BID f/u daily weights f/u I&Os 1.5L fluid restriction TSH slightly high 4.6, Cont Levothyroxine home dose BNP 4000, BNP (05/14) : >5000 CXR (05/14) :FINDINGS: First moderate congestive failure present, with minimal blunting right posterior sulcus. Would valve prosthesis is noted. There is no pneumothorax. The portion of the bony skeleton visualized is unremarkable.CONCLUSION: Moderate congestive failure. Digitoxin level WNL (4) Atrial fibrillation ICD Codes: I48.91 - Unspecified atrial fibrillation Status: Chronic Plan: Continue management as above Not a candidate for anticoagulation due to MDS Continue daily baby aspirin Per cardiology recommendations (5) Myelodysplastic syndrome ICD Codes: D46.9 - Myelodysplastic syndrome, unspecified Status: Chronic Plan: Patient seems to be unaware of his myelodysplastic syndrome, diagnosed in 2014 and confirmed by bone marrow biopsy, transfusion dependent Per hematology: Receives Aranesp injections, has not been treated with A HYPOMETHYLATING or immunomodulatory agent for his MDS yet, Due to a advanced age, a repeat bone marrow biopsy was not obtained - threshold for transfusion hb <8 OR symptomatic - f/u CBC and pt count (6) Demand ischemia of myocardium ICD Codes: I24.8 - Other forms of acute ischemic heart disease Status: Acute Plan: Troponin 2.67 --> 2.34 --> 3.90. Episodes of chest pain this week Follow-up cardiology recs - Likely demand ischemia due to anemia - Continue aspirin - Not a candidate for catheterization due to comorbidities and advanced age - Not a candidate for heparin due to myelodysplastic disorder Baseline troponin .05 in 01/17 (7) BPH (benign prostatic hyperplasia) ICD Codes: N40.0 - Benign prostatic hyperplasia without lower urinary tract symptoms Status: Chronic Plan: Per patient records. Patient is unsure of this condition. Continue tamsulosin 0.4 daily Hold finasteride 5 daily (suspecting it is old medication) (8) Dementia ICD Codes: F03.90 - Unspecified dementia without behavioral disturbance Status: Chronic Plan: Continue sertraline 50 daily (9) Hyperlipidemia ICD Codes: E78.5 - Hyperlipidemia, unspecified Status: Chronic Plan: Start atorvastatin 40 daily (10) Anemia ICD Codes: D64.9 - Anemia, unspecified Status: Acute Plan: Acute on chronic anemia, related to MDS Hb 9.3 - s/p 4 U PRBCs - Hemoglobin on admission: 6.2 - per Heme recs: Continue to transfuse until hemoglobin >8 and asymptomatic - Per cardiology recommendations: Continue to transfuse until hemoglobin 9.0 (11) Thrombocytopenia ICD Codes: D69.6 - Thrombocytopenia, unspecified Status: Chronic Plan: MDS plt: 79 baseline [54-110] (12) fen/ppx Status: Acute Plan: Fluids: By mouth fluids only, 1.5 L restriction Electrolytes: Follow-up serial BMPs Nutrition: Heart healthy diet DVT prophylaxis: Contraindication for anticoagulation due to myelodysplastic disorder, continue aspirin (Ivanna Baumann MD R2) Problem Qualifiers (1) Chronic kidney disease: Qualified Codes: N18.9 - Chronic kidney disease, unspecified (2) Acute exacerbation of congestive heart failure: Qualified Codes: I50.23 - Acute on chronic systolic (congestive) heart failure Ivanna Baumann MD R2 May 15, 2017 09:41 Anna Travis MD May 15, 2017 14:20
--- NOTE | 2017-05-15 13:15 | PD.ONC.PN ---
Subjective Subjective Remarks Afebrile overnight. Patient feeling much better today than he was yesterday. No complaints. Objective Data Date Time Temp Pulse Resp B/P (MAP) Pulse Ox O2 Delivery O2 Flow Rate FiO2 05/15/17 12:00 56 05/15/17 11:15 97.6 51 18 113/58 (76) 98 05/15/17 11:00 52 05/15/17 10:00 54 05/15/17 09:00 60 05/15/17 08:25 98 05/15/17 08:05 97.6 55 16 128/62 (84) 98 05/15/17 08:00 58 05/15/17 07:00 52 05/15/17 06:02 57 05/15/17 05:04 58 05/15/17 04:05 62 05/15/17 04:04 97.0 61 17 123/59 (80) 94 05/15/17 03:11 53 05/15/17 02:07 62 05/15/17 01:14 56 05/15/17 00:02 57 05/14/17 23:07 96.5 55 20 108/58 (75) 94 05/14/17 23:00 55 05/14/17 22:00 55 05/14/17 20:00 52 05/14/17 19:15 97.7 60 17 112/57 (75) 60 05/14/17 19:09 97.6 63 14 136/68 94 05/14/17 19:00 61 05/14/17 18:36 64 05/14/17 17:20 53 05/14/17 16:41 97.7 57 14 117/68 100 05/14/17 16:20 52 05/14/17 16:19 97.7 53 16 111/56 (74) 99 05/14/17 16:07 97.7 52 16 111/56 100 05/14/17 15:43 53 05/15/17 05/15/17 05/15/17 07:00 15:00 23:00 Output Total 975 ml Balance -975 ml Result Diagram: 05/15/17 0427 05/15/17 0427 Laboratory Results Laboratory Tests Test 05/14/17 23:18 05/15/17 04:27 Hemoglobin 9.3 GM/DL 9.3 GM/DL Hematocrit 27.9 % 26.9 % White Blood Count 6.3 TH/MM3 Red Blood Count 2.71 MIL/MM3 Mean Corpuscular Volume 99.5 FL Mean Corpuscular Hemoglobin 34.3 PG Mean Corpuscular Hemoglobin Concent 34.4 % Red Cell Distribution Width 28.5 % Platelet Count 79 TH/MM3 Mean Platelet Volume 10.0 FL Blood Urea Nitrogen 57 MG/DL Creatinine 2.26 MG/DL Random Glucose 103 MG/DL Calcium Level 9.0 MG/DL Sodium Level 139 MEQ/L Potassium Level 4.4 MEQ/L Chloride Level 106 MEQ/L Carbon Dioxide Level 21.9 MEQ/L Anion Gap 11 MEQ/L Estimat Glomerular Filtration Rate 28 ML/MIN Culture Results Microbiology Date/Time Source Procedure Growth Status 05/14/17 14:05 Stool Stool Stool Occult Blood (ROGER) - Final HEMOCCULT NEGATIVE Complete Administered Medications Medications (Trade) Dose Ordered Sig/Haley Route PRN Reason Start Time Stop Time Status Last Admin Dose Admin Sodium Chloride (NS Flush) 2 ml BID IV FLUSH 05/13/17 21:00 05/15/17 09:02 Alprazolam (Xanax) 0.5 mg HS PRN PO SLEEP 05/13/17 16:30 05/13/17 21:20 Aspirin (Aspirin Chew) 81 mg DAILY CHEW 05/13/17 16:30 05/15/17 09:02 Digoxin (Lanoxin) 0.125 mg DAILY PO 05/13/17 16:30 05/15/17 09:00 Famotidine (Pepcid) 20 mg DAILY PO 05/13/17 16:30 05/15/17 09:01 Levothyroxine Sodium (Synthroid) 75 mcg DAILY@0600 PO 05/14/17 06:00 05/15/17 06:10 Metoprolol Succinate (Toprol Xl) 12.5 mg HS PO 05/13/17 21:00 05/13/17 21:20 Sacubitril/ Valsartan (Entresto 24-26 Mg) 1 tab BID PO 05/13/17 21:00 05/15/17 09:02 Sertraline HCl (Zoloft) 50 mg DAILY PO 05/13/17 16:30 05/15/17 09:00 Tamsulosin HCl (Flomax) 0.4 mg HS PO 05/13/17 21:00 05/14/17 20:33 Triamcinolone Acetonide (Aristocort 0.1% Oint) 1 applic BID TOPICAL 05/13/17 21:00 05/15/17 09:03 Fluticasone Propionate (Flonase Jagdish Spr) 1 spray BID EACH NARE 05/13/17 21:00 05/14/17 20:34 Vit C/Vit E/Zinc/ Copper/Lutein (Ocuvite) 1 tab BID PO 05/13/17 21:00 05/15/17 09:00 Furosemide (Lasix Inj) 40 mg BID@,18 IVP 05/13/17 18:00 05/15/17 09:00 Potassium Chloride (KCl) 20 meq BID PO 05/13/17 21:00 05/15/17 09:00 Atorvastatin Calcium (Lipitor) 40 mg DAILY PO 05/14/17 09:00 05/15/17 09:00 Objective Remarks GENERAL: Pleasant elderly male sitting up in bed in [facility]. SKIN: Warm and dry. HEAD: Normocephalic. EYES: No injection or drainage. NECK: Supple, trachea midline. CARDIOVASCULAR: +S1/S2 RESPIRATORY: Breath sounds equal bilaterally. No accessory muscle use. GASTROINTESTINAL: Abdomen soft, non-tender, nondistended. EXTREMITIES: No cyanosis NEUROLOGICAL: awake and alert, normal speech. Assessment/Plan Problem List: (1) Symptomatic anemia ICD Codes: D64.9 - Anemia, unspecified Status: Acute Plan: --Severe anemia secondary to MDS. --patient's baseline hemoglobin is between 7 and 8. --s/p 3 units of packed red blood cells during this hospitalization -- Threshold for transfusion is hemoglobin of 8 or less or if he is symptomatic. This is also important given that he has congestive heart failure. Fluid overload is a concern. (2) Acute on chronic systolic (congestive) heart failure ICD Codes: I50.23 - Acute on chronic systolic (congestive) heart failure Plan: --Acute on chronic congestive heart failure with BNP of 5000. --Continued medical management with diuresis and optimization of his medications. --cardiology following (3) Thrombocytopenia ICD Codes: D69.6 - Thrombocytopenia, unspecified Status: Chronic Plan: --monitor for bleeding (4) Renal insufficiency ICD Codes: N28.9 - Disorder of kidney and ureter, unspecified Plan: -- Acute on chronic kidney failure likely from hypotension and anemia. Assessment 86y/o male with a history of MDS admitted to the hospital with acute on chronic congestive heart failure and severe anemia. h/o Myelodysplastic syndrome,Hypertension, Chronic atrial fibrillation, Hypothyroidism,Congestive heart failure,Chronic kidney disease,Mild dementia, Macular degeneration, Hyperlipidemia.Cardiac valve replacement, bilateral cataract surgery Bilateral hernia repair Plan 1. monitor CBC 2. continue supportive care Attending Statement The exam, history, and the medical decision-making described in the above note were completed with the assistance of the mid-level provider. I reviewed and agree with the findings presented. I attest that I had a [id number] encounter with the patient on the same day, and personally performed and documented my assessment and findings in the medical record. Katia Alfred May 15, 2017 13:15 Maxx Shoemaker MD May 15, 2017 21:11
--- NOTE | 2017-05-15 15:03 | PD.CARD.PN ---
Subjective Subjective Remarks SOB resolved Objective Medications Current Medications Medications (Trade) Dose Ordered Sig/Haley Route Start Time Stop Time Status Last Admin (NS Flush) 2 ml UNSCH PRN IV FLUSH 05/13/17 16:00 (NS Flush) 2 ml BID IV FLUSH 05/13/17 21:00 05/15/17 09:02 (Xanax) 0.5 mg HS PRN PO 05/13/17 16:30 05/13/17 21:20 (Aspirin Chew) 81 mg DAILY CHEW 05/13/17 16:30 05/15/17 09:02 (Lanoxin) 0.125 mg DAILY PO 05/13/17 16:30 05/15/17 09:00 (Pepcid) 20 mg DAILY PO 05/13/17 16:30 05/15/17 09:01 (Synthroid) 75 mcg DAILY@0600 PO 05/14/17 06:00 05/15/17 06:10 (Toprol Xl) 12.5 mg HS PO 05/13/17 21:00 05/13/17 21:20 (Entresto 24-26 Mg) 1 tab BID PO 05/13/17 21:00 05/15/17 09:02 (Zoloft) 50 mg DAILY PO 05/13/17 16:30 05/15/17 09:00 (Flomax) 0.4 mg HS PO 05/13/17 21:00 05/14/17 20:33 (Aristocort 0.1% Oint) 1 applic BID TOPICAL 05/13/17 21:00 05/15/17 09:03 (Flonase Jagdish Spr) 1 spray BID EACH NARE 05/13/17 21:00 05/14/17 20:34 (Ocuvite) 1 tab BID PO 05/13/17 21:00 05/15/17 09:00 (Lasix Inj) 40 mg BID@,18 IVP 05/13/17 18:00 05/15/17 09:00 (KCl) 20 meq BID PO 05/13/17 21:00 05/15/17 09:00 (Lipitor) 40 mg DAILY PO 05/14/17 09:00 05/15/17 09:00 Vital Signs / I&O Vital Signs Date Time Temp Pulse Resp B/P (MAP) Pulse Ox O2 Delivery O2 Flow Rate FiO2 05/15/17 12:00 56 05/15/17 11:15 97.6 51 18 113/58 (76) 98 05/15/17 11:00 52 05/15/17 10:00 54 05/15/17 09:00 60 05/15/17 08:25 98 05/15/17 08:05 97.6 55 16 128/62 (84) 98 05/15/17 08:00 58 05/15/17 07:00 52 05/15/17 06:02 57 05/15/17 05:04 58 05/15/17 04:05 62 05/15/17 04:04 97.0 61 17 123/59 (80) 94 05/15/17 03:11 53 05/15/17 02:07 62 05/15/17 01:14 56 05/15/17 00:02 57 05/14/17 23:07 96.5 55 20 108/58 (75) 94 05/14/17 23:00 55 05/14/17 22:00 55 05/14/17 20:00 52 05/14/17 19:15 97.7 60 17 112/57 (75) 60 05/14/17 19:09 97.6 63 14 136/68 94 05/14/17 19:00 61 05/14/17 18:36 64 05/14/17 17:20 53 05/14/17 16:41 97.7 57 14 117/68 100 05/14/17 16:20 52 05/14/17 16:19 97.7 53 16 111/56 (74) 99 05/14/17 16:07 97.7 52 16 111/56 100 05/14/17 15:43 53 I/O 05/14/17 05/14/17 05/14/17 05/15/17 05/15/17 05/15/17 07:00 15:00 23:00 07:00 15:00 23:00 Intake Total 240 ml 460 ml 1240 ml Output Total 300 ml 425 ml 975 ml Balance -60 ml 460 ml 815 ml -975 ml Intake Oral 240 ml 800 ml IV Total 30 ml Packed Cells 400 ml 400 ml Blood Product IV Normal Saline Flush 30 ml 40 ml Output Urine Total 300 ml 425 ml 975 ml # Bowel Movements 0 1 Physical Exam GENERAL: Well developed, well nourished. No acute distress. HEENT: +JVD CHEST: Lungs clear to auscultation bilaterally. Unlabored respiratory effort. CARDIAC: Irregularly irregular rate and rhytm ABDOMEN: Soft, hepatos Bowel sounds present. EXTREMITIES: No clubbing, cyanosis, or edema. Laboratory Laboratory Tests Test 05/14/17 23:18 05/15/17 04:27 Hemoglobin 9.3 GM/DL 9.3 GM/DL Hematocrit 27.9 % 26.9 % White Blood Count 6.3 TH/MM3 Red Blood Count 2.71 MIL/MM3 Mean Corpuscular Volume 99.5 FL Mean Corpuscular Hemoglobin 34.3 PG Mean Corpuscular Hemoglobin Concent 34.4 % Red Cell Distribution Width 28.5 % Platelet Count 79 TH/MM3 Mean Platelet Volume 10.0 FL Blood Urea Nitrogen 57 MG/DL Creatinine 2.26 MG/DL Random Glucose 103 MG/DL Calcium Level 9.0 MG/DL Sodium Level 139 MEQ/L Potassium Level 4.4 MEQ/L Chloride Level 106 MEQ/L Carbon Dioxide Level 21.9 MEQ/L Anion Gap 11 MEQ/L Estimat Glomerular Filtration Rate 28 ML/MIN Assessment and Plan Problem List: (1) Type 2 myocardial infarction ICD Codes: I21.A1 - Myocardial infarction type 2 Plan: no anticoagulation due to anemia (2) Acute on chronic systolic (congestive) heart failure ICD Codes: I50.23 - Acute on chronic systolic (congestive) heart failure Plan: improved. OK to DC tomorrow if stable (3) Atrial fibrillation ICD Codes: I48.91 - Unspecified atrial fibrillation Status: Chronic Assessment and Plan If stable DC home tomorrow. Preferred diuretic torsemide 20mg daily (longer t1/ 2 and better bioavailablity). Peter Crooks MD May 15, 2017 15:02
[2017-05-15] MEDS: SPIRONOLACTONE 25 MG TAB PO SCH (17:21)
[2017-05-15] MEDS: METOPROLOL SUCCINATE 25 MG EXTENDED RELEASE TAB PO SCH (21:00)
[2017-05-15] MEDS: TAMSULOSIN HCL 0.4 MG CAP PO SCH (22:28)
[2017-05-16] VITALS: BP 114/55; PULSE 52; RESP 20; TEMP 97.4; O2SAT 95
[2017-05-16 04:00] VITALS: BP 127/60; PULSE 91; RESP 18; TEMP 97.3; O2SAT 94
[2017-05-16] MEDS: LEVOTHYROXINE SODIUM 75 MCG TAB PO SCH (05:37)
[2017-05-16 07:11] LABS: BASOPHIL # 0.1 TH/MM3 (0-0.2); BASOPHIL % 1.5 % (0.0-2.0); EOSINOPHIL # 0.1 TH/MM3 (0-0.4); EOSINOPHIL % 1.9 % (0.0-4.0); LYMPH % 12.3 % (9.0-44.0); LYMPHOCYTE # 0.6 TH/MM3 (1.0-4.8); MEAN CORPUSCULAR HGB CONC 33.3 % (32.0-36.0); MONO % 17.4 % (0.0-8.0); NEUT % 66.9 % (16.0-70.0); PLATELET COUNT 74 TH/MM3 (150-450); RED BLOOD COUNT 2.55 MIL/MM3 (4.50-5.90); WHITE BLOOD COUNT 4.5 TH/MM3 (4.0-11.0)
[2017-05-16 07:17] LABS: HEMO FLAGS AUTO DIFF
[2017-05-16 07:35] LABS: BICARBONATE 23.1 MEQ/L (21.0-32.0); POTASSIUM 4.4 MEQ/L (3.5-5.1)
[2017-05-16 08:02] VITALS: BP 138/60; PULSE 53; RESP 18; TEMP 98.1; O2SAT 92
[2017-05-16] MEDS: DIGOXIN 0.125 MG TAB PO SCH (09:00)
[2017-05-16] MEDS ORDERED: TORSEMIDE 20 MG TAB PO SCH (09:00)
[2017-05-16 09:10] LABS: ACANTHOCYTES OCC (NORMAL); OVALOCYTES 1+ (NORMAL)
[2017-05-16 09:11] LABS: PLATELET ESTIMATE SMEAR LOW (NORMAL); PLATELET MORPHOLOGY ENLARGED (NORMAL); SCAN/DIFF AUTO DIFF CONFIRMED; TOXIC GRANULATION 1+ (NORMAL)
[2017-05-16] MEDS: SERTRALINE HCL 50 MG TAB PO SCH (09:59)
[2017-05-16] MEDS: FAMOTIDINE 20 MG TAB PO SCH (09:59)
[2017-05-16] MEDS: ATORVASTATIN 40 MG TAB PO SCH (10:00)
[2017-05-16] MEDS: SPIRONOLACTONE 25 MG TAB PO SCH (10:00)
[2017-05-16] MEDS: POTASSIUM CHLORIDE 20 MEQ CONTROLLED RELEASE TAB PO SCH (10:00)
[2017-05-16] MEDS: ASPIRIN 81 MG CHEW TAB CHEW SCH (10:00)
[2017-05-16] MEDS: SODIUM CHLORIDE 0.9% FLUSH 10 ML FLUSH IV FLUSH SCH (10:01)
[2017-05-16] MEDS: FLUTICASONE PROPIONATE 50 MCG/ACT 16 GM NASAL SPRAY EACH NARE SCH (10:02)
[2017-05-16] MEDS: TRIAMCINOLONE ACETONIDE 0.1% OINT 15 GM TUBE TOPICAL SCH (10:02)
[2017-05-16] MEDS: MULTIVITAMIN-OPHTHALMIC 1 TAB PO SCH (10:05)
[2017-05-16] MEDS: SACUBITRIL/VALSARTAN 24 MG-26 MG TAB PO SCH (10:05)
--- NOTE | 2017-05-16 10:16 | HHI.FPPN ---
Subjective Remarks Patient feels well. Denies any complaints. Patient reports feeling well enough to go home. (Zhang Murrieta MD R2) Objective Vitals Vital Signs Date Time Temp Pulse Resp B/P (MAP) Pulse Ox O2 Delivery O2 Flow Rate FiO2 05/16/17 04:00 97.3 91 18 127/60 (82) 94 05/16/17 00:00 97.4 52 20 114/55 (74) 95 05/15/17 20:00 97.4 52 18 112/53 (72) 96 05/15/17 20:00 Room Air 05/15/17 20:00 53 05/15/17 18:00 54 05/15/17 17:00 52 05/15/17 16:02 52 05/15/17 15:22 97.6 52 16 103/57 (72) 98 05/15/17 15:00 59 05/15/17 14:00 54 05/15/17 13:00 54 05/15/17 12:00 56 05/15/17 11:15 97.6 51 18 113/58 (76) 98 05/15/17 11:00 52 I/O 05/15/17 05/15/17 05/15/17 05/16/17 05/16/17 05/16/17 06:59 14:59 22:59 06:59 14:59 22:59 Intake Total 480 ml 240 ml Output Total 975 ml 275 ml 400 ml Balance -975 ml 205 ml -160 ml Intake Oral 480 ml 240 ml Output Urine Total 975 ml 275 ml 400 ml # Voids 2 # Bowel Movements 2 (Zhang Murrieta MD R2) Result Diagram: 05/16/17 0632 05/16/17 0632 Imaging Last Impressions Chest X-Ray 05/13/17 1252 Signed Impressions: Service Date/Time: Saturday, May 13, 2017 13:27 - CONCLUSION: Moderate congestive failure. Terry Carrero MD FACR Objective Remarks GENERAL: No acute distress, sitting up in bed SKIN: Warm and dry. HEAD: Normocephalic. EYES: No scleral icterus. No injection or drainage. NECK: Supple, trachea midline. No JVD or lymphadenopathy. CARDIOVASCULAR: Irregularly irregular rhythm,, gallops, or rubs. RESPIRATORY: Breath sounds are CTA bilaterally, no crackles. No accessory muscle use. GASTROINTESTINAL: Abdomen soft, non-tender, nondistended. MUSCULOSKELETAL: No cyanosis, or edema. BACK: Nontender without obvious deformity. No CVA tenderness. (Zhang Murrieta MD R2) A/P Assessment and Plan 86-year-old male with past medical history of A. 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 Discharge Planning Pending clinical improvement (Zhang Murrieta MD R2) Attending Attestation Patient seen and examined. Case reviewed and discussed with the resident team. Agree with plan of care as discussed with me and documented in the resident note. (Anna Travis MD) Problem List: (1) Acute exacerbation of congestive heart failure ICD Codes: I50.9 - Heart failure, unspecified Status: Resolved Plan: Sustained symptoms, output has improved, s/p 4 units PRBCs has limited diuresis Follow up cardiology recs as follows Continue metoprolol 25 daily Continue entresto 1 tab twice a day Continue digoxin 0.125 daily Hold Bumex 1 mg daily Furosemide 40 IV twice a day, Cont KCl 20meq BID f/u daily weights f/u I&Os 1.5L fluid restriction TSH slightly high 4.6, Cont Levothyroxine home dose BNP 4000, BNP (05/14) : >5000 CXR (05/14) :FINDINGS: First moderate congestive failure present, with minimal blunting right posterior sulcus. Would valve prosthesis is noted. There is no pneumothorax. The portion of the bony skeleton visualized is unremarkable.CONCLUSION: Moderate congestive failure. Digitoxin level WNL (2) Myelodysplastic syndrome ICD Codes: D46.9 - Myelodysplastic syndrome, unspecified Status: Chronic Plan: Hgb 8.7 s/p 4 units PRBCs this hospitalization Patient seems to be unaware of his myelodysplastic syndrome, diagnosed in 2014 and confirmed by bone marrow biopsy, transfusion dependent Per hematology: Receives Aranesp injections, has not been treated with A HYPOMETHYLATING or immunomodulatory agent for his MDS yet, Due to a advanced age, a repeat bone marrow biopsy was not obtained - threshold for transfusion hb <8 OR symptomatic, goal >8 - f/u CBC and plt count (3) Demand ischemia of myocardium ICD Codes: I24.8 - Other forms of acute ischemic heart disease Status: Acute Plan: Troponin 2.67 --> 2.34 --> 3.90. Episodes of chest pain this week Follow-up cardiology recs - Likely demand ischemia due to anemia - Continue aspirin - Not a candidate for catheterization due to comorbidities and advanced age - Not a candidate for heparin due to myelodysplastic disorder Baseline troponin .05 in 01/17 (4) Chronic kidney disease ICD Codes: N18.9 - Chronic kidney disease, unspecified Status: Chronic Plan: Creatinine 2.2 Follow-up serial BMPs Discontinue furosemide 40 IV twice a day; torsemide 20mg po qd, per cardiology Baseline creatinine 1.6-2.8 (5) Atrial fibrillation ICD Codes: I48.91 - Unspecified atrial fibrillation Status: Chronic Plan: Continue management as above Not a candidate for anticoagulation due to MDS Continue daily baby aspirin Per cardiology recommendations (6) Hypothyroidism ICD Codes: E03.9 - Hypothyroidism, unspecified Status: Chronic Plan: Continue levothyroxine 75 mg daily (7) BPH (benign prostatic hyperplasia) ICD Codes: N40.0 - Benign prostatic hyperplasia without lower urinary tract symptoms Status: Chronic Plan: Per patient records. Patient is unsure of this condition. Continue tamsulosin 0.4 daily Hold finasteride 5 daily (suspecting it is old medication) (8) Dementia ICD Codes: F03.90 - Unspecified dementia without behavioral disturbance Status: Chronic Plan: Continue sertraline 50 daily (9) Hyperlipidemia ICD Codes: E78.5 - Hyperlipidemia, unspecified Status: Chronic Plan: Start atorvastatin 40 daily (10) Anemia ICD Codes: D64.9 - Anemia, unspecified Status: Resolved Plan: Acute on chronic anemia, related to MDS Hb 8.7 s/p 4 U PRBCs - Hemoglobin on admission: 6.2 - per Heme recs: Continue to transfuse until hemoglobin >8 and asymptomatic - Per cardiology recommendations: Continue to transfuse until hemoglobin 9.0 (11) Thrombocytopenia ICD Codes: D69.6 - Thrombocytopenia, unspecified Status: Chronic Plan: MDS plt: 74 baseline [54-110] (12) fen/ppx Status: Acute Plan: Fluids: By mouth fluids only, 1.5 L restriction Electrolytes: Follow-up serial BMPs Nutrition: Heart healthy diet DVT prophylaxis: Contraindication for anticoagulation due to myelodysplastic disorder, continue aspirin (Zhang Murrieta MD R2) Problem Qualifiers (1) Acute exacerbation of congestive heart failure: Qualified Codes: I50.23 - Acute on chronic systolic (congestive) heart failure (2) Chronic kidney disease: Qualified Codes: N18.9 - Chronic kidney disease, unspecified Zhang Murrieta MD R2 May 16, 2017 10:15 Anna Travis MD May 18, 2017 13:32
[2017-05-16] MEDS ORDERED: SPIR25 PO (10:34)
[2017-05-16] MEDS ORDERED: ATOR40TA16 PO (10:34)
[2017-05-16] MEDS ORDERED: TORS1TAB12 PO (10:34)
--- NOTE | 2017-05-16 10:36 | HHI.DCPOC ---
Discharge Care Plan Diagnosis: (1) Shortness of breath (2) Acute exacerbation of congestive heart failure (3) Atrial fibrillation (4) Anemia (5) Myelodysplastic syndrome Goals to Promote Your Health * To prevent worsening of your condition and complications, please take medications as prescribed. * To maintain your health at the optimal level, please follow up with your doctor. Directions to Meet Your Goals Take your medications as prescribed Follow your dietary instruction Follow activity as directed Keep your appointments as scheduled Take your immunizations and boosters as scheduled If your symptoms worsen call your PCP, if no PCP go to Urgent Care Center or Emergency Room Smoking is Dangerous to Your Health. Avoid second hand smoke Call the 24-hour hour crisis hotline for domestic abuse at Zhang Murrieta MD R2 May 16, 2017 10:36
--- NOTE | 2017-05-16 11:05 | PD.CARD.PN ---
Subjective Subjective Remarks The chart was reviewed. The patient denies chest pain, shortness of breath, bleeding or palpitations. Telemetry has a lot of artifact but probably shows controlled atrial fibrillation. Objective Medications Current Medications Medications (Trade) Dose Ordered Sig/Haley Route Start Time Stop Time Status Last Admin (NS Flush) 2 ml UNSCH PRN IV FLUSH 05/13/17 16:00 (NS Flush) 2 ml BID IV FLUSH 05/13/17 21:00 05/16/17 10:01 (Xanax) 0.5 mg HS PRN PO 05/13/17 16:30 05/13/17 21:20 (Aspirin Chew) 81 mg DAILY CHEW 05/13/17 16:30 05/16/17 10:00 (Lanoxin) 0.125 mg DAILY PO 05/13/17 16:30 05/15/17 09:00 (Pepcid) 20 mg DAILY PO 05/13/17 16:30 05/16/17 09:59 (Synthroid) 75 mcg DAILY@0600 PO 05/14/17 06:00 05/16/17 05:37 (Toprol Xl) 12.5 mg HS PO 05/13/17 21:00 05/13/17 21:20 (Entresto 24-26 Mg) 1 tab BID PO 05/13/17 21:00 05/16/17 10:05 (Zoloft) 50 mg DAILY PO 05/13/17 16:30 05/16/17 09:59 (Flomax) 0.4 mg HS PO 05/13/17 21:00 05/15/17 22:28 (Aristocort 0.1% Oint) 1 applic BID TOPICAL 05/13/17 21:00 05/16/17 10:02 (Flonase Jagdish Spr) 1 spray BID EACH NARE 05/13/17 21:00 05/16/17 10:02 (Ocuvite) 1 tab BID PO 05/13/17 21:00 05/16/17 10:05 (KCl) 20 meq BID PO 05/13/17 21:00 05/16/17 10:00 (Lipitor) 40 mg DAILY PO 05/14/17 09:00 05/16/17 10:00 (Aldactone) 25 mg DAILY PO 05/15/17 17:00 05/16/17 10:00 (Demadex) 20 mg DAILY PO 05/16/17 09:00 05/16/17 09:59 Vital Signs / I&O Vital Signs Date Time Temp Pulse Resp B/P (MAP) Pulse Ox O2 Delivery O2 Flow Rate FiO2 05/16/17 08:02 98.1 53 18 138/60 (86) 92 05/16/17 04:00 97.3 91 18 127/60 (82) 94 05/16/17 00:00 97.4 52 20 114/55 (74) 95 05/15/17 20:00 97.4 52 18 112/53 (72) 96 05/15/17 20:00 Room Air 05/15/17 20:00 53 05/15/17 18:00 54 05/15/17 17:00 52 05/15/17 16:02 52 05/15/17 15:22 97.6 52 16 103/57 (72) 98 05/15/17 15:00 59 05/15/17 14:00 54 05/15/17 13:00 54 05/15/17 12:00 56 05/15/17 11:15 97.6 51 18 113/58 (76) 98 I/O 05/15/17 05/15/17 05/15/17 05/16/17 05/16/17 05/16/17 07:00 15:00 23:00 07:00 15:00 23:00 Intake Total 480 ml 240 ml Output Total 975 ml 275 ml 400 ml Balance -975 ml 205 ml -160 ml Intake Oral 480 ml 240 ml Output Urine Total 975 ml 275 ml 400 ml # Voids 2 # Bowel Movements 2 Physical Exam GENERAL: Well-nourished, well-developed patient in no apparent distress. SKIN: Warm and dry. NECK: JVD normal - less than or equal to 5 cm H20. CARDIOVASCULAR: Irregular rate and rhythm without murmurs, gallops, or rubs. RESPIRATORY: Normal breath sounds - equal bilaterally. No accessory muscle use. No wheezes, rales or rubs. PERIPHERY: No cyanosis, or edema. Laboratory Laboratory Tests Test 05/16/17 06:32 White Blood Count 4.5 TH/MM3 Red Blood Count 2.55 MIL/MM3 Hemoglobin 8.7 GM/DL Hematocrit 26.0 % Mean Corpuscular Volume 102.0 FL Mean Corpuscular Hemoglobin 34.0 PG Mean Corpuscular Hemoglobin Concent 33.3 % Red Cell Distribution Width 29.0 % Platelet Count 74 TH/MM3 Mean Platelet Volume 9.9 FL Neutrophils (%) (Auto) 66.9 % Lymphocytes (%) (Auto) 12.3 % Monocytes (%) (Auto) 17.4 % Eosinophils (%) (Auto) 1.9 % Basophils (%) (Auto) 1.5 % Neutrophils # (Auto) 3.0 TH/MM3 Lymphocytes # (Auto) 0.6 TH/MM3 Monocytes # (Auto) 0.8 TH/MM3 Eosinophils # (Auto) 0.1 TH/MM3 Basophils # (Auto) 0.1 TH/MM3 CBC Comment AUTO DIFF Differential Comment AUTO DIFF CONFIRMED Toxic Granulation 1+ Platelet Estimate LOW Platelet Morphology Comment ENLARGED Ovalocytes 1+ Acanthocytes OCC Blood Urea Nitrogen 58 MG/DL Creatinine 2.23 MG/DL Random Glucose 91 MG/DL Calcium Level 8.6 MG/DL Sodium Level 139 MEQ/L Potassium Level 4.4 MEQ/L Chloride Level 108 MEQ/L Carbon Dioxide Level 23.1 MEQ/L Anion Gap 8 MEQ/L Estimat Glomerular Filtration Rate 28 ML/MIN Assessment and Plan Problem List: (1) Type 2 myocardial infarction ICD Codes: I21.A1 - Myocardial infarction type 2 (2) Acute on chronic systolic (congestive) heart failure ICD Codes: I50.23 - Acute on chronic systolic (congestive) heart failure (3) Atrial fibrillation ICD Codes: I48.91 - Unspecified atrial fibrillation Status: Chronic Assessment and Plan Problems: Acute on chronic systolic congestive heart failure Status post bioprosthetic mitral valve replacement Atrial fibrillation Chronic kidney disease Cardiomyopathy Myelodysplastic syndrome Recommendations: Continue present medical regimen. He is not a candidate for full anticoagulation. Low-cholesterol/salt diet. Follow-up with Dr. Crooks and his PCP. I will sign off and be available if needed. Arvind Valdez MD May 16, 2017 11:05
--- NOTE | 2017-05-16 11:38 | HHI.FF ---
Face to Face Verification Diagnosis: (1) Atrial fibrillation (2) Shortness of breath (3) Anemia (4) Myelodysplastic syndrome (5) Congestive heart failure (6) Acute exacerbation of congestive heart failure Physical Therapy Order: Evaluate and Treat, Improve ambulation, Strength and gait training I have seen patient Gab Mancia on 05/16/17. My clinical findings support the need for the requested home health care services because: Ltd mobility - disease progression Patient has SOB Deconditioned w/ increased weakness High risk of falls I certify that my clinical findings support that this patient is homebound because: Unsteady gait/balance Poor cardiac reserve Zhang Murrieta MD R2 May 16, 2017 11:38
[2017-05-16 12:02] VITALS: BP 102/57; PULSE 51; RESP 18; TEMP 97.4; O2SAT 94
--- NOTE | 2017-05-18 00:59 | HHI.DS ---
Discharge Summary Admission Date May 13, 2017 at 15:52 Discharge Date: May 16, 2017 Admitting Diagnosis symptomatic anemia, thrombocytopenia, CHF, elevated troponin (1) Acute exacerbation of congestive heart failure Diagnosis: Principal Plan: Sustained symptoms, output has improved, s/p 4 units PRBCs has limited diuresis Follow up cardiology recs as follows Continue metoprolol 25 daily Continue entresto 1 tab twice a day Continue digoxin 0.125 daily Hold Bumex 1 mg daily Furosemide 40 IV twice a day, Cont KCl 20meq BID f/u daily weights f/u I&Os 1.5L fluid restriction TSH slightly high 4.6, Cont Levothyroxine home dose BNP 4000, BNP (05/14) : >5000 CXR (05/14) :FINDINGS: First moderate congestive failure present, with minimal blunting right posterior sulcus. Would valve prosthesis is noted. There is no pneumothorax. The portion of the bony skeleton visualized is unremarkable.CONCLUSION: Moderate congestive failure. 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 Episodes of chest pain this week Follow-up cardiology recs - Likely demand ischemia due to anemia - Continue aspirin - Not a candidate for catheterization due to comorbidities and advanced age - Not a candidate for heparin due to myelodysplastic disorder Baseline troponin .05 in 01/17 ICD Codes: I24.8 - Other forms of acute ischemic heart disease Status: Acute (4) Chronic kidney disease Diagnosis: Secondary Plan: Creatinine 2.2 Follow-up serial BMPs Discontinue furosemide 40 IV twice a day; torsemide 20mg po qd, per cardiology Baseline creatinine 1.6-2.8 ICD Codes: N18.9 - Chronic kidney disease, unspecified Status: Chronic (5) Atrial fibrillation Diagnosis: Secondary Plan: Continue management as above Not a candidate for anticoagulation due to MDS Continue daily baby aspirin Per cardiology recommendations ICD Codes: I48.91 - Unspecified atrial fibrillation Status: Chronic (6) Hypothyroidism Diagnosis: Secondary Plan: Continue levothyroxine 75 mg daily ICD Codes: E03.9 - Hypothyroidism, unspecified Status: Chronic (7) BPH (benign prostatic hyperplasia) Diagnosis: Secondary Plan: Per patient records. Patient is unsure of this condition. Continue tamsulosin 0.4 daily Hold finasteride 5 daily (suspecting it is old medication) ICD Codes: N40.0 - Benign prostatic hyperplasia without lower urinary tract symptoms Status: Chronic (8) Dementia Diagnosis: Secondary Plan: Continue sertraline 50 daily ICD Codes: F03.90 - Unspecified dementia without behavioral disturbance Status: Chronic (9) Hyperlipidemia Diagnosis: Secondary Plan: Start atorvastatin 40 daily ICD Codes: E78.5 - Hyperlipidemia, unspecified Status: Chronic (10) Anemia Diagnosis: Principal Plan: Acute on chronic anemia, related to MDS Hb 8.7 s/p 4 U PRBCs - Hemoglobin on admission: 6.2 - per Heme recs: Continue to transfuse until hemoglobin >8 and asymptomatic - Per cardiology recommendations: Continue to transfuse until hemoglobin 9.0 ICD Codes: D64.9 - Anemia, unspecified Status: Resolved (11) Thrombocytopenia Diagnosis: Secondary Plan: MDS plt: 74 baseline [54-110] ICD Codes: D69.6 - Thrombocytopenia, unspecified Status: Chronic (12) fen/ppx Diagnosis: Secondary Plan: Fluids: By mouth fluids only, 1.5 L restriction Electrolytes: Follow-up serial BMPs Nutrition: Heart healthy diet DVT prophylaxis: Contraindication for anticoagulation due to myelodysplastic disorder, continue aspirin Status: Acute Consultants Hematology, cardiology Brief History 86-year-old male, past medical history of atrial fibrillation with RVR, recurrent anemia due to myelodysplastic syndrome, and CHF, sent by his PCP for a hemoglobin of 6.2 and progressive SOB over the past week. he is unable to lie flat and has to prop himself up at night. He does wake up multiple times during the night to pee and notices that he is short of breath. Patient claims he continues to urinate frequently this week. In addition, He has been experiencing chest pain every night this week; this pain feels like an epigastric burning and occurs at rest in the evenings. The patient states this pain lasts a couple of minutes and does not feel like acid reflux. He did not try any medications to alleviate the pain. He did not have any radiation of the pain. He did not experience any shortness of breath or dizziness during these episodes. He is able to walk long distances( for example around the grocery store) and not experience any chest pain. Patient denies any fevers/chills. Patient denies any palpitations. Patient denies any recent illnesses. He is followed by Dr. Crooks, cardiology and Dr. Mcgraw, heme/onc. CBC/BMP: 05/16/17 0632 05/16/17 0632 Significant Findings Laboratory Tests Test 05/15/17 04:27 05/16/17 06:32 Red Blood Count 2.71 MIL/MM3 (4.50-5.90) 2.55 MIL/MM3 (4.50-5.90) Hemoglobin 9.3 GM/DL (13.0-17.0) 8.7 GM/DL (13.0-17.0) Hematocrit 26.9 % (39.0-51.0) 26.0 % (39.0-51.0) Mean Corpuscular Hemoglobin 34.3 PG (27.0-34.0) Red Cell Distribution Width 28.5 % (11.6-17.2) 29.0 % (11.6-17.2) Platelet Count 79 TH/MM3 (150-450) 74 TH/MM3 (150-450) Blood Urea Nitrogen 57 MG/DL (7-18) 58 MG/DL (7-18) Creatinine 2.26 MG/DL (0.60-1.30) 2.23 MG/DL (0.60-1.30) Estimat Glomerular Filtration Rate 28 ML/MIN (>89) 28 ML/MIN (>89) Mean Corpuscular Volume 102.0 FL (80.0-100.0) Monocytes (%) (Auto) 17.4 % (0.0-8.0) Lymphocytes # (Auto) 0.6 TH/MM3 (1.0-4.8) Toxic Granulation 1+ (NORMAL) Platelet Estimate LOW (NORMAL) Platelet Morphology Comment ENLARGED (NORMAL) Ovalocytes 1+ (NORMAL) Chloride Level 108 MEQ/L (98-107) Imaging Last Impressions Chest X-Ray 05/13/17 1252 Signed Impressions: Service Date/Time: Saturday, May 13, 2017 13:27 - CONCLUSION: Moderate congestive failure. Terry Carrero MD FACR PE at Discharge GENERAL: No acute distress, sitting up in bed SKIN: Warm and dry. HEAD: Normocephalic. EYES: No scleral icterus. No injection or drainage. NECK: Supple, trachea midline. No JVD or lymphadenopathy. CARDIOVASCULAR: Irregularly irregular rhythm,, gallops, or rubs. RESPIRATORY: Breath sounds are CTA bilaterally, no crackles. No accessory muscle use. GASTROINTESTINAL: Abdomen soft, non-tender, nondistended. MUSCULOSKELETAL: No cyanosis, or edema. BACK: Nontender without obvious deformity. No CVA tenderness. Hospital Course Patient p/w SOB 2/2 CHF exacerbation and anemia in the context of MDS. Cardiology and hematology were consulted. Patient was transfused 4u PRBC and thereafter kept Hgb above goal of 8, per hematology. Lasix 40mg IV bid was given , and patient seemed to improve. Patient was also started on spironolactone to help diuresis. Patient was discharged on torsemide 20mg po qd because of longer half-life, per cardiology recommendation. Thus, Bumex was discontinued. Pt Condition on Discharge: Stable Discharge Disposition: Disch w/ Home Health Serv Discharge Instructions DIET: Follow Instructions for: Heart Healthy Diet Activities you can perform: See Additionl Instruction Other Activity Instructions: no strenuous activity Follow up Referrals: Cardiology - 2 Weeks PCP Follow-up - 1 Week New Medications: Atorvastatin (Atorvastatin) 40 Mg Tab 40 MG PO DAILY for 30 Days, #30 TAB Spironolactone (Aldactone) 25 Mg Tab 25 MG PO DAILY for 30 Days, #30 TAB Torsemide (Demadex) 20 Mg Tab 20 MG PO DAILY for 30 Days, #30 TAB Continued Medications: Alprazolam (Alprazolam) 0.5 Mg Tab 0.5 MG PO HS PRN for SLEEP, TAB 0 Refills Aspirin (Aspirin) 81 Mg Chew 81 MG CHEW DAILY, TAB 0 Refills Digoxin (Digoxin) 0.125 Mg Tab 0.125 MG PO DAILY for Regulate Heart Beat, #90 TAB 1 Refill Famotidine (Famotidine) 20 Mg Tab 20 MG PO DAILY, #90 TAB 0 Refills Finasteride (Finasteride) 5 Mg Tab 5 MG PO DAILY for Manage Prostate Problems, #30 TAB 0 Refills Do not crush. Fluticasone Nasal [place] (Flonase Nasal [place]) 50 Mcg/Act [place] 50 MCG EACH NARE BID for Allergies, #1 BOTTLE 0 Refills Levothyroxine (Levothyroxine) 75 Mcg Tab 75 MCG PO DAILY for Thyroid, #90 TAB 1 Refill Metoprolol Succinate ER 24 HR (Metoprolol Succinate ER 24 HR) 25 Mg Tab 12.5 MG PO HS, #90 TAB 1 Refill Multiple Vitamins W/ Minerals (Senior Tabs) 1 Tab Tab 1 TAB PO DAILY Multiple Vitamins W/ Minerals (Preservision Areds) 1 Tab 1 TAB PO BID for Nutritional Supplement, TAB 0 Refills Sacubitril-Valsartan (Entresto) 24-26 Mg Tab 1 TAB PO BID for Heart Failure, #60 TAB 0 Refills Sertraline (Sertraline) 50 Mg Tab 50 MG PO DAILY, #30 TAB 1 Refill Tamsulosin (Tamsulosin) 0.4 Mg Cap 0.4 MG PO HS for Manage Prostate Problems, #90 CAP 0 Refills Triamcinolone Topical (Triamcinolone Topical) 0.1 % Oint 1 APPLIC TOPICAL BID for Inflammation, #45 GM 0 Refills Discontinued Medications: Bumetanide (Bumetanide) 1 Mg Tab 1 MG PO DAILY, #30 TAB 1 Refill Zhang Murrieta MD R2 May 18, 2017 00:59
== END 2017-05-16 15:35 | disposition home health service (06) | DRG 280 ==
LOC: NEPC 12:38 → NEDA 15:52 → HCPC 19:24 → N04A 05-15 19:29
PROVIDERS: ADMIT Family Medicine; ATTEND Family Medicine
PROC: 30233N1 Transfusion of Nonautologous Red Blood Cells into Peripheral Vein, Percutaneous Approach (ICD-10-PCS; principal; 2017-05-13)
DX: I13.0 Hypertensive heart and chronic kidney disease with heart failure and stage 1 through stage 4 chronic kidney disease, or unspecified chronic kidney disease (principal); I50.23 Acute on chronic systolic (congestive) heart failure; I21.A1 Myocardial infarction type 2; N17.9 Acute kidney failure, unspecified; I24.8 Other forms of acute ischemic heart disease; D46.9 Myelodysplastic syndrome, unspecified; D69.6 Thrombocytopenia, unspecified; I48.2 Chronic atrial fibrillation; E83.111 Hemochromatosis due to repeated red blood cell transfusions; F03.90 Unspecified dementia, unspecified severity, without behavioral disturbance, psychotic disturbance, mood disturbance, and anxiety; E03.9 Hypothyroidism, unspecified; E78.5 Hyperlipidemia, unspecified; N40.0 Benign prostatic hyperplasia without lower urinary tract symptoms; D63.8 Anemia in other chronic diseases classified elsewhere; Z95.3 Presence of xenogenic heart valve; Z79.82 Long term (current) use of aspirin; H91.90 Unspecified hearing loss, unspecified ear; N18.9 Chronic kidney disease, unspecified; R00.0 Tachycardia, unspecified
CPT/HCPCS: 36415; 36430; 71010; 80048; 80053; 80076; 80162; 82272; 82550; 82552; 82746; 83735; 83880; 84252; 84443; 84484; 85014; 85018; 85025; 85027; 85610; 85730; 86850; 86900; 86901; 86920; 93005; 93306; 96361; 96374; J1940; J7030; J7050; P9016

== ENCOUNTER → 2017-05-13 | Outpatient (CLI) | payer MEDICARE, OTHER ==
[2017-05-13 11:33] LABS: BASOPHIL % 0.3 % (0.0-2.0); EOSINOPHIL # 0.1 TH/MM3 (0-0.4); EOSINOPHIL % 1.6 % (0.0-4.0); LYMPH % 11.5 % (9.0-44.0); LYMPHOCYTE # 0.5 TH/MM3 (1.0-4.8); MEAN CELL VOLUME 106.3 FL (80.0-100.0); MEAN CORPUSCULAR HEMOGLOBIN 35.5 PG (27.0-34.0); MEAN CORPUSCULAR HGB CONC 33.4 % (32.0-36.0); MONO % 13.9 % (0.0-8.0); NEUT % 72.7 % (16.0-70.0); PLATELET COUNT 83 TH/MM3 (150-450); RED BLOOD COUNT 1.73 MIL/MM3 (4.50-5.90); RED CELL DISTRIBUTION WIDTH 29.6 % (11.6-17.2); WHITE BLOOD COUNT 4.2 TH/MM3 (4.0-11.0)
[2017-05-13 11:34] LABS: HEMO FLAGS AUTO DIFF
[2017-05-13 11:37] LABS: HEMATOCRIT 18.4 % (39.0-51.0)
[2017-05-13 11:45] LABS: PLATELET ESTIMATE SMEAR LOW (NORMAL); PLATELET MORPHOLOGY NORMAL (NORMAL); SCAN/DIFF AUTO DIFF CONFIRMED
[2017-05-13 12:52] LABS: ANION GAP 10 MEQ/L (5-15); AST (GOT) 33 U/L (15-37); BICARBONATE 21.2 MEQ/L (21.0-32.0); BLOOD UREA NITROGEN 46 MG/DL (7-18); CHLORIDE 107 MEQ/L (98-107); GLOMERULAR FILTRATION RATE 35 ML/MIN (>89); GLUCOSE,FASTING 108 MG/DL (74-99); MAGNESIUM 2.8 MG/DL (1.5-2.5); POTASSIUM 4.3 MEQ/L (3.5-5.1); SODIUM (NA) 138 MEQ/L (136-145)
[2017-05-13 12:53] LABS: ALT (GPT) 17 U/L (12-78)
[2017-05-13 12:57] LABS: ALKALINE PHOSPHATASE 90 U/L (45-117); CREATINE KINASE 157 U/L (39-308); TOTAL BILIRUBIN ADULT 1.1 MG/DL (0.2-1.0)
== END ==
LOC: OLAB 11:08
PROVIDERS: ATTEND Nurse Practitioner Family
DX: R07.9 Chest pain, unspecified (principal); R00.0 Tachycardia, unspecified; R06.01 Orthopnea
CPT/HCPCS: 36415; 80053; 82550; 82552; 83735; 84484; 85025